=== PATIENT | male | born 1950 | race Caucasian/White ===

== ENCOUNTER → 2019-12-28 08:49 | Outpatient (BNVA) | payer SELFPAY | PROVIDERS: PCP Family Medicine; Visit Provider Internal Medicine ==

== ENCOUNTER 2020-01-24 09:40 | Outpatient (REF) | payer MEDICARE, SELFPAY ==
[2020-01-24 11:41] LABS: Glucose Urine UA NEG (NEG); Leukocyte Esterase Urine NEG (NEG); Nitrite Urine NEG (NEG); Urine Blood NEG (NEG); Urine Ketones NEG (NEG); Urine Protein NEG (NEG-TRACE)
[2020-01-24 11:47] LABS: Appearance Urine CLEAR; Color Urine YELLOW
== END 2020-01-24 09:41 | disposition home or self-care (01) ==
LOC: HO.HMGCLDS 09:40
PROVIDERS: PCP Family Medicine; Visit Provider Family Medicine
DX: R80.9 Proteinuria, unspecified (principal)
CPT/HCPCS: 81003

== ENCOUNTER 2020-03-26 08:52 | Outpatient (REF) | payer MEDICARE, SELFPAY ==
[2020-03-26 11:47] LABS: MANUAL DIFF FLAG NO
[2020-03-26 11:53] LABS: Basophils Percent Auto 0.4 % (0-2); Eosinophils Absolute Auto 0.2 X10*3/uL (0.0-0.4); Eosinophils Percent Auto 2.3 % (0-4); Hematocrit 48.6 % (42-52); Hemoglobin 16.3 g/dl (14.0-18.0); Imm Gran Abs Auto 0.03 X10*3/uL (0.00-0.03); Imm Gran Pct Auto 0.4 % (0.0-0.4); Lymphocytes Absolute Auto 1.5 X10*3/uL (1.2-4.9); Lymphocytes Percent Auto 21.3 % (20-40); Mean Corpuscular HGB Conc 33.5 g/dl (31.0-36.0); Mean Corpuscular Hemoglobin 32.5 pg (27.0-33.0); Monocytes Absolute Auto 0.7 X10*3/uL (0.1-1.2); Monocytes Percent Auto 10.3 % (2-11); Neutrophils Absolute Auto 4.6 X10*3/uL (2.0-8.3); Neutrophils Percent Auto 65.3 % (45-73); Platelet Count 295 X10*3/uL (160-400); Red Blood Count 5.01 X10*6/uL (4.60-5.80); Red Cell Distribution Width 12.6 % (11.0-16.0)
[2020-03-26 12:40] LABS: Alanine Aminotransferase 37 U/L (0-40); Albumin Level 4.6 g/dL (3.5-5.0); Alkaline Phosphatase 95 U/L (39-117); Anion Gap 13 (12-20); Aspartate Amino Transferase 25 U/L (5-37); Bilirubin Total 0.9 mg/dL (0.0-1.0); Blood Urea Nitrogen 23 mg/dL (9-16); C Reactive Protein 0.38 mg/dL (< or = 0.50); Calcium 10.1 mg/dL (8.4-10.2); Carbon Dioxide 29 mmol/L (22-29); Chloride 102 mmol/L (96-108); Estimated Glomerular Filt Rate > 60; Glucose Random 87 mg/dL (60-115); Potassium 4.7 mmol/L (3.3-5.1); Sodium 139 mmol/L (135-145); Total Protein 7.1 g/dL (6.5-8.0); Uric Acid 6.5 mg/dL (3.4-7.0)
[2020-03-26 12:47] LABS: Erythrocyte Sedimentation Rate 4 MM/HR (0-15)
== END 2020-03-26 08:53 | disposition home or self-care (01) ==
LOC: HO.HMGCLDS 08:52
PROVIDERS: PCP Family Medicine; Visit Provider Internal Medicine Rheumatology
DX: M10.9 Gout, unspecified (principal); Z79.899 Other long term (current) drug therapy
CPT/HCPCS: 36415; 80053; 84550; 85025; 85652; 86140

== ENCOUNTER 2020-04-20 10:08 | Outpatient (REF) | payer MEDICARE, SELFPAY ==
[2020-04-20 12:19] LABS: Alanine Aminotransferase 34 U/L (0-40); Anion Gap 13 (12-20); Blood Urea Nitrogen 22 mg/dL (9-16); Carbon Dioxide 29 mmol/L (22-29); Chloride 103 mmol/L (96-108); Estimated Glomerular Filt Rate > 60; Potassium 4.5 mmol/L (3.3-5.1); Sodium 140 mmol/L (135-145)
[2020-04-20 12:24] LABS: Free T4 (Free Thyroxine) 0.93 ng/dL (0.71-1.85); Thyroid Stimulating Hormone 1.72 uIU/mL (0.32-4.0)
== END 2020-04-20 10:09 | disposition home or self-care (01) ==
LOC: HO.HMGCLDS 10:08
PROVIDERS: PCP Family Medicine; Visit Provider Family Medicine
DX: E03.9 Hypothyroidism, unspecified (principal); E78.00 Pure hypercholesterolemia, unspecified; I10 Essential (primary) hypertension; Z79.899 Other long term (current) drug therapy
CPT/HCPCS: 36415; 80051; 82550; 82565; 84439; 84443; 84460; 84520

== ENCOUNTER → 2020-06-25 09:26 | Outpatient (BNVA) | payer SELFPAY | PROVIDERS: PCP Family Medicine; Visit Provider Internal Medicine | DX: Z02.79 Encounter for issue of other medical certificate (principal) ==

== ENCOUNTER 2020-12-17 09:37 | Day surgery (SDC) | payer MEDICARE, SELFPAY ==
--- NOTE | 2020-12-14 08:45 | P.CONAN_ITS ---
Documented by User: Sherry Shetty NP 12/14/20 08:45 HPI - Anesthesia Eval Consult details Narrative: 70yo M for Upper Endoscopy and Colonoscopy [facility] Past Medical History Medical History (Updated 12/10/20 @ 16:15 by Janiya Lazaro, HILARIO) Anxiety Arthritis Bilateral hearing loss Cough GERD (gastroesophageal reflux disease) Gout Hiatal hernia History of kidney stones Hyperlipidemia Hypothyroidism On beta gabe at home Surgical History Surgical History (Updated 12/10/20 @ 16:08 by Janiya Lazaro, HILARIO) History of esophagogastroduodenoscopy (EGD) History of eye surgery History of nasal surgery History of rectal surgery Hx laparoscopic cholecystectomy Hx of colonoscopy Social History Social History Patient Tobacco Use Status: Never used Tobacco Second Hand Smoke Exposure: No Use of substances other than those prescribed or required for medical reasons: No Are you DNR?: No Advance Directives: No Advance Directives Information Provided: Yes Advance Directives on File: No Meds Allergies Allergy/AdvReac Type Severity Reaction Status Date / Time niacin [NIACIN] Allergy Intermediate RASH, Verified 12/17/20 09:57 strange sensation/overheats Home Medications Medication Instructions Recorded Confirmed Last Taken Type allopurinol 300 mg tablet 1 tab PO DAILY 12/10/20 12/10/20 Unknown History calcium carbonate 300 mg (750 mg) 300 mg PO BID PRN 12/10/20 12/10/20 Unknown History chewable tablet (Tums) cetirizine 10 mg tablet (Allergy 10 mg PO DAILY 12/10/20 12/10/20 Unknown History Relief (cetirizine)) gemfibrozil 600 mg tablet 1 tab PO DAILY 12/10/20 12/10/20 Unknown History levothyroxine 150 mcg tablet 1 tab PO DAILY 12/10/20 12/10/20 Unknown History metoprolol succinate 25 mg 1 tab PO DAILY 12/10/20 12/10/20 Unknown History tablet,extended release 24 hr multivitamin 1 tab PO DAILY 12/10/20 12/10/20 Unknown History omeprazole 20 mg capsule,delayed 1 cap PO BID 12/10/20 12/10/20 Unknown History release Exam Exam Date and Time: December 14, 2020 0845 Assessment and Plan Assessment Anesthesia Assessment: Chart Reviewed Documented by User: Emily Marcelo MD 12/17/20 10:08 [facility] Past Medical History Medical History (Updated 12/10/20 @ 16:15 by Janiya Lazaro, RN) Anxiety Arthritis Bilateral hearing loss Cough GERD (gastroesophageal reflux disease) Gout Hiatal hernia History of kidney stones Hyperlipidemia Hypothyroidism On beta gabe at home Family History Family history of problems with anesthesia: No Surgical History Surgical History (Updated 12/10/20 @ 16:08 by Janiya Lazaro, RN) History of esophagogastroduodenoscopy (EGD) History of eye surgery History of nasal surgery History of rectal surgery Hx laparoscopic cholecystectomy Hx of colonoscopy History of Problems with Anesthesia: No Social History Social History Patient Tobacco Use Status: Never used Tobacco Second Hand Smoke Exposure: No Use of substances other than those prescribed or required for medical reasons: No Are you DNR?: No Advance Directives: No Advance Directives Information Provided: Yes Advance Directives on File: No Meds Allergies Allergy/AdvReac Type Severity Reaction Status Date / Time niacin [NIACIN] Allergy Intermediate RASH, Verified 12/17/20 09:57 strange sensation/overheats Home Medications Medication Instructions Recorded Confirmed Last Taken Type allopurinol 300 mg tablet 1 tab PO DAILY 12/10/20 12/10/20 Unknown History calcium carbonate 300 mg (750 mg) 300 mg PO BID PRN 12/10/20 12/10/20 Unknown History chewable tablet (Tums) cetirizine 10 mg tablet (Allergy 10 mg PO DAILY 12/10/20 12/10/20 Unknown History Relief (cetirizine)) gemfibrozil 600 mg tablet 1 tab PO DAILY 12/10/20 12/10/20 Unknown History levothyroxine 150 mcg tablet 1 tab PO DAILY 12/10/20 12/10/20 Unknown History metoprolol succinate 25 mg 1 tab PO DAILY 12/10/20 12/10/20 Unknown History tablet,extended release 24 hr multivitamin 1 tab PO DAILY 12/10/20 12/10/20 Unknown History omeprazole 20 mg capsule,delayed 1 cap PO BID 12/10/20 12/10/20 Unknown History release Exam Airway Mallampati Class: II (Multiple caps laterally) TM Dist: >3cm Neck ROM: Full Heart: rrr Lungs: cta Assessment and Plan Assessment Anesthesia Assessment: Anesthesia Plan Discussed and Chart Reviewed Final Anesthetic Review Family History of Problems with Anesthesia: No History of Problems with Anesthesia: No ASA Class: III Final Preanesthetic Review: No Changes in Pt Med Stat and Meds/Allgs Chart Reviewed Patient Risk: Intermediate Procedure Risk: Intermediate Anesthetic Plan Anesthetic Plan: MAC: Disposition: Standard PACU
[2020-12-17 09:49] VITALS: BP 127/81; PULSE 88; RESP 16; TEMP 36.2; O2SAT 96; BMI 36.0
--- NOTE | 2020-12-17 10:33 | P.CONAN_ITS ---
FORMERLY [facility], LATER [facility] Past Medical History Medical History (Updated 12/10/20 @ 16:15 by Janiya Lazaro RN) Anxiety Arthritis Bilateral hearing loss Cough GERD (gastroesophageal reflux disease) Gout Hiatal hernia History of kidney stones Hyperlipidemia Hypothyroidism On beta gabe at home Family History Family history of problems with anesthesia: No Surgical History Surgical History (Updated 12/10/20 @ 16:08 by Janiya Lazaro RN) History of esophagogastroduodenoscopy (EGD) History of eye surgery History of nasal surgery History of rectal surgery Hx laparoscopic cholecystectomy Hx of colonoscopy History of Problems with Anesthesia: No Social History Social History Patient Tobacco Use Status: Never used Tobacco Second Hand Smoke Exposure: No Use of substances other than those prescribed or required for medical reasons: No Are you DNR?: No Advance Directives: No Advance Directives Information Provided: Yes Advance Directives on File: No Meds Allergies Allergy/AdvReac Type Severity Reaction Status Date / Time niacin [NIACIN] Allergy Intermediate RASH, Verified 12/17/20 09:57 strange sensation/overheats Active Medications: Current Medications Lactated Ringer's (Lr) 1,000 mls @ 100 mls/hr IVCONT .Q10H SIA Sodium Biphosphate/Sodium Phosphate (Sodium Phosphate,[place]-Dibasic 133 Ml Enema) 133 ml AL ONCE PRN PRN Reason: Poor Colonoscopy Prep Results Home Medications Medication Instructions Recorded Confirmed Last Taken Type allopurinol 300 mg tablet 1 tab PO DAILY 12/10/20 12/10/20 Unknown History calcium carbonate 300 mg (750 mg) 300 mg PO BID PRN 12/10/20 12/10/20 Unknown History chewable tablet (Tums) cetirizine 10 mg tablet (Allergy 10 mg PO DAILY 12/10/20 12/10/20 Unknown History Relief (cetirizine)) gemfibrozil 600 mg tablet 1 tab PO DAILY 12/10/20 12/10/20 Unknown History levothyroxine 150 mcg tablet 1 tab PO DAILY 12/10/20 12/10/20 Unknown History metoprolol succinate 25 mg 1 tab PO DAILY 12/10/20 12/10/20 Unknown History tablet,extended release 24 hr multivitamin 1 tab PO DAILY 12/10/20 12/10/20 Unknown History omeprazole 20 mg capsule,delayed 1 cap PO BID 10/25/21 10/25/21 Unknown History release Exam Exam Date and Time: December 17, 2020 1033 Height,Weight and Vital Signs: Height 5 ft 7 in Weight 104.326 kg Last Vital Signs Temp 97.2 F 12/17/20 09:49 Pulse 88 12/17/20 09:49 Resp 16 12/17/20 09:49 BP 127/81 12/17/20 09:49 Pulse Ox 96 12/17/20 09:49 Airway Mallampati Class: II TM Dist: >3cm Neck ROM: Full Heart: rrr Lungs: cta Assessment and Plan Assessment Anesthesia Assessment: Anesthesia Plan Discussed and Chart Reviewed Final Anesthetic Review Family History of Problems with Anesthesia: No History of Problems with Anesthesia: No NPO: Yes ASA Class: III Final Preanesthetic Review: No Changes in Pt Med Stat, Meds/Allgs Chart Reviewed and Consent Obtained/Reviewed Patient Risk: Intermediate Procedure Risk: Intermediate Anesthetic Plan Anesthetic Plan: MAC: Disposition: Standard PACU
[2020-12-17 12:11] VITALS: BP 112/76; PULSE 82; RESP 16; TEMP 36.7; O2SAT 94
--- NOTE | 2020-12-17 12:16 | P.BOP_ITS ---
Brief Operative Note Date of Service: 12/17/20 Pre-op diagnosis: GERD, Screening Post-op diagnosis: other (Hiatal hernia, Gastric polyps, Diverticulosis) Procedure: EGD with biopsies, Colonoscopy to the cecum Surgeon: Mohit Vasquez Anesthesia: MAC Was an Raise Drill Operator used for this Procedure?: No Estimated blood loss (mL): 3.0 Pathology: other (A. Gastric polyps B. EG Junction at 35cm) Condition: stable Disposition: PACU
[2020-12-17 12:30] VITALS: BP 115/93; PULSE 73; RESP 18; TEMP 36.7; O2SAT 99
--- NOTE | 2020-12-17 20:25 | OP_ITS ---
SURGEON: Mohit Vasquez MD INDICATIONS: The patient presents for evaluation of chronic gastroesophageal reflux and colorectal cancer screening. Full consent has been obtained from him for this, including risks of bleeding and perforation. PREOPERATIVE DIAGNOSIS: POSTOPERATIVE DIAGNOSIS: PROCEDURE PERFORMED: Esophagogastroduodenoscopy with biopsies, and colonoscopy to cecum. ESTIMATED BLOOD LOSS: COMPLICATIONS: ANESTHESIA: Monitored anesthesia care. ASSISTANTS: SPECIMENS: PREOPERATIVE DIAGNOSES: Gastroesophageal reflux and colorectal cancer screening. POSTOPERATIVE DIAGNOSES: Gastroesophageal reflux and colorectal cancer screening, hiatal hernia, gastric polyps, diverticulosis and internal hemorrhoids. DESCRIPTION OF PROCEDURE: The patient was placed in the left lateral decubitus position. The Olympus video gastroscope was passed in the posterior oropharynx and upper esophagus under direct vision. The scope was passed slowly into the distal esophagus. The gastroesophageal junction appeared at 35 cm. This area was slightly irregular consistent with chronic reflux, but there was no evidence of any esophagitis nor any definitive evidence of Ramirez's mucosa. The scope entered into the stomach. There was a small to moderate-sized hiatal hernia. The scope was advanced to the pylorus and the duodenum was cannulated the descending portion. The duodenum including the bulb appeared normal without mass or ulceration. The scope was withdrawn back in the stomach. The gastric antrum and body appeared normal with good peristalsis. The scope was retroflexed visualizing the proximal stomach carefully, which revealed multiple hyperplastic appearing gastric polyps but with no sign of any mass or ulceration. Several of polyps were biopsied. The scope was withdrawn back in the esophagus. Biopsies were obtained at the EG junction at 35 cm. Proximal to this, the esophageal mucosa appeared normal. The scope was withdrawn from the patient. He was turned around for the colonoscopy. The digital rectal exam revealed no abnormalities. The Olympus video pediatric colonoscope was entered into the rectum and advanced easily to the cecum. Once in the cecum, I did identify normal-appearing cecal pouch with appendiceal orifice and a normal-appearing ileocecal valve. There was transillumination of light deep in the right lower quadrant. The entire cecum and ileocecal valve appeared normal. The scope was slowly withdrawn assessing all mucosal surfaces carefully. Preparation was excellent. I did not visualize any sign of polyps, colitis, nor angiodysplasia. There was a mild amount of sigmoid diverticulosis. In the rectum, scope was retroflexed visualizing internal hemorrhoids, but no other pathology. The rectal mucosa appeared normal. The scope was straightened out and withdrawn from the patient. He tolerated the procedure well and was returned to the recovery area in stable condition. IMPRESSION: 1. Hiatal hernia, gastroesophageal reflux. 2. Gastric polyps. 3. Diverticulosis. 4. Internal hemorrhoids. PLAN: The results of biopsy will be checked. If the upper endoscopy biopsies happen to show Ramirez's esophagus, I would recommend a repeat upper endoscopy in 3 years. If there is no evidence of any Ramirez's esophagus, I do not think he will need any further upper endoscopies. He was advised to continue his daily omeprazole. Given today's negative colonoscopy, negative exam in 2009, and no family history of colon cancer other than his mother in her 70s, I would be inclined to hold off on any further screening colonoscopies given his age. He would otherwise see me on a p.r.n. basis. MD SUE Soto/LAWRENCE / [phone] MAX
== END 2020-12-17 13:24 | disposition home or self-care (01) ==
PROVIDERS: PCP Family Medicine; Visit Provider Internal Medicine
PROC: (CPT 43239; principal; 2020-12-17 11:10)
DX: Z12.11 Encounter for screening for malignant neoplasm of colon (principal); Z80.0 Family history of malignant neoplasm of digestive organs; K57.30 Diverticulosis of large intestine without perforation or abscess without bleeding; K64.8 Other hemorrhoids; K21.9 Gastro-esophageal reflux disease without esophagitis; K31.7 Polyp of stomach and duodenum; K44.9 Diaphragmatic hernia without obstruction or gangrene; Z79.899 Other long term (current) drug therapy
CPT/HCPCS: 43239; G0105; 88305; 88342

== ENCOUNTER → 2020-12-25 09:32 | Outpatient (BNVA) | payer SELFPAY | PROVIDERS: PCP Family Medicine; Visit Provider Internal Medicine | DX: Z02.79 Encounter for issue of other medical certificate (principal) ==

== ENCOUNTER 2021-02-11 08:13 | Outpatient (REF) | payer MEDICARE, SELFPAY ==
[2021-02-11 11:53] LABS: Estimated Average Glucose 120 mg/dL; Hemoglobin A1c % 5.8 %
[2021-02-11 12:00] LABS: Alanine Aminotransferase 32 U/L (0-40); Calcium 9.8 mg/dL (8.4-10.2); Estimated Glomerular Filt Rate > 60; Glucose Fasting 99 mg/dL (60-99)
[2021-02-11 12:09] LABS: Free T4 (Free Thyroxine) 0.97 ng/dL (0.71-1.85); Thyroid Stimulating Hormone 0.78 uIU/mL (0.32-4.0)
== END 2021-02-11 08:14 | disposition home or self-care (01) ==
LOC: HO.HMGCLDS 08:13
PROVIDERS: PCP Family Medicine; Visit Provider Family Medicine
DX: E03.9 Hypothyroidism, unspecified (principal); E83.52 Hypercalcemia; Z79.899 Other long term (current) drug therapy; Z83.3 Family history of diabetes mellitus
CPT/HCPCS: 36415; 82310; 82550; 82565; 82947; 83036; 84439; 84443; 84460

== ENCOUNTER 2021-02-12 09:06 | Outpatient (REF) | payer MEDICARE, SELFPAY ==
--- NOTE | ~2021-02-12 | XR_ITS ---
EXAMINATION: XR CHEST CLINICAL INFORMATION: Cough. Status post Covid positive. COMPARISON: April 08, 2019 and January 28, 2018 TECHNIQUE: 2 views of the chest were obtained. FINDINGS: Chronic changes of interstitial lung disease and scarring at the left base is seen. No definite new focus of disease is appreciated. Heart normal size. No evidence of pulmonary edema. No pneumothorax or significant pleural effusion. XR/XR chest 2V IMPRESSION: Persistent left lung base disease without change from April 08, 2019
== END 2021-02-12 09:07 | disposition home or self-care (01) ==
LOC: HO.HMGCX 09:06
PROVIDERS: PCP Family Medicine; Visit Provider Family Medicine
DX: R06.00 Dyspnea, unspecified (principal); R05.9 Cough, unspecified; Z86.16 Personal history of COVID-19
CPT/HCPCS: 71046

== ENCOUNTER 2021-03-05 10:16 | Outpatient (REF) | payer MEDICARE, SELFPAY ==
[2021-03-05 11:35] LABS: Appearance Urine CLEAR; Color Urine YELLOW; Glucose Urine UA NEG (NEG); Leukocyte Esterase Urine NEG (NEG); Nitrite Urine NEG (NEG); PH 5.5 (5.0-8.0); Urine Blood NEG (NEG); Urine Ketones NEG (NEG); Urine Protein NEG (NEG-TRACE)
== END 2021-03-05 10:17 | disposition home or self-care (01) ==
LOC: HO.HMGCLDS 10:16
PROVIDERS: Visit Provider Family Medicine
DX: R80.9 Proteinuria, unspecified (principal)
CPT/HCPCS: 81003

== ENCOUNTER 2021-03-15 10:29 | Outpatient (REF) | payer MEDICARE, SELFPAY ==
--- NOTE | 2021-03-15 | PFT_ITS ---
Forced vital capacity 63, FEV1 76%. FEV1/FVC ratio is 88. FEF 25/75 204%. MVV 112%. All these values indicate that the flow volumes are normal and no obstructive disorder noted. There was no response to bronchodilator therapy. Lung volumes, total lung capacity is 64% and residual volume 70%. Diffusion capacity not performed. CONCLUSION: These findings are suggestive of moderately severe restrictive pulmonary disorder. No significant obstructive airway disorder. Clinical correlation recommended. MD NILES Muro/MODL / [phone]
== END 2021-03-15 10:30 | disposition home or self-care (01) ==
LOC: HO.RESP 10:29
PROVIDERS: PCP Family Medicine; Visit Provider Family Medicine
DX: J84.10 Pulmonary fibrosis, unspecified (principal); R05.9 Cough, unspecified
CPT/HCPCS: 94060; 94727

== ENCOUNTER → 2021-03-22 09:59 | Outpatient (BNVA) | payer MEDICARE, SELFPAY | PROVIDERS: PCP Family Medicine; Visit Provider Internal Medicine Pulmonary Disease | DX: J84.10 Pulmonary fibrosis, unspecified (principal); U09.9 Post COVID-19 condition, unspecified; R06.00 Dyspnea, unspecified | CPT/HCPCS: 99202 ==

== ENCOUNTER 2021-04-25 10:54 | Outpatient (REF) | payer MEDICARE, SELFPAY ==
[2021-04-25 13:40] LABS: MANUAL DIFF FLAG NO
[2021-04-25 13:46] LABS: Basophils Percent Auto 0.3 % (0-2); Eosinophils Absolute Auto 0.2 X10*3/uL (0.0-0.4); Eosinophils Percent Auto 2.6 % (0-4); Hematocrit 46.4 % (42.0-52.0); Hemoglobin 15.2 g/dl (14.0-18.0); Imm Gran Abs Auto 0.03 X10*3/uL (0.00-0.03); Imm Gran Pct Auto 0.5 % (0.0-0.4); Lymphocytes Absolute Auto 1.3 X10*3/uL (1.2-4.9); Lymphocytes Percent Auto 19.8 % (20-40); Mean Corpuscular HGB Conc 32.8 g/dl (31.0-36.0); Mean Corpuscular Hemoglobin 32.1 pg (27.0-33.0); Mean Corpuscular Volume 98.1 fL (80.0-98.0); Mean Platelet Volume 10.9 fL (9.4-12.4); Monocytes Absolute Auto 0.6 X10*3/uL (0.1-1.2); Monocytes Percent Auto 9.2 % (2-11); Neutrophils Absolute Auto 4.3 x10*3/uL (2.0-8.3); Neutrophils Percent Auto 67.6 % (45-73); Platelet Count 288 X10*3/uL (160-400); Red Blood Count 4.73 X10*6/uL (4.60-5.80); Red Cell Distribution Width 12.9 % (11.0-16.0); White Blood Count 6.4 X10*3/uL (4.8-10.8)
[2021-04-25 13:58] LABS: Alanine Aminotransferase 32 U/L (0-40); Albumin Level 4.3 g/dL (3.5-5.0); Alkaline Phosphatase 86 U/L (39-117); Anion Gap 13 (12-20); Aspartate Amino Transferase 28 U/L (5-37); Blood Urea Nitrogen 27 mg/dL (9-16); C Reactive Protein 0.61 mg/dL (< or = 0.50); Calcium 9.8 mg/dL (8.4-10.2); Carbon Dioxide 24 mmol/L (22-29); Chloride 105 mmol/L (96-108); Estimated Glomerular Filt Rate > 60; Glucose Random 132 mg/dL (60-115); Potassium 4.4 mmol/L (3.3-5.1); Sodium 138 mmol/L (135-145); Total Protein 6.8 g/dL (6.5-8.0)
[2021-04-25 15:02] LABS: Erythrocyte Sedimentation Rate 6 MM/HR (0-15)
== END 2021-04-25 10:55 | disposition home or self-care (01) ==
LOC: HO.HMGCLDS 10:54
PROVIDERS: Visit Provider Internal Medicine Rheumatology
DX: M10.9 Gout, unspecified (principal); Z79.899 Other long term (current) drug therapy
CPT/HCPCS: 36415; 80053; 85025; 85652; 86140

== ENCOUNTER → 2021-05-22 09:38 | Outpatient (REF) | payer MEDICARE, SELFPAY ==
--- NOTE | 2021-05-22 09:41 | CA_ITS ---
Transthoracic Echocardiogram Patient (Last, First, Middle): Jermaine Stiles P Gender: Male Date of : 1950 Age: 71 Procedure Date: 05/22/2021 Procedure Type: Transthoracic Echocardiogram Location: OP Height: 170.18 cm Weight: 102.06 kg BSA: 2.13 m2 Heart Rate: bpm BP: 124 / 80 mmHg Weir Fisherman: Referring MD: Ricardo Lowry MD Symptoms: R06.00 - Dyspnea, unspecified Study Quality: Fair ECG Rhythm: Sinus Conclusions: - 1. Normal LV systolic function with impaired relaxation filling pattern 2. Normal cardiac valvular Doppler 3. Normal RV systolic pressure 4. No gross pericardial effusion Findings Left Ventricle Normal left ventricular size, thickness, and systolic function. The visually estimated ejection fraction is between 55-60%. Spectral Doppler is indicative of an impaired relaxation filling pattern. E/E prime ratio is between 8 and 15 consistent with indeterminate filling pressures. There is at least moderate focal asymmetric hypertrophy of the basal septum without any obstructive physiology Right Ventricle Normal right ventricular cavity size and systolic function. Atria Both atria are normal in size. There is no evidence of interatrial shunt. Aortic Valve Normal aortic valve structure and function. There is no aortic valve stenosis. There is no aortic valve regurgitation. Mitral Valve Normal mitral valve structure and function. There is trace mitral valve regurgitation. There is no mitral valve stenosis. Pulmonic Valve The pulmonic valve was not well visualized. Tricuspid Valve Normal tricuspid valve structure. There is trace tricuspid valve regurgitation. The right ventricular systolic pressure is normal. Prior Study Comparison No prior study available for comparison. Measurements 2D Linear Measurements IVSd: 0.93 0.6-0.9/0.6-1.0 cm LVIDd: 4.32 3.9-5.3/4.2-5.9 cm LVIDd Index: 2.03 2.4-3.2/2.2-3.1 cm/m2 LVIDs: 2.95 2.0-3.6 cm LVPWd: 1.03 0.7-1.1 cm LA Diam: 2.90 2.7-3.8/3.0-4.0 cm LAIDs Index: 1.36 1.5-2.3 cm/m2 LV Mass: 173.73 67-162/88-224 g LV Mass Index: 81.57 43-95/49-115 g/m2 LVOT Diam: 2.40 3.0+(-)1.3 cm 2D Systolic Function EF 4C: 59.60 >55% EF 2C: 55.90 >55% EF BiP: 58.20 >55% Mitral Valve MV Pk E: 0.65 MV PK A: 1.11 MV Decel Time: 123.00 E/A: 0.60 E'Lateral: 6.85 E'Medial: 4.35 E/E' Med: 14.90 E/E' Lat: 9.40 PHT: 36.00 MVA PHT: 6.11 Decel Burnett: 5.26 Aortic Valve AoV Pk Abhi: 1.22 AoV Mn Abhi: 0.83 AoV VTI: 0.25 AoV Pk Grad: 6.00 Aov Mn Grad: 3.00 JODY Cont.VTI: 3.79 LVOT LVOT Pk Abhi: 0.93 LVOT Mn Abhi: 0.66 LVOT VTI: 0.21 LVOT Pk Grad: 3.00 LVOT Mn Grad: 2.00 LVOT Diam: 2.40 LVOT Area: 4.52 Diastolic Function MV Pk E: 0.65 MV Pk A: 1.11 E/A: 0.60 E'Medial: 4.35 E/E' Med: 14.90 E' Laterial: 6.85 E/E' Lat: 9.40 Right Ventricle TAPSE (mm): 24.00 Tricuspid Valve TR Pk Abhi: 2.04 TR Pk Grad: 17.00 RA Press: 3.00 RVSP: 20.00 Great Vessels Aorta Sinus of Valsalva: 3.80 2.0-3.5 cm Ao Asc: 3.70 2.1-3.4 cm Pulmonary Valve PV Pk Abhi: 0.77 Peak PV Grad: 2.00 Updated in Other Vendor System with Status of Final Connor Linn MD electronically signed on 05/23/2021 9:20:17 AM with status of Final
== END ==
LOC: HO.CARD 09:38
PROVIDERS: Visit Provider Internal Medicine Pulmonary Disease
DX: R06.00 Dyspnea, unspecified (principal)
CPT/HCPCS: 93306

== ENCOUNTER → 2021-05-23 10:22 | Outpatient (BNVA) | payer MEDICARE, SELFPAY | PROVIDERS: PCP Family Medicine; Visit Provider Internal Medicine | DX: U09.9 Post COVID-19 condition, unspecified (principal); J84.10 Pulmonary fibrosis, unspecified; R05.9 Cough, unspecified | CPT/HCPCS: 99212 ==

== ENCOUNTER → 2021-06-24 10:22 | Outpatient (BNVA) | payer SELFPAY | PROVIDERS: PCP Family Medicine; Visit Provider Internal Medicine | DX: Z02.79 Encounter for issue of other medical certificate (principal) ==

== ENCOUNTER → 2021-06-27 10:40 | Outpatient (BNVA) | payer MEDICARE, SELFPAY | PROVIDERS: PCP Family Medicine; Visit Provider Internal Medicine | DX: J84.10 Pulmonary fibrosis, unspecified (principal); U09.9 Post COVID-19 condition, unspecified; R05.9 Cough, unspecified; R06.00 Dyspnea, unspecified | CPT/HCPCS: 99212 ==

== ENCOUNTER 2021-09-16 12:30 | Outpatient (REF) | payer MEDICARE, SELFPAY ==
[2021-09-16 14:50] LABS: MANUAL DIFF FLAG NO
[2021-09-16 15:00] LABS: Appearance Urine CLEAR; Color Urine YELLOW; Glucose Urine UA NEG (NEG); Leukocyte Esterase Urine NEG (NEG); Nitrite Urine NEG (NEG); PH 5.5 (5.0-8.0); Specific Gravity - Urine 1.025 (1.005-1.025); Urine Blood NEG (NEG); Urine Ketones NEG (NEG); Urine Protein TRACE MG/DL (NEG-TRACE)
[2021-09-16 15:05] LABS: Basophils Percent Auto 0.5 % (0-2); Eosinophils Absolute Auto 0.3 X10*3/uL (0.0-0.4); Eosinophils Percent Auto 4.8 % (0-4); Hematocrit 48.7 % (42.0-52.0); Hemoglobin 15.9 g/dl (14.0-18.0); Imm Gran Abs Auto 0.04 X10*3/uL (0.00-0.03); Imm Gran Pct Auto 0.7 % (0.0-0.4); Lymphocytes Absolute Auto 1.5 X10*3/uL (1.2-4.9); Lymphocytes Percent Auto 24.7 % (20-40); Mean Corpuscular HGB Conc 32.6 g/dl (31.0-36.0); Mean Corpuscular Hemoglobin 32.1 pg (27.0-33.0); Mean Corpuscular Volume 98.4 fL (80.0-98.0); Mean Platelet Volume 10.4 fL (9.4-12.4); Monocytes Absolute Auto 0.9 X10*3/uL (0.1-1.2); Monocytes Percent Auto 15.2 % (2-11); Neutrophils Absolute Auto 3.2 x10*3/uL (2.0-8.3); Neutrophils Percent Auto 54.1 % (45-73); Platelet Count 257 X10*3/uL (160-400); Red Blood Count 4.95 X10*6/uL (4.60-5.80)
[2021-09-16 15:19] LABS: Alanine Aminotransferase 39 U/L (0-40); Albumin Level 4.4 g/dL (3.5-5.0); Alkaline Phosphatase 92 U/L (39-117); Anion Gap 14 (12-20); Aspartate Amino Transferase 23 U/L (5-37); Blood Urea Nitrogen 26 mg/dL (9-16); Calcium 9.6 mg/dL (8.4-10.2); Carbon Dioxide 27 mmol/L (22-29); Chloride 103 mmol/L (96-108); Estimated Glomerular Filt Rate 55; Glucose Random 85 mg/dL (60-115); Potassium 4.8 mmol/L (3.3-5.1); Sodium 139 mmol/L (135-145)
[2021-09-16 15:34] LABS: Free T4 (Free Thyroxine) 1.03 ng/dL (0.71-1.85)
[2021-09-21 07:06] LABS: Angiotensin Converting Enzyme 28 U/L (9-67)
== END 2021-09-16 12:31 | disposition home or self-care (01) ==
LOC: HO.HMGCLDS 12:30
PROVIDERS: PCP Family Medicine; Visit Provider Family Medicine
DX: R80.9 Proteinuria, unspecified (principal); E03.9 Hypothyroidism, unspecified; R06.02 Shortness of breath
CPT/HCPCS: 36415; 80053; 81003; 82164; 84439; 85025

== ENCOUNTER 2021-09-30 08:34 | Outpatient (REF) | payer MEDICARE, SELFPAY ==
--- NOTE | ~2021-09-30 | CT_ITS ---
EXAMINATION: CT CHEST WITHOUT CONTRAST CLINICAL INFORMATION: Pulmonary fibrosis, cough post COVID. Chest 02/12/2021. COMPARISON: None TECHNIQUE: 5 mm thin axial and reformatted 5 mm thick coronal and sagittal images were obtained. In addition 1.5 mm thin axial images were reconstructed and available for interpretation. DLP: 229 mGy-cm. FINDINGS: The lungs are well-expanded with scattered ground-glass opacities right upper lobe, right middle lobe, lingula and both lower lobes. There is subpleural reticular stranding and single-layer honeycombing changes are seen in both upper and lower lobes. There is interlobular interstitial thickening. There is no acute consolidation, pulmonary nodules or masses seen. There is no bronchiectasis or bronchial wall thickening or debris. The thyroid lobes are symmetric and normal. The central trachea and the bronchi are widely patent. Heart size and the great vessels are normal caliber. There is trace coronary artery calcification. No pericardial effusion seen. Small shotty lymph nodes are seen in the mediastinum. There is no pleural effusion or calcified pleural plaques. No abnormal axillary lymph nodes. The chest wall appears unremarkable. Visualized liver, spleen, pancreas and bilateral adrenal glands are unremarkable. The gallbladder has been removed. The partially visualized kidneys revealed bilateral perinephric stranding. Bone windows reveal moderate ventral spondylosis no lytic or sclerotic process seen. CT/CT chest wo con - High Res IMPRESSION: Scattered ground-glass opacities throughout lungs. Mild intralobular interstitial thickening and single-layer honeycombing in both upper and lower lobes. The above findings are most suspicious for chronic interstitial lung disease. No acute pneumonic consolidation, mass or pulmonary nodule. Small reactive less than 1 cm lymph nodes in the mediastinum.
== END 2021-09-30 08:35 | disposition home or self-care (01) ==
LOC: HO.CT 08:34
PROVIDERS: PCP Family Medicine; Visit Provider Internal Medicine
DX: R05.9 Cough, unspecified (principal); J84.10 Pulmonary fibrosis, unspecified; U09.9 Post COVID-19 condition, unspecified
CPT/HCPCS: 71250

== ENCOUNTER 2021-10-31 10:50 | Outpatient (REF) | payer MEDICARE, SELFPAY ==
--- NOTE | 2021-10-31 13:09 | PFT_ITS ---
Forced vital capacity 59%, FEV1 71%, FEV1/FVC ratio is 87. [id number] 156%, MVV 101%. Post bronchodilator therapy, there is further improvement in [id number]. Total lung capacity 63%. Residual volume 64%. Diffusion capacity, the patient was not able to perform adequate maneuver for FVC. CONCLUSION: These findings are consistent with moderately severe restrictive pulmonary disorder. No significant obstructive airway disorder. Compared to results of 03/15/2021, there is no significant change. Yasir Womack MD MSB/MODL / [phone]
== END 2021-10-31 10:51 | disposition home or self-care (01) ==
LOC: HO.RESP 10:50
PROVIDERS: PCP Family Medicine; Visit Provider Internal Medicine Pulmonary Disease
DX: J84.10 Pulmonary fibrosis, unspecified (principal)
CPT/HCPCS: 94060; 94727

== ENCOUNTER → 2021-11-07 11:55 | Outpatient (BNVA) | payer MEDICARE, SELFPAY | PROVIDERS: PCP Family Medicine; Visit Provider Internal Medicine | DX: U07.1 COVID-19 (principal); R05.9 Cough, unspecified; R06.00 Dyspnea, unspecified; J84.10 Pulmonary fibrosis, unspecified | CPT/HCPCS: Q3014 ==

== ENCOUNTER → 2021-12-09 11:25 | Outpatient (BNVA) | payer MEDICARE, SELFPAY | PROVIDERS: PCP Family Medicine; Visit Provider Internal Medicine | DX: J84.10 Pulmonary fibrosis, unspecified (principal); R05.9 Cough, unspecified; U09.9 Post COVID-19 condition, unspecified; J98.4 Other disorders of lung | CPT/HCPCS: 99212 ==

== ENCOUNTER → 2021-12-24 09:58 | Outpatient (BNVA) | payer SELFPAY | PROVIDERS: PCP Family Medicine; Visit Provider Internal Medicine | DX: Z02.79 Encounter for issue of other medical certificate (principal) ==

== ENCOUNTER → 2022-02-12 10:55 | Outpatient (BNVA) | payer MEDICARE, SELFPAY | PROVIDERS: PCP Family Medicine; Visit Provider Physician Assistant | DX: E66.9 Obesity, unspecified (principal); Z68.34 Body mass index [BMI] 34.0-34.9, adult | CPT/HCPCS: 99202 ==

== ENCOUNTER → 2022-03-10 10:52 | Outpatient (BNVA) | payer MEDICARE, SELFPAY | PROVIDERS: PCP Family Medicine; Visit Provider Dietitian, Registered | DX: E66.9 Obesity, unspecified (principal); Z68.33 Body mass index [BMI] 33.0-33.9, adult; Z71.3 Dietary counseling and surveillance | CPT/HCPCS: 97802 ==

== ENCOUNTER 2022-03-24 10:26 | Outpatient (REF) | payer MEDICARE, SELFPAY ==
[2022-03-24 11:18] LABS: MANUAL DIFF FLAG NO
[2022-03-24 11:40] LABS: Basophils Percent Auto 0.5 % (0-2); Eosinophils Absolute Auto 0.2 X10*3/uL (0.0-0.4); Eosinophils Percent Auto 2.9 % (0-4); Hematocrit 46.4 % (42.0-52.0); Hemoglobin 15.4 g/dl (14.0-18.0); Imm Gran Abs Auto 0.02 X10*3/uL (0.00-0.03); Imm Gran Pct Auto 0.3 % (0.0-0.4); Lymphocytes Absolute Auto 1.4 X10*3/uL (1.2-4.9); Lymphocytes Percent Auto 23.5 % (20-40); Mean Corpuscular HGB Conc 33.2 g/dl (31.0-36.0); Mean Corpuscular Hemoglobin 32.3 pg (27.0-33.0); Mean Corpuscular Volume 97.3 fL (80.0-98.0); Mean Platelet Volume 10.8 fL (9.4-12.4); Monocytes Absolute Auto 0.7 X10*3/uL (0.1-1.2); Neutrophils Absolute Auto 3.5 x10*3/uL (2.0-8.3); Neutrophils Percent Auto 60.8 % (45-73); Platelet Count 258 X10*3/uL (160-400); Red Blood Count 4.77 X10*6/uL (4.60-5.80); Red Cell Distribution Width 12.6 % (11.0-16.0); White Blood Count 5.8 X10*3/uL (4.8-10.8)
[2022-03-24 12:19] LABS: Alanine Aminotransferase 36 U/L (0-40); Albumin Level 4.2 g/dL (3.5-5.0); Alkaline Phosphatase 109 U/L (39-117); Anion Gap 12 (12-20); Aspartate Amino Transferase 26 U/L (5-37); Blood Urea Nitrogen 31 mg/dL (9-16); C Reactive Protein 0.74 mg/dL (< or = 0.50); Calcium 9.4 mg/dL (8.4-10.2); Carbon Dioxide 28 mmol/L (22-29); Chloride 106 mmol/L (96-108); Estimated Glomerular Filt Rate > 60; Glucose Random 87 mg/dL (60-115); Potassium 4.6 mmol/L (3.3-5.1); Sodium 141 mmol/L (135-145); Total Protein 6.5 g/dL (6.5-8.0); Uric Acid 4.9 mg/dL (3.4-7.0)
[2022-03-24 12:26] LABS: Erythrocyte Sedimentation Rate 5 MM/HR (0-15)
== END 2022-03-24 10:27 | disposition home or self-care (01) ==
LOC: HO.HMGCLDS 10:26
PROVIDERS: PCP Family Medicine; Visit Provider Internal Medicine Rheumatology
DX: M10.9 Gout, unspecified (principal); Z79.899 Other long term (current) drug therapy
CPT/HCPCS: 36415; 80053; 84550; 85025; 85652; 86140

== ENCOUNTER 2022-03-28 09:41 | Outpatient (REF) | payer MEDICARE, SELFPAY ==
--- NOTE | ~2022-03-28 | FL_ITS ---
EXAMINATION: FL UPPER GI SERIES CLINICAL INFORMATION: Bariatric service evaluation, E66.01. K44.9 - Diaphragmatic hernia without obstruction or gangrene COMPARISON: CT chest 09/30/2021, barium swallow 05/09/2015. TECHNIQUE: Upper GI series is performed on 03/28/[address] Coats. Radiologist is away and unable to provide report. Submitted images are reviewed. Addendum requested for any additional fluoroscopic evaluation findings. The patient is imaged both upright and prone and using both thick and thin barium sulfate along with effervescent granules. Fluoroscopy time: 1.6 minutes. DAP: 51.928 Gycm2. Fluoroscopic spot images: 44 FINDINGS: The submitted images show no esophageal obstruction or focal stricture or ulceration. There is likely small intermittent sliding hiatal hernia. No gastroesophageal reflux appreciated. The stomach shows multiple small round circumscribed mucosal filling defects on double contrast imaging, some in the mid body of the stomach showing central small round collection of barium. There is no projection of contrast appreciated beyond the lumen. The appearance is suggestive of multiple small gastric polyps, some with central varioliform erosions. The duodenal bulb, post bulbar duodenum, and upper jejunal mucosal pattern are unremarkable. On the latter spot images, there is some amorphous barium in the right abdomen. It is uncertain if this is related to internal hernia, clumped small bowel, or bowel diverticula. This could be further assessed with small bowel series. Results called and discussed with ordering provider Manda Wolfe PA-C on 03/31/2022. Patient has history of prior GI consult and endoscopy in December 2020. Patient will be referred back to GI for further assessment and management. FL/FL upper GI w air IMPRESSION: -Probable multiple small gastric polyps, some with central varioliform erosions. -Nonspecific barium right abdomen on latter images (uncertain if internal hernia, stomach, small bowel, or bowel diverticula). -Probable small intermittent sliding hiatal hernia. -Addendum request submitted for the performing radiologist for any additional fluoroscopic evaluation findings.
== END 2022-03-28 09:42 | disposition home or self-care (01) ==
LOC: HO.XRAY 09:41
PROVIDERS: PCP Family Medicine; Visit Provider Physician Assistant
DX: K44.9 Diaphragmatic hernia without obstruction or gangrene (principal); E66.9 Obesity, unspecified; K21.9 Gastro-esophageal reflux disease without esophagitis
CPT/HCPCS: 74246

== ENCOUNTER → 2022-04-14 10:58 | Outpatient (BNVA) | payer MEDICARE, SELFPAY | PROVIDERS: PCP Family Medicine; Visit Provider Internal Medicine | DX: J84.10 Pulmonary fibrosis, unspecified (principal); J98.4 Other disorders of lung; R05.9 Cough, unspecified; U09.9 Post COVID-19 condition, unspecified | CPT/HCPCS: 99212 ==

== ENCOUNTER → 2022-04-18 11:14 | Outpatient (BNVA) | payer MEDICARE, SELFPAY | PROVIDERS: PCP Family Medicine; Referring Provider Family Medicine; Visit Provider Physician Assistant | DX: E66.9 Obesity, unspecified (principal); K21.9 Gastro-esophageal reflux disease without esophagitis; Z68.33 Body mass index [BMI] 33.0-33.9, adult | CPT/HCPCS: 99212 ==

== ENCOUNTER → 2022-05-23 09:20 | Outpatient (BNVA) | payer MEDICARE, SELFPAY | PROVIDERS: PCP Family Medicine; Visit Provider Physician Assistant | DX: E66.9 Obesity, unspecified (principal); J84.10 Pulmonary fibrosis, unspecified; Z68.33 Body mass index [BMI] 33.0-33.9, adult | CPT/HCPCS: 99212 ==

== ENCOUNTER 2022-06-20 09:56 | Outpatient (REF) | payer MEDICARE, SELFPAY ==
[2022-06-20 12:41] LABS: Free T4 (Free Thyroxine) 0.95 ng/dL (0.71-1.85); Thyroid Stimulating Hormone 0.79 uIU/mL (0.32-4.0)
== END 2022-06-20 09:57 | disposition home or self-care (01) ==
LOC: HO.HMGCLDS 09:56
PROVIDERS: PCP Family Medicine; Visit Provider Family Medicine
DX: E03.9 Hypothyroidism, unspecified (principal)
CPT/HCPCS: 36415; 84439; 84443

== ENCOUNTER → 2022-06-24 09:35 | Outpatient (BNVA) | payer SELFPAY | PROVIDERS: PCP Family Medicine; Visit Provider Internal Medicine | DX: Z02.79 Encounter for issue of other medical certificate (principal) ==

== ENCOUNTER → 2022-07-02 10:02 | Outpatient (BNVA) | payer MEDICARE, SELFPAY | PROVIDERS: PCP Family Medicine; Visit Provider Physician Assistant | DX: E66.9 Obesity, unspecified (principal); Z68.33 Body mass index [BMI] 33.0-33.9, adult; J84.10 Pulmonary fibrosis, unspecified | CPT/HCPCS: 99212 ==

== ENCOUNTER 2022-08-28 10:37 | Outpatient (AMB) | payer MEDICARE, SELFPAY ==
--- NOTE | 2022-08-28 10:39 | A.OFFVIS_ITS ---
Intake VS Expanded 08/28/22 10:40 Height 5 ft 7 in Weight 212 lb 6.4 oz BMI 33.3 BP 148/78 H Blood Pressure Location Rt brachial Blood Pressure Position Sitting Pulse 80 Pulse Source Pulse Oximeter Temp 97.5 F Temperature Source Temporal Artery Scan Pulse Oximetry 95 Oxygen Delivery Method Room Air Body Fat 65.0 Body Fat Percentage 30.6 Free Fat Mass 147.2 Muscle Mass 140.0 Visceral Mass 20.0 Water Mass 103.2 BMR 1,961 Intake Visit Reasons: (OV) F/U MWL Allergies niacin [NIACIN] Allergy (Intermediate, Verified 08/28/22 10:42) RASH, strange sensation/overheats HPI HPI Comments History of Present Illness Details Pt started our MWL program in Jan 2022 at 222.2 lbs. Originally was following our plan and lowest weight was 211.9. He gained 5 lbs and has now lost another 4 lbs for TBWL of 9.8 lbs or 4.4%. Has made some chnges - not eating out as much. Now eating more chicken breast. 7am - shake 10:30 - shake 1:30- meal protein and vegetable 6pm - dinner meal Exercise - works outside and walks short distances. [facility] Medical History Anxiety Arthritis Bilateral hearing loss Cough Cough COVID-19 GERD (gastroesophageal reflux disease) Gout Hiatal hernia History of kidney stones Hyperlipidemia Hypothyroidism On beta gabe at home Restrictive lung disease Surgical History History of esophagogastroduodenoscopy (EGD) History of eye surgery History of nasal surgery History of rectal surgery Hx laparoscopic cholecystectomy Hx of colonoscopy Social History Alcohol intake: current Alcohol intake frequency: holidays/special occasions only Patient Tobacco Use Status: Never used Tobacco Second Hand Smoke Exposure: No Assessment & Plan Assessment & Plan (1) Obesity: Code(s): E66.9 - Obesity, unspecified Plan: Pt has completed our MWL program and has learned alot about how to avoid salt in foods, portion control and balancing a healthy meal. His goal is to weigh 191 lbs or less to no longer be obese. Will continue meal plan of 2 shakes, and 2 meals per day. Exercise - goal of 30 minutes continuous movement 7 d per week. Patient is obese and is not considered stable at this time. I spent 30 minutes in total with patient reviewing/updating records, examining the patient and counseling the patient on weight management as detailed above. (2) Restrictive lung disease: Comment: PER PULMONARY FUNCTION TEST HE HAS MODERATELY SEVERE RESTRICTIVE. PULMONARY DISORDER THIS IS PARTLY DUE TO INTERSTITIAL LUNG DISEASE AND PARTLY DUE TO ABDOMINAL OBESITY. HE IS ADVISED TO DO DEEP BREATHING EXERCISES 3 TIMES A DAY. INCENTIVE SPIROMETRY DEVICE GIVEN FROM THE OFFICE. Code(s): J98.4 - Other disorders of lung Coding Level of Care Code Est Pt Level 4 (51883) Diagnoses Obesity E66.9 Restrictive lung disease J98.4
[2022-08-28 10:40] VITALS: BP 148/78; PULSE 80; TEMP 36.4; O2SAT 95; BMI 33.3
== END 2022-08-28 11:02 | disposition home or self-care (01) ==
PROVIDERS: PCP Family Medicine; Visit Provider Physician Assistant
DX: E66.9 Obesity, unspecified (principal); Z68.33 Body mass index [BMI] 33.0-33.9, adult; J98.4 Other disorders of lung
CPT/HCPCS: 99214

== ENCOUNTER → 2022-08-28 10:37 | Outpatient (BNVA) | payer MEDICARE, SELFPAY | PROVIDERS: PCP Family Medicine; Visit Provider Physician Assistant | DX: E66.9 Obesity, unspecified (principal); Z68.33 Body mass index [BMI] 33.0-33.9, adult; J98.4 Other disorders of lung | CPT/HCPCS: 99212 ==

== ENCOUNTER 2022-10-13 10:55 | Outpatient (AMB) | payer MEDICARE, SELFPAY ==
--- NOTE | 2022-10-13 11:12 | A.OFFVIS_ITS ---
Intake Vital Signs 10/13/22 11:14 Height 5 ft 7 in Weight 224 lb BMI 35.1 BP 110/60 Blood Pressure Location Lt brachial Position Sitting Pulse 76 Pulse Source Pulse Oximeter Pulse Oximetry (%) 96 Oxygen Delivery Method Room Air Intake Visit Reasons: COPD Intake Note: pt is here for follow up and states his breathing, and states a lot of coughing is coming from the stomach, air causes issues (particles in air). 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 He has had ongoing cough since the 2020, when he suffered from COVID infection. His the follow-up CT scan of the lungs has shown presence of, some interstitial lung disease with honeycombing especially in the upper lobes and basilar areas. His cough has been considered to be secondary to interstitial lung disease, and has been treated mainly with symptomatic control, such as codeine-guaifenesin syrup 1 or 2 tsp at night. He also has mild shortness of breath on exertion, denies any wheezing. Lately he has discovered that he has some silent GERD symptoms, and treating the GERD with omeprazole has diminished the amount of cough. Recent upper GI series did show some reflux. And he is on omeprazole 20 mg b.i.d. He is somewhat heavyset, does get short of breath on exertion and especially climbing stairs, Denies symptoms of obstructive sleep apnea. [facility] Medical History Anxiety Arthritis Bilateral hearing loss Cough Cough COVID-19 GERD (gastroesophageal reflux disease) Gout Hiatal hernia History of kidney stones Hyperlipidemia Hypothyroidism On beta gabe at home Restrictive lung disease Surgical History History of esophagogastroduodenoscopy (EGD) History of eye surgery History of nasal surgery History of rectal surgery Hx laparoscopic cholecystectomy Hx of colonoscopy Social History Alcohol intake: current Alcohol intake frequency: holidays/special occasions only Patient Tobacco Use Status: Never used Tobacco Second Hand Smoke Exposure: No Review of Systems Const All systems reviewed & are unremarkable except as noted in HPI and below Eyes Reports no additional complaints ENT Reports nasal congestion (Mild off and) and Reports nasal discharge (Off and on resulting in cough) Card Denies chest pain, Denies irregular heart rhythm and Denies leg edema Resp Reports as per HPI GI Denies abdominal pain and Denies heartburn Reports no additional complaints Musc Denies myalgias, Denies arthralgias and Denies joint swelling Skin/Breast Denies rash Neuro Denies seizure-like activity Psych Reports no additional complaints Endo Denies heat intolerance Steven/Lymph Denies easy bruising Aller/Immun Denies seasonal rhinorrhea Physical Exam Vital Signs: Last Vital Signs Pulse 76 10/13/22 11:14 BP 110/60 10/13/22 11:14 Pulse Ox 96 10/13/22 11:14 Oxygen Delivery Method Room Air 10/13/22 11:14 BMI result Body Mass Index 35.1 Const General: healthy appearing (Except for being overweight), comfortable, no acute distress, alert and awake Orientation/consciousness: patient oriented x3 HEENT Head: Yes normal to inspection General nose exam: No nasal polyps present and No nasal discharge present Face and sinus: Yes sinuses nontender Mouth: oropharynx normal Throat: Yes posterior oropharynx normal Eyes General: appearance normal, both eyes and all related structures Neck Neck: Yes normal visual inspection, Yes no lymphadenopathy, Yes trachea midline and Yes no JVD Thyroid: Thyroid normal Chest Chest palpation & inspection: normal inspection of the chest, normal palpation of entire chest wall and no tenderness Resp Other: Percussion note is resonant, breath sounds are decreased over the basilar areas. No wheezes but has a few inspiratory crepitations over the left base. Cardio Palpation: normal PMI Rate: regular rate Rhythm: regular rhythm Heart sounds: no gallops and no murmurs Peripheral pulses: Peripheral pulses 2+ throughout GI Palpation (GI): Soft to palpation, nontender, No hepatosplenomegaly present, no masses and Other GI palpation findings present (Abdomen is obese and protuberant) Auscultation: normal bowel sounds Back/Spine/Pelvis Thoracic/Lumbar Spine: thoracic and lumbar spine normal to inspection Skin General skin exam: no rashes or lesions noted Neuro General: patient oriented x3 and no focal motor deficits Cranial nerves: Yes CN's II-XII intact bilaterally Extrem General: Yes normal to inspection, Yes no clubbing, cyanosis or edema and Yes no calf tenderness Psych Appearance: grossly normal and well kempt Speech and movement: Normal speech and movement present Results Reviewed Results Reviewed: PULMONARY FUNCTION TEST ON 10/31/2021, HAD SHOWN MODERATE DEGREE OF RESTRICTIVE PULMONARY DISORDER, NO OBSTRUCTIVE DISORDER C/W INTERSTITIAL LUNG DISEASE/PULMONARY FIBROSIS Assessment & Plan Assessment & Plan (1) COVID-19: Comment: STATUS POST COVID INFECTION IN 2020, HAS HAD RESIDUAL INTERSTITIAL LUNG DISEASE SINCE THEN. Code(s): U07.1 - COVID-19 (2) Restrictive lung disease: Comment: PER PULMONARY FUNCTION TEST HE HAS MODERATELY SEVERE RESTRICTIVE. PULMONARY DISORDER THIS IS PARTLY DUE TO INTERSTITIAL LUNG DISEASE AND PARTLY DUE TO ABDOMINAL OBESITY. HE IS ADVISED TO DO DEEP BREATHING EXERCISES 3 TIMES A DAY. USE INCENTIVE SPIROMETRY DEVICE GIVEN FROM THE OFFICE. Code(s): J98.4 - Other disorders of lung (3) Pulmonary fibrosis: Comment: PATIENT HAS BILATERAL INTERSTITIAL LUNG DISEASE/PULMONARY FIBROSIS WITH HONEYCOMBING, IN UPPER LOBES WELL BASILAR AREAS, THIS MAY HAVE BEEN PRESENT EVEN BEFORE HE HAD COVID INFECTION, AND GOT SOMEWHAT WORSENED AFTER THE COVID INFECTION. HIS OXYGENATION HAS BEEN OKAY, Code(s): J84.10 - Pulmonary fibrosis, unspecified (4) Cough: Comment: HE HAS CHRONIC COUGH PRIMARILY RELATED TO PULMONARY FIBROSIS, ALSO MAY BE AGGRAVATED BY GERD. TX: ZYRTEC 10 MG ONCE A DAY P.R.N. CODEINE-GUAIFENESIN 10-100 SYRUP 2 TSP AT NIGHTTIME, AND P.R.N. DURING THE DAY. CONTINUE TREATMENT FOR GERD, Code(s): R05.9 - Cough, unspecified Coding Level of Care Code Est Pt Level 3 (68078) Diagnoses COVID-19 U07.1 Restrictive lung disease J98.4 Pulmonary fibrosis J84.10 Cough R05.9
[2022-10-13 11:14] VITALS: BP 110/60; PULSE 76; O2SAT 96; BMI 35.1
== END 2022-10-13 11:41 | disposition home or self-care (01) ==
PROVIDERS: PCP Family Medicine; Visit Provider Internal Medicine
DX: U07.1 COVID-19 (principal); J98.4 Other disorders of lung; J84.10 Pulmonary fibrosis, unspecified; R05.9 Cough, unspecified
CPT/HCPCS: 99213

== ENCOUNTER → 2022-10-13 10:55 | Outpatient (BNVA) | payer MEDICARE, SELFPAY | PROVIDERS: PCP Family Medicine; Visit Provider Internal Medicine | DX: J84.9 Interstitial pulmonary disease, unspecified (principal); J98.4 Other disorders of lung; J84.10 Pulmonary fibrosis, unspecified; R05.9 Cough, unspecified | CPT/HCPCS: 99212 ==

== ENCOUNTER → 2022-12-24 09:25 | Outpatient (BNVA) | payer SELFPAY | PROVIDERS: PCP Family Medicine; Visit Provider Internal Medicine | DX: Z02.79 Encounter for issue of other medical certificate (principal) ==

== ENCOUNTER 2023-01-14 09:37 | Outpatient (REF) | payer MEDICARE, SELFPAY ==
[2023-01-14 11:16] LABS: MANUAL DIFF FLAG NO
[2023-01-14 11:42] LABS: Basophils Percent Auto 0.3 % (0-2); Eosinophils Absolute Auto 0.2 X10*3/uL (0.0-0.4); Eosinophils Percent Auto 2.9 % (0-4); Hematocrit 47.6 % (42.0-52.0); Imm Gran Abs Auto 0.03 X10*3/uL (0.00-0.03); Imm Gran Pct Auto 0.4 % (0.0-0.4); Lymphocytes Absolute Auto 1.5 X10*3/uL (1.2-4.9); Lymphocytes Percent Auto 21.8 % (20-40); Mean Corpuscular HGB Conc 33.6 g/dl (31.0-36.0); Mean Corpuscular Hemoglobin 32.7 pg (27.0-33.0); Mean Corpuscular Volume 97.3 fL (80.0-98.0); Mean Platelet Volume 10.9 fL (9.4-12.4); Monocytes Absolute Auto 0.8 X10*3/uL (0.1-1.2); Monocytes Percent Auto 11.6 % (2-11); Neutrophils Absolute Auto 4.4 x10*3/uL (2.0-8.3); Platelet Count 271 X10*3/uL (160-400); Red Blood Count 4.89 X10*6/uL (4.60-5.80); Red Cell Distribution Width 12.9 % (11.0-16.0)
[2023-01-14 12:13] LABS: Alanine Aminotransferase 46 U/L (0-40); Anion Gap 11 (12-20); Aspartate Amino Transferase 32 U/L (5-37); Blood Urea Nitrogen 26 mg/dL (9-16); Carbon Dioxide 29 mmol/L (22-29); Chloride 101 mmol/L (96-108); Estimated Glomerular Filt Rate > 60; Potassium 4.1 mmol/L (3.3-5.1); Sodium 137 mmol/L (135-145)
[2023-01-14 12:35] LABS: Free T4 (Free Thyroxine) 0.98 ng/dL (0.71-1.85)
[2023-01-14 13:07] LABS: Appearance Urine Clear; Color Urine Yellow; Glucose Urine UA Negative (Negative); Leukocyte Esterase Urine Negative (Negative); Nitrite Urine Negative (Negative); PH 5.5 (5.0-9.0); Urine Blood Negative (Negative); Urine Ketones Negative (Negative); Urine Protein Trace mg/dL (Neg-Trace)
== END 2023-01-14 09:38 | disposition home or self-care (01) ==
LOC: HO.HMGCLDS 09:37
PROVIDERS: PCP Family Medicine; Visit Provider Family Medicine
DX: E03.9 Hypothyroidism, unspecified (principal); R06.02 Shortness of breath; E78.00 Pure hypercholesterolemia, unspecified; Z79.899 Other long term (current) drug therapy; R80.9 Proteinuria, unspecified
CPT/HCPCS: 36415; 80051; 81003; 82550; 82565; 84439; 84450; 84460; 84520; 85025

== ENCOUNTER 2023-04-09 07:38 | Outpatient (REF) | payer MEDICARE, SELFPAY ==
[2023-04-09 11:18] LABS: MANUAL DIFF FLAG NO
[2023-04-09 11:37] LABS: Basophils Percent Auto 0.5 % (0-2); Eosinophils Absolute Auto 0.2 X10*3/uL (0.0-0.4); Eosinophils Percent Auto 3.2 % (0-4); Hematocrit 49.3 % (42.0-52.0); Hemoglobin 16.3 g/dl (14.0-18.0); Imm Gran Abs Auto 0.04 X10*3/uL (0.00-0.03); Imm Gran Pct Auto 0.6 % (0.0-0.4); Lymphocytes Absolute Auto 1.5 X10*3/uL (1.2-4.9); Lymphocytes Percent Auto 23.7 % (20-40); Mean Corpuscular HGB Conc 33.1 g/dl (31.0-36.0); Mean Corpuscular Hemoglobin 32.7 pg (27.0-33.0); Mean Platelet Volume 10.6 fL (9.4-12.4); Monocytes Absolute Auto 0.8 X10*3/uL (0.1-1.2); Monocytes Percent Auto 12.2 % (2-11); Neutrophils Absolute Auto 3.7 x10*3/uL (2.0-8.3); Neutrophils Percent Auto 59.8 % (45-73); Platelet Count 273 X10*3/uL (160-400); Red Blood Count 4.98 X10*6/uL (4.60-5.80); White Blood Count 6.3 X10*3/uL (4.8-10.8)
[2023-04-09 11:40] LABS: Estimated Average Glucose 111 mg/dL; Hemoglobin A1C 151.2543 umol/L; Hemoglobin A1c % 5.5 % (<6.0)
[2023-04-09 11:52] LABS: Cholesterol 223 mg/dL (<200); Glucose Fasting 97 mg/dL (60-99); HDL Cholesterol 40 mg/dL (>40); LDL Cholesterol Calculated 120 mg/dL (<100); Triglycerides 316 mg/dL (<150)
[2023-04-09 12:10] LABS: Free T4 (Free Thyroxine) 0.77 ng/dL (0.71-1.85)
[2023-04-09 12:16] LABS: Creatinine Urine 108.06 mg/dL; Microalbum/Creatinine Ratio Ur 183.2 ug/mg cr (<30)
== END 2023-04-09 07:39 | disposition home or self-care (01) ==
LOC: HO.HMGCLDS 07:38
PROVIDERS: PCP Family Medicine; Visit Provider Family Medicine
DX: R06.02 Shortness of breath (principal); R80.9 Proteinuria, unspecified; I95.9 Hypotension, unspecified; Z79.899 Other long term (current) drug therapy
CPT/HCPCS: 36415; 80061; 82043; 82570; 82947; 83036; 84439; 85025

== ENCOUNTER 2023-04-20 10:14 | Outpatient (AMB) | payer MEDICARE, SELFPAY ==
[2023-04-20 10:23] VITALS: BP 110/68; PULSE 88; RESP 18; O2SAT 96; BMI 34.9
--- NOTE | 2023-04-20 10:23 | MHC.OFFVIS ---
Intake Vital Signs 04/20/23 10:23 Height 5 ft 7 in Weight 223 lb 2 oz BMI 34.9 BP 110/68 Blood Pressure Location Lt brachial Position Sitting Respiration 18 Pulse 88 Pulse Source Pulse Oximeter Pulse Oximetry (%) 96 Oxygen Delivery Method Room Air Intake Visit Reasons: COPD Allergies niacin [NIACIN] Allergy (Intermediate, Verified 04/20/23 10:30) RASH, strange sensation/overheats Medication List - Last Reconciled 04/20/23 by Yasir Womack MD allopurinol 1 tab PO DAILY cetirizine (Allergy Relief (cetirizine)) 10 mg PO DAILY codeine-guaifenesin 10-100 mg/5 mL 10 mL PO Q4-6H PRN 30 days gemfibrozil 1 tab PO DAILY levothyroxine 1 tab PO DAILY metoprolol succinate ER 1 tab PO DAILY omeprazole 20 mg PO BID PRN Do you need a note to return to daycare/school/sports/work: No HPI COPD HPI Details Jermaine is 73 years old very pleasant gentleman, moderately obese with a round face. He has ongoing cough problems since 2020 when he suffered from COVID infection. Previous CT scan has shown chronic pulmonary fibrosis especially in the basilar areas as well as in the apices. Pulmonary function test has shown restrictive pulmonary disorder. Is main symptom is ongoing cough. His came with him and she is more disturbed by his cough especially at night. He wakes up a few times due to episodes of cough. During the daytime any physical exertion results in increased cough. He is using cough drops all the times.. He has only mild shortness of breath on exertion. [facility] Medical History Restrictive lung disease COVID-19 Cough Cough Hiatal hernia Anxiety On beta gabe at home History of kidney stones Arthritis Gout Hyperlipidemia Hypothyroidism Bilateral hearing loss GERD (gastroesophageal reflux disease) Surgical History Hx of colonoscopy History of nasal surgery History of eye surgery History of rectal surgery Hx laparoscopic cholecystectomy History of esophagogastroduodenoscopy (EGD) Social History Alcohol intake: current Alcohol intake frequency: holidays/special occasions only Patient Tobacco Use Status: Never used Tobacco Second Hand Smoke Exposure: No Review of Systems Const All systems reviewed & are unremarkable except as noted in HPI and below Eyes Reports no additional complaints ENT Reports nasal congestion (Mild off and) and Reports nasal discharge (Off and on resulting in cough) Card Denies chest pain, Denies irregular heart rhythm and Denies leg edema Resp Reports as per HPI GI Denies abdominal pain and Denies heartburn Reports no additional complaints Musc Denies myalgias, Denies arthralgias and Denies joint swelling Skin/Breast Denies rash Neuro Denies seizure-like activity Psych Reports no additional complaints Endo Denies heat intolerance Steven/Lymph Denies easy bruising Aller/Immun Denies seasonal rhinorrhea Physical Exam Vital Signs: Last Vital Signs Pulse 88 04/20/23 10:23 Resp 18 04/20/23 10:23 BP 110/68 04/20/23 10:23 Pulse Ox 96 04/20/23 10:23 Oxygen Delivery Method Room Air 04/20/23 10:23 BMI result Body Mass Index 34.9 Const General: healthy appearing (Except for being overweight), comfortable, no acute distress, alert and awake Orientation/consciousness: patient oriented x3 HEENT Head: Yes normal to inspection General nose exam: No nasal polyps present and No nasal discharge present Face and sinus: Yes sinuses nontender Mouth: oropharynx normal Throat: Yes posterior oropharynx normal Eyes General: appearance normal, both eyes and all related structures Neck Neck: Yes normal visual inspection, Yes no lymphadenopathy, Yes trachea midline and Yes no JVD Thyroid: Thyroid normal Chest Chest palpation & inspection: normal inspection of the chest, normal palpation of entire chest wall and no tenderness Resp Other: Percussion note is resonant, breath sounds are decreased over the basilar areas. No wheezes . But has a few inspiratory crepitations over the basilar areas especially on left base. Cardio Palpation: normal PMI Rate: regular rate Rhythm: regular rhythm Heart sounds: no gallops and no murmurs Peripheral pulses: Peripheral pulses 2+ throughout GI Palpation (GI): Soft to palpation, nontender, No hepatosplenomegaly present, no masses and Other GI palpation findings present (Abdomen is obese and protuberant) Auscultation: normal bowel sounds Back/Spine/Pelvis Thoracic/Lumbar Spine: thoracic and lumbar spine normal to inspection Skin General skin exam: no rashes or lesions noted Neuro General: patient oriented x3 and no focal motor deficits Cranial nerves: Yes CN's II-XII intact bilaterally Extrem General: Yes normal to inspection, Yes no clubbing, cyanosis or edema and Yes no calf tenderness Psych Appearance: grossly normal and well kempt Speech and movement: Normal speech and movement present Assessment & Plan Assessment & Plan (1) COVID-19: Comment: STATUS POST COVID INFECTION IN 2020, HAS HAD RESIDUAL INTERSTITIAL LUNG DISEASE / PUMONARY FIBROSIS. Code(s): U07.1 - COVID-19 Plan: SEE UNDER PULMONBARY FIBROSIS (2) Pulmonary fibrosis: Comment: PATIENT HAS BILATERAL INTERSTITIAL LUNG DISEASE/PULMONARY FIBROSIS WITH HONEYCOMBING, IN UPPER LOBES WELL BASILAR AREAS, THIS MAY BE AFTER COVID INFECTION OR HE MAY HAVE HAD SOME DEGREE OF FIBROSIS EVEN BEFORE. MAIN COMPLAINT IS COUGH . HIS OXYGENATION HAS BEEN OKAY, Code(s): J84.10 - Pulmonary fibrosis, unspecified Plan: FOR COUGH CONTROL ; CODEIN-GUAIFENN. 10-100 1-2 TSF PO Q 6 HRS PRN ALSO MAY USE ALBUTEROL HFA PRN (3) Dyspnea on exertion: Comment: It is mild and consistent with obesity as well as minimal pulmonary fibrosis, Encouraged to do deep breathing exercises and must try to lose some weight. Code(s): R06.00 - Dyspnea, unspecified Plan: EXPLAINED TO PATIENT (4) Cough: Comment: HE HAS CHRONIC COUGH PRIMARILY RELATED TO PULMONARY FIBROSIS, ALSO MAY BE AGGRAVATED BY GERD. Code(s): R05.9 - Cough, unspecified Plan: TX: ZYRTEC 10 MG ONCE A DAY P.R.N. CODEINE-GUAIFENESIN 10-100 SYRUP 2 TSP AT NIGHTTIME, AND P.R.N. DURING THE DAY. CONTINUE TREATMENT FOR GERD, (5) Restrictive lung disease: Comment: PER PULMONARY FUNCTION TEST HE HAS MODERATELY SEVERE RESTRICTIVE PULMONARY DISORDER . THIS IS PARTLY DUE TO INTERSTITIAL LUNG DISEASE AND PARTLY DUE TO ABDOMINAL OBESITY. HE IS ADVISED TO DO DEEP BREATHING EXERCISES 3 TIMES A DAY. Code(s): J98.4 - Other disorders of lung Plan: ABOVE Coding Level of Care Code Est Pt Level 4 (91293) Diagnoses COVID-19 U07.1 Pulmonary fibrosis J84.10 Dyspnea on exertion R06.00 Cough R05.9 Restrictive lung disease J98.4
== END 2023-04-20 10:51 | disposition home or self-care (01) ==
PROVIDERS: PCP Family Medicine; Visit Provider Internal Medicine
DX: U07.1 COVID-19 (principal); J84.10 Pulmonary fibrosis, unspecified; R06.00 Dyspnea, unspecified; R05.9 Cough, unspecified; J98.4 Other disorders of lung
CPT/HCPCS: 99214

== ENCOUNTER → 2023-04-20 10:14 | Outpatient (BNVA) | payer MEDICARE, SELFPAY | PROVIDERS: PCP Family Medicine; Visit Provider Internal Medicine | DX: J84.10 Pulmonary fibrosis, unspecified (principal); J98.4 Other disorders of lung; U09.9 Post COVID-19 condition, unspecified; R06.00 Dyspnea, unspecified; R05.9 Cough, unspecified | CPT/HCPCS: 99212 ==

== ENCOUNTER → 2023-07-29 08:44 | Outpatient (BNVA) | payer SELFPAY | PROVIDERS: PCP Family Medicine; Visit Provider Internal Medicine | DX: Z02.79 Encounter for issue of other medical certificate (principal) ==

== ENCOUNTER 2023-07-31 07:30 | Outpatient (REF) | payer OTHER, SELFPAY ==
[2023-07-31 14:41] LABS: Creatinine, mg/dL 104.81; Protein mg/dL 26 mg/dL
[2023-07-31 16:07] LABS: Creatinine, 24Hr Urine 1.1 G/Day (1.0-2.0); Protein 24 Hr Urine 267 mg/Day (<150); Total Volume 24 Hour Urine 1025 mL
== END 2023-07-31 10:24 | disposition home or self-care (01) ==
LOC: HO.HMGCLDS 07:30
PROVIDERS: PCP Family Medicine; Visit Provider Family Medicine
DX: R80.9 Proteinuria, unspecified (principal)
CPT/HCPCS: 84156

== ENCOUNTER 2023-09-14 10:42 | Outpatient (REF) | payer MEDICARE, SELFPAY ==
[2023-09-14 13:29] LABS: MANUAL DIFF FLAG NO
[2023-09-14 13:47] LABS: Basophils Percent Auto 0.7 % (0-2); Eosinophils Absolute Auto 0.2 X10*3/uL (0.0-0.4); Eosinophils Percent Auto 3.4 % (0-4); Hematocrit 46.3 % (42.0-52.0); Hemoglobin 15.6 g/dl (14.0-18.0); Imm Gran Abs Auto 0.03 X10*3/uL (0.00-0.03); Imm Gran Pct Auto 0.5 % (0.0-0.4); Lymphocytes Absolute Auto 1.5 X10*3/uL (1.2-4.9); Lymphocytes Percent Auto 25.6 % (20-40); Mean Corpuscular HGB Conc 33.7 g/dl (31.0-36.0); Mean Corpuscular Hemoglobin 33.1 pg (27.0-33.0); Mean Corpuscular Volume 98.1 fL (80.0-98.0); Mean Platelet Volume 10.6 fL (9.4-12.4); Monocytes Absolute Auto 0.8 X10*3/uL (0.1-1.2); Monocytes Percent Auto 14.2 % (2-11); Neutrophils Absolute Auto 3.2 x10*3/uL (2.0-8.3); Neutrophils Percent Auto 55.6 % (45-73); Platelet Count 268 X10*3/uL (160-400); Red Blood Count 4.72 X10*6/uL (4.60-5.80); Red Cell Distribution Width 13.1 % (11.0-16.0); White Blood Count 5.8 X10*3/uL (4.8-10.8)
[2023-09-14 14:11] LABS: Creatinine Urine 101.06 mg/dL; Microalbum/Creatinine Ratio Ur 148.4 ug/mg cr (<30)
[2023-09-14 14:14] LABS: Anion Gap 10 (12-20); Blood Urea Nitrogen 31 mg/dL (9-16); Carbon Dioxide 27 mmol/L (22-29); Chloride 105 mmol/L (96-108); Estimated Glomerular Filt Rate 57; Potassium 4.4 mmol/L (3.3-5.1); Sodium 138 mmol/L (135-145)
[2023-09-14 14:35] LABS: Free T4 (Free Thyroxine) 1.04 ng/dL (0.71-1.85); Thyroid Stimulating Hormone 0.23 uIU/mL (0.32-4.0)
== END 2023-09-14 10:43 | disposition home or self-care (01) ==
LOC: HO.HMGCLDS 10:42
PROVIDERS: PCP Family Medicine; Visit Provider Family Medicine
DX: E03.9 Hypothyroidism, unspecified (principal); R80.9 Proteinuria, unspecified; R06.02 Shortness of breath
CPT/HCPCS: 36415; 80051; 82043; 82565; 82570; 84439; 84443; 84520; 85025

== ENCOUNTER 2023-10-26 10:26 | Outpatient (AMB) | payer MEDICARE, SELFPAY ==
[2023-10-26 10:37] VITALS: BP 130/78; PULSE 83; O2SAT 97; BMI 35.1
--- NOTE | 2023-10-26 10:37 | MHC.OFFVIS ---
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 Allergies niacin [NIACIN] Allergy (Intermediate, Verified 10/26/23 13:27) RASH, strange sensation/overheats Medication List - Last Reconciled 10/26/23 by Yasir Womack MD albuterol sulfate 90 mcg/actuation 2 puffs inhalation Q4-6H PRN allopurinol 1 tab PO DAILY cetirizine (Allergy Relief (cetirizine)) 10 mg PO DAILY codeine-guaifenesin 10-100 mg/5 mL 10 mL PO Q4-6H PRN 30 days gemfibrozil 1 tab PO DAILY levothyroxine 1 tab PO DAILY metoprolol succinate ER 1 tab PO DAILY omeprazole 20 mg PO BID PRN Do you need a note to return to daycare/school/sports/work: No HPI HPI COPD: Details: THIS 73 YEARS OLD GENTLEMAN IS HERE FOR FOLLOW-UP AFTER 6 MONTHS. KNOWN TO HAVE INTERSTITIAL LUNG DISEASE/SOME FIBROTIC CHANGES IN BOTH LUNGS. THE MOST LIKELY CAUSE OF HIS PULMONARY FIBROSIS IS COVID INFECTION ABOUT 2 YEARS AGO. BUT HE HAD SOME ONGOING COUGH EVEN BEFORE THAT. ACCORDING TO HIS HE DOES HAVE ONGOING NASAL ALLERGIES, HE HAS INTERMITTENT GERD SYMPTOMS, AND THEY MAY BE AGGRAVATING HIS COUGH. HE HAS BEEN USING GUAIFENESIN-CODEINE SYRUP ESPECIALLY AT NIGHT TO SUPPRESS HIS COUGH. EVEN THEN HIS COUGH IS NOT FULLY CONTROLLED, AND HE WAKES UP FREQUENTLY. 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 HE CONTROLS HIS COUGH MOSTLY WITH COUGH DROPS WHICH DO HELP. [facility] Medical History Restrictive lung disease COVID-19 Cough Cough Hiatal hernia Anxiety On beta gabe at home History of kidney stones Arthritis Gout Hyperlipidemia Hypothyroidism Bilateral hearing loss GERD (gastroesophageal reflux disease) Surgical History Hx of colonoscopy History of nasal surgery History of eye surgery History of rectal surgery Hx laparoscopic cholecystectomy History of esophagogastroduodenoscopy (EGD) Social History Alcohol intake: current Alcohol intake frequency: holidays/special occasions only Patient Tobacco Use Status: Never used Tobacco Second Hand Smoke Exposure: No Review of Systems Const All systems reviewed & are unremarkable except as noted in HPI and below Eyes Reports no additional complaints ENT Reports nasal congestion (Mild off and) and Reports nasal discharge (Off and on resulting in cough) Card Denies chest pain, Denies irregular heart rhythm and Denies leg edema Resp Reports as per HPI GI Denies abdominal pain and Denies heartburn Reports no additional complaints Musc Denies myalgias, Denies arthralgias and Denies joint swelling Skin/Breast Denies rash Neuro Denies seizure-like activity Psych Reports no additional complaints Endo Denies heat intolerance Steven/Lymph Denies easy bruising Aller/Immun Denies seasonal rhinorrhea Physical Exam Vital Signs: Last Vital Signs Pulse 83 10/26/23 10:37 BP 130/78 10/26/23 10:37 Pulse Ox 97 10/26/23 10:37 Oxygen Delivery Method Room Air 10/26/23 10:37 BMI result Body Mass Index 35.1 Const General: healthy appearing (Except for being overweight), comfortable, no acute distress, alert and awake Orientation/consciousness: patient oriented x3 HEENT Head: Yes normal to inspection General nose exam: No nasal polyps present and No nasal discharge present Face and sinus: Yes sinuses nontender Mouth: oropharynx normal Throat: Yes posterior oropharynx normal Eyes General: appearance normal, both eyes and all related structures Neck Neck: Yes normal visual inspection, Yes no lymphadenopathy, Yes trachea midline and Yes no JVD Thyroid: Thyroid normal Chest Chest palpation & inspection: normal inspection of the chest, normal palpation of entire chest wall and no tenderness Resp Other: Percussion note is resonant, breath sounds are decreased over the basilar areas. No wheezes . But has a few inspiratory crepitations over the basilar areas especially on left base. Cardio Palpation: normal PMI Rate: regular rate Rhythm: regular rhythm Heart sounds: no gallops and no murmurs Peripheral pulses: Peripheral pulses 2+ throughout GI Palpation (GI): Soft to palpation, nontender, No hepatosplenomegaly present, no masses and Other GI palpation findings present (Abdomen is obese and protuberant) Auscultation: normal bowel sounds Back/Spine/Pelvis Thoracic/Lumbar Spine: thoracic and lumbar spine normal to inspection Skin General skin exam: no rashes or lesions noted Neuro General: patient oriented x3 and no focal motor deficits Cranial nerves: Yes CN's II-XII intact bilaterally Extrem General: Yes normal to inspection, Yes no clubbing, cyanosis or edema and Yes no calf tenderness Psych Appearance: grossly normal and well kempt Speech and movement: Normal speech and movement present Assessment & Plan Assessment & Plan (1) Cough: Comment: HE HAS CHRONIC COUGH PRIMARILY RELATED TO PULMONARY FIBROSIS, ALSO MAY BE AGGRAVATED BY GERD. Code(s): R05.9 - Cough, unspecified Category: Medical Plan: DURING THE DAYTIME ROBITUSSIN 2 TSP T.I.D. ARE USE COUGH DROPS NEEDED. AT NIGHTTIME GUAIFENESIN-CODEINE 100-10 MG 2 TSP BEFORE GOING TO BED. (2) Pulmonary fibrosis: Comment: PATIENT HAS BILATERAL INTERSTITIAL LUNG DISEASE/PULMONARY FIBROSIS WITH HONEYCOMBING, IN UPPER LOBES WELL BASILAR AREAS, THIS MAY BE AFTER COVID INFECTION OR HE MAY HAVE HAD SOME DEGREE OF FIBROSIS EVEN BEFORE. MAIN COMPLAINT IS COUGH . HIS OXYGENATION HAS BEEN OKAY, Code(s): J84.10 - Pulmonary fibrosis, unspecified Category: Medical Plan: FOR COUGH CONTROL WILL CONTINUE TO PRESCRIBE GUAIFENESIN-CODEINE SYRUP AND ADVISED TO USE 2 TSP AT NIGHTTIME. DURING THE DAYTIME MAY USE OTC COUGH SYRUP SUCH ROBITUSSIN 2 TSP T.I.D.. ALSO USE COUGH DROPS NEEDED. CT SCAN OF THE CHEST ORDERED FOR FOLLOW-UP. (3) COVID-19: Comment: STATUS POST COVID INFECTION IN 2020, HAS HAD RESIDUAL INTERSTITIAL LUNG DISEASE / PUMONARY FIBROSIS. Code(s): U07.1 - COVID-19 Category: Medical Plan: NO ACTIVE TREATMENT NEEDED (4) Restrictive lung disease: Comment: PER PULMONARY FUNCTION TEST HE HAS MODERATELY SEVERE RESTRICTIVE PULMONARY DISORDER . THIS IS PARTLY DUE TO INTERSTITIAL LUNG DISEASE AND PARTLY DUE TO ABDOMINAL OBESITY. Code(s): J98.4 - Other disorders of lung Category: Medical Plan: HE IS ADVISED TO DO DEEP BREATHING EXERCISES 3 TIMES A DAY. (5) Obesity: Comment: HE REMAINS MODERATELY OBESE, WITH A ROUND FACE PHYSICAL FEATURES ARE SUGGESTIVE OF OBSTRUCTIVE SLEEP APNEA. Code(s): E66.9 - Obesity, unspecified Category: Medical Plan: DISCUSSED WITH HIM AND HE DENIES ANY ACTIVE SYMPTOMS. TALKED ABOUT SCREENING WITH SLEEP STUDY BUT HE AND HIS BOTH DO NOT WANT THE STUDY AT THIS TIME I TOLD HIM THAT STILL IT WILL BE BENEFICIAL IF HE CAN NOT LOSE ABOUT 10 LB OF WEIGHT. Orders: Orders CT chest wo IV con Today J84.10 - Pulmonary fibrosis, unspecified, J98.4 - Other disorders of lung, R05.9 - Cough, unspecified, R06.00 - Dyspnea, unspecified Coding Level of Care Code Est Pt Level 3 (44851) Diagnoses Cough R05.9 Pulmonary fibrosis J84.10 COVID-19 U07.1 Restrictive lung disease J98.4 Obesity E66.9
== END 2023-10-26 11:17 | disposition home or self-care (01) ==
PROVIDERS: PCP Family Medicine; Visit Provider Internal Medicine
DX: R05.9 Cough, unspecified (principal); J84.10 Pulmonary fibrosis, unspecified; U07.1 COVID-19; J98.4 Other disorders of lung; E66.9 Obesity, unspecified
CPT/HCPCS: 99213

== ENCOUNTER → 2023-10-26 10:26 | Outpatient (BNVA) | payer MEDICARE, SELFPAY | PROVIDERS: PCP Family Medicine; Visit Provider Internal Medicine | DX: J98.4 Other disorders of lung (principal); J84.10 Pulmonary fibrosis, unspecified; R05.9 Cough, unspecified; E66.9 Obesity, unspecified; U09.9 Post COVID-19 condition, unspecified; Z68.35 Body mass index [BMI] 35.0-35.9, adult | CPT/HCPCS: 99212 ==

== ENCOUNTER 2023-12-10 09:37 | Outpatient (REF) | payer MEDICARE, SELFPAY ==
--- NOTE | ~2023-12-10 | CT_ITS ---
EXAMINATION: CT CHEST WITHOUT CONTRAST CLINICAL INFORMATION: Increasing cough, interstitial lung disease. COMPARISON: 09/30/2021. TECHNIQUE: Multidetector volumetric CT imaging of the chest was done. Axial MIP volume rendering provided. Sagittal and coronal reformatted images were obtained. This CT examination was performed using dose optimization techniques as appropriate, variously including the following: *Automated exposure control *Adjustment of mA and/or kV according to patient size (this includes techniques or standardized protocols for targeted exams where dose is matched to indication/reason for exam; i.e. extremities or head) *Use of iterative reconstruction technique DLP: 238 mGy-cm FINDINGS: LUNGS: -Redemonstration of somewhat diffuse interstitial thickening, subpleural single layer honeycombing in the right upper lobe laterally and lingular distribution, with superimposed scattered subpleural groundglass opacities, and mild smooth interlobular septal thickening in the apices right greater than left, there is mild traction bronchiectasis, and there is no obvious apical versus basal gradient although the most superior apices appear to be spared. -No definite peribronchovascular interstitial thickening. -Findings in the lungs consistent with pulmonary fibrosis, either NSIP or UIP pattern. -Compared with 09/30/2021, there appears to be a moderate increase in the overall degree of interstitial thickening, and subpleural groundglass opacities especially notable in the right middle lobe, lingula, and bilateral lower lobes. MEDIASTINUM: -Normal thyroid. - Prominent main pulmonary artery measuring 3.8 cm. Findings could indicate developing pulmonary hypertension. -No adenopathy present or mass. -Normal heart size. No pericardial effusion. There is a small type I hiatus hernia. CORONARY ARTERY CALCIFICATION: Mild to moderate LAD calcification. PLEURA: There is no pleural effusion. No pleural mass or thickening. AXILLA/CHEST WALL: -No Masses or Lymphadenopathy. UPPER ABDOMEN: Mild diffuse fatty infiltration of the liver. No focal liver lesion. -Small type I hiatus hernia. -Remainder of the imaged upper abdominal contents demonstrate a prior cholecystectomy. OSSEOUS STRUCTURES: -No suspicious lytic or blastic bone lesion. -Mild dextroconvex scoliosis of the spine with associated degenerative changes. CT/CT chest wo IV con IMPRESSION: 1. Moderately worsening diffuse pulmonary fibrosis with UIP versus NSIP type pattern. Areas of superimposed groundglass attenuation likely reflect ongoing lung injury. 2. Within confines, no acute superimposed pulmonary disease or suspicious nodules. 3. No pleural or pericardial effusion. 4. Fatty infiltration of the liver. Electronically signed by: Kumar Ojeda MD 02/02/2024 02:05 PM LACIE BLACK
== END 2023-12-10 09:38 | disposition home or self-care (01) ==
LOC: HO.CT 09:37
PROVIDERS: PCP Family Medicine; Visit Provider Internal Medicine
DX: J84.10 Pulmonary fibrosis, unspecified (principal); R06.00 Dyspnea, unspecified; R05.9 Cough, unspecified; J98.4 Other disorders of lung
CPT/HCPCS: 71250

== ENCOUNTER → 2023-12-10 09:43 | Outpatient (BNV) | payer MEDICARE, SELFPAY | PROVIDERS: PCP Family Medicine; Visit Provider Radiology Diagnostic Radiology | DX: J84.10 Pulmonary fibrosis, unspecified (principal) | CPT/HCPCS: 71250 ==

== ENCOUNTER → 2024-01-27 09:28 | Outpatient (BNVA) | payer SELFPAY | PROVIDERS: PCP Family Medicine; Visit Provider Internal Medicine | DX: Z02.79 Encounter for issue of other medical certificate (principal) ==

== ENCOUNTER 2024-04-08 08:23 | Outpatient (REF) | payer MEDICARE, SELFPAY ==
--- OUTSIDE RECORDS SUMMARY | 2024-04-08 08:38 | XMS_ITS | Patient Health Record ---
Author Organization [facility] Address [address] [place] [address] Care Team Providers Care Medical Transcription Editor Name Role Phone Pedro COLEMAN, Ricrado Primary Care Provider Mohit Alston [phone] ALLERGIES Allergen (clinical drug ingredient) Drug/Non Drug Allergy documented on EMR Reaction Allergy Type Onset Date Status Niacin Unknown Drug Allergy Active REASON FOR REFERRAL No Information MEDICATIONS Medication SIG (Take, Route, Frequency, Duration) Notes Start Date End Date Status Fluocinonide 0.05 % External for 30 Active Albuterol Sulfate HFA 108 (90 Base) MCG/ACT Inhalation for 30 Activ e guaiFENesin-Codeine 100-10 MG/5ML TAKE 10 ML ORALLY EVERY 4 TO 6 HOURS NEEDED FOR PERSISTANT COUGH FOR 30 DAYS Oral for 30 Active Metoprolol Succinate 25 MG 1 capsule Ora lly Once a day Active Allopurinol 300 MG 1 tablet Orally Once a day Active Gemfibrozil 600 MG as directed Orally o nce a day Active Levothyroxine Sodium 150 MCG 1 tablet in the morning on an empty stomach Orally Once a day Active ZyrTEC Allergy 10 MG 1 tablet Orally Onc e a day for 30 day(s) Active Omeprazole 40 MG 1 Orally Twice a day before breakfast and before the evening meal for 90 days 01/27/2023 Active Famotidine 40 MG 1 tablet Orally Once a day Unknown IMMUNIZATIONS Vaccine Route Administration Date Status Comme nts Influenza Unknown 10/17/2020 Administered Influenza Unknown 08/02/2019 Refused SOCIAL HISTORY Sex Assigned At : Social History Observation Description Sex Assigned At Unknown PROBLEMS Problem Type ICD Code Onset Dates Problem Status W/U Status Risk SNOMED Code Notes Problem Abnormal barium swallow (R93.3) Active confirmed 681573707 Problem Esophagitis (K20.9) Active confirmed 16 134077 Problem Hiatal hernia (K44.9) Active confirmed 37983655 Problem Gastroesophageal reflux disease with esophagitis (K21.0) Active confirmed 995852395 Problem Encounter for screening for malignant neoplasm of colon (Z12.11) Active confirmed 516925288 Problem Diverticulosis of colon (K57.30) Active confirmed Diverticulosi s of colon (682920802) Problem Gastric polyp (K31.7) Active confirmed Gastric polyp (11695393) Problem Gastroesophageal reflux (K21.9) Active confirmed Esophageal reflux finding (635285677) Problem Gastroesophageal reflux disease without esophagitis (K21.9) Active confirmed 245986550 Problem Cough, unspecified type (R05.9) Active confirmed 11259747 VITAL SIGNS Blood pressure diastolic 00 mm Hg 07/30/2023 Height 67 in 07/30/2023 Blood pressure systolic 00 mm Hg 07/30/2023 Weight 220 lbs 07/30/2023 BMI 34.45 kg/m2 07/30/2023 Encounters Encounter Location Date Provider Diagnosis [facility] [address] [place] [address] 07/30/2023 Mohit Vasquez Gastroesophageal ref lux K21.9 ; Hiatal hernia K44.9 and Cough, unspecified type R05.9 ASSESSMENTS Encounter Date Diagnosis Assessment Notes Treatment Notes Treatment Clinical Notes 07/30/2023 Hiatal hernia (ICD-1 0 - K44.9) 07/30/2023 Gastroesophageal ref lux (ICD-10 - K21.9) Decrease the omeprazole to 20mg twice a day. Continue to eat small meals, try to lose weight, don't eat for 3-4 hours before bedtime. 07/30/2023 Cough, unspecified t ype (ICD-10 - R05.9) PLAN OF TREATMENT Future Test Test Name Order Date UPPER GI ENDOSCOPY 05/15/2015 COLONOSCOPY 08/02/2019 UPPER GI ENDOSCOPY 11/15/2020 COLONOSCOPY 11/15/2020 Insurance Providers Payer Name Payer Address Payer Phone Subscriber Number Group Number Insured Name Patient Relationship to Insured Coverage Start Date Coverage End Date [facility] [address] [facility] [place] [phone] [id number] GROVER GRANT Self - patient is the insured MEDICAL (GENERAL) HISTORY Medical History History ICD Code GERD--EGD 08/2009--moderate s ized HH, no esophagitis--positive 24 hour pH study off PPI's Colonoscopy 08/2009-neg except for an inf lammatory polyp Denies GA,DM,CVA,Lung disease,renal dise ase Bilateral hearing aids Hypothyroidism Hyperlipidemia Arthrtitis Gout EGD in 07/2015--small to mode rate-size HH, erosive esophagitis--biopsies were negative for Ramirez's esophagus--was started on Omeprazole, but stopped due to hot flashes --put on Famotidine. However, restarted omeprazole at some point and doing well on that Kidney stone over 20 years Interstitial lung disease-Dr. Shanta LOZOYA---coughing Upper endoscopy in December of 2020 revealed his known small to moderate-sized hiatal hernia, benign gastric polyps with biopsies negative for H. pylori, and no evidence of esophagitis nor Ramirez's esophagus Colonoscopy in December of 2020 was nega tive for any polyps Surgical History Surgery Date(Month/Year) Laparoscopic cholecystectomy Broken right femur Anal fistula - Dr. Rodriguez 2018 in fall metal fragments in eyes
--- OUTSIDE RECORDS SUMMARY | 2024-04-08 08:38 | XMS_ITS ---
Author Organization [facility] Address [address] [place] [address] Care Team Providers Care Group Program Manager Name Role Phone Ricardo Vasquez MD Primary Care Provider UnavailMohit Yuan [phone] ALLERGIES Allergen (clinical drug ingredient) Drug/Non Drug Allergy documented on EMR Reaction Allergy Type Onset Date Status Niacin Unknown Drug Allergy Active REASON FOR VISIT Patient presents today for gerd MEDICATIONS Medication SIG (Take, Route, Frequency, Duration) [...] 1 tablet Orally Once a day Unknown VITAL SIGNS BMI 34.45 kg/m2 07/30/2023 Blood pressure systolic 00 mm Hg 07/30/19 24 Blood pressure diastolic 00 mm Hg 024 Height 67 in 07/30/2023 Weight 220 lbs 07/30/2023 Encounters Encounter Location Date Provider Diagnosis [facility] [address] [place] [address] 07/30/2023 Mohit Vasquez Gastroesophageal ref lux K21.9 ; Hiatal hernia K44.9 and Cough, unspecified type R05.9 ASSESSMENTS Encounter Date Diagnosis Assessment Notes Treatment Notes Treatment Clinical Notes 07/30/2023 Gastroesophageal ref lux (ICD-10 - K21.9) Decrease the omeprazole to 20mg twice a day. Continue to eat small meals, try to lose weight, don't eat for 3-4 hours before bedtime. 07/30/2023 Hiatal hernia (ICD-1 0 - K44.9) 07/30/2023 Cough, unspecified t ype (ICD-10 - R05.9) PLAN OF TREATMENT Treatment Notes Assessment Notes Gastroesophageal reflux Decrease the ome prazole to 20mg twice a day. Continue to eat small meals, try to lose weight, don't eat for 3-4 hours before bedtime. Next Appt Details Follow Up: prn, Reason: Progress Notes * Examination Category Sub-Category Detail Notes General Examination GENERAL APPEARANCE: pleasant , well nourished, well developed, in no acute distress HEAD: EYES: sclera non-icteric EARS: NOSE: THROAT: NECK/THYROID: no cervical lymphade nopathy, neck supple HEART: S1, S2 normal CHEST: LUNGS: clear to auscultatio n bilaterally ABDOMEN: normal bowel sounds, no guarding or rigidity, no guarding or rigidity, no masses palpable, soft, nontender, nondistended NEUROLOGIC: alert and oriented SKIN: nonjaundiced, no spi james angiomata EXTREMITIES: no edema PERIPHERAL PULSES: BACK: BREASTS: MUSCULOSKELETAL: MALE GENITOURINARY: LYMPH NODES: RECTAL EXAM: FEMALE GENITOURINARY: ORAL CAVITY: mucosa moist
--- OUTSIDE RECORDS SUMMARY | 2024-04-08 08:38 | XMS_ITS | Patient Health Record ---
Author Organization [facility] Address [address] [place] [address] Care Team Providers Care Track Equipment Operator Name Role Phone Ricardo Vasquez MD Primary Care Provider Maximus Ariza Unavailable [phone] Allergies Allergen (clinical drug ingredient) Drug/Non Drug Allergy documented on EMR Reaction Allergy Type Onset Date Status Niacin Unknown Drug Allergy Active Reason For Referral No Information Medications Medication SIG (Take, Route, Frequency, Duration) Notes Start Date End Date Status Gemfibrozil 600 MG 1 tablet Orally once a day Active Econazole Nitrate 1 % 1 application to a ffected area Externally Once a day for 30 days 01/08/2015 Active Allopurinol 300 MG 1 tablet Orally Once a day for 30 day(s) Active Levothyroxine Sodium 150 MCG 1 tablet on an empty stomach in the morning Orally Once a day for 30 day(s) Active Augmentin 500-125 MG as directed Orally every 12 hrs for 10 days 12/15/2014 Active Multi Vitamin/Minerals as directed Orally Active Metoprolol Succinate Active Social History Tobacco use other than smoking: Question Answer Notes Are you an other tobacco user? No Problems Problem Type SNOMED Code ICD Code Onset Dates Problem Status W/U Status Risk Notes Problem Pain in limb (60239568) Pain in right toe(s) (M79.674) Active confirmed Problem Tinea pedis (7555170) Tinea pedis (B35.3) Active confirmed Plan Of Treatment Pending Test Test Name Order Date [id number] Plate 08/17/2013 [id number] 08/17/2014 74259- Debride <25 sq cm 10/11/2014 37502- Debride <25 sq cm 07/21/2012 90776- Debride <25 sq cm 03/23/2014 [id number] SKIN/TISSUE 09/06/2014 64486 I&D ABSCESS- SIMPLE,SINGLE 015 [id number] I&D ABSCESS- SIMPLE,SINGLE 013 [id number] I&D ABSCESS- SIMPLE,SINGLE 015 Insurance Providers Payer Name Payer Address Payer Phone Subscriber Number Group Number Insured Name Patient Relationship to Insured Coverage Start Date Coverage End Date [facility] [address] [place] [address] [phone] [id number] Jermaine Stiles Self - patient is the insured Medical (General) History Medical History History ICD Code cholesterol Hiatal hernia reflux thyroid disorder Surgical History Surgery Date(Month/Year) gall bladder eye surgery pelvis
--- OUTSIDE RECORDS SUMMARY | 2024-04-08 08:38 | XMS_ITS ---
Author Organization [facility] Address [address] [place] [address] Care Team Providers Care Cashier Assistant Name Role Phone Ricardo Vasquez MD Primary Care Provider Mohit Alston [phone] ALLERGIES Allergen (clinical drug ingredient) Drug/Non Drug Allergy documented on EMR Reaction Allergy Type Onset Date Status Niacin Unknown Drug Allergy Active REASON FOR VISIT Patient presents today for gerd MEDICATIONS Medication SIG (Take, Route, Frequency, Duration) Notes Start Date End Date Status Omeprazole 20 MG 1 capsule 30 minutes before morning meal Orally BID Active Multivitamin Once a day Active Metoprolol Succinate 25 MG 1 capsule Ora lly Once a day Active Allopurinol 300 MG 1 tablet Orally Once a day Active ZyrTEC Allergy 10 MG 1 tablet Orally Onc e a day for 30 day(s) Active Omeprazole 40 MG 1 Orally Twice a day before breakfast and before the evening meal for 90 days 01/27/2023 Active Famotidine 40 MG 1 tablet Orally Once a day Unknown Gemfibrozil 600 MG as directed Orally o nce a day Active Levothyroxine Sodium 150 MCG 1 tablet in the morning on an empty stomach Orally Once a day Active PROBLEMS Problem Type ICD Code Onset Dates Problem Status W/U Status Risk SNOMED Code Notes Problem Gastroesophageal reflux disease without esophagitis (K21.9) Active confirmed 713699248 Problem Cough, unspecified type (R05.9) Active confirmed 26297900 VITAL SIGNS BMI 34.45 kg/m2 01/27/2023 Blood pressure systolic 00 mm Hg 01/28/20 23 Blood pressure diastolic 00 mm Hg 023 Height 67 in 01/27/2023 Temperature 97.8 degrees Fahrenheit 01/28/20 23 Weight 220 lbs 01/27/2023 Encounters Encounter Location Date Provider Diagnosis [facility] [address] [place] [address] 01/27/2023 Mohit Vasquez Gastroesophageal ref lux disease without esophagitis K21.9 ; Cough, unspecified type R05.9 and Hiatal hernia K44.9 ASSESSMENTS Encounter Date Diagnosis Assessment Notes Treatment Notes Treatment Clinical Notes 01/27/2023 Gastroesophageal ref lux disease without esophagitis (ICD-10 - K21.9) Increase the omeprazole to 40mg twice a day. Use 2 of the 20mg pills twice a day, and then switch to the 40mg twice a day. 01/27/2023 Cough, unspecified t ype (ICD-10 - R05.9) 01/27/2023 Hiatal hernia (ICD-1 0 - K44.9) PLAN OF TREATMENT Medication Medication Name Sig Start Date Stop Date Notes Omeprazole 40 MG 1 Orally Twice a day before breakfast and before the evening meal for 90 days 01/27/2023 Treatment Notes Assessment Notes Gastroesophageal reflux dise ase without esophagitis Increase the omeprazole to 40mg twice a day. Use 2 of the 20mg pills twice a day, and then switch to the 40mg twice a day. Next Appt Details Follow Up: 6 Months, Reason: Progress Notes * Examination Category Sub-Category [...]
[2024-04-08 10:40] LABS: Free T4 (Free Thyroxine) 1.05 ng/dL (0.71-1.85); Thyroid Stimulating Hormone 0.57 uIU/mL (0.32-4.0)
== END 2024-04-08 08:24 | disposition home or self-care (01) ==
LOC: HO.HMGCLDS 08:23
PROVIDERS: PCP Family Medicine; Referring Provider Physician Assistant; Visit Provider Family Medicine
DX: E03.9 Hypothyroidism, unspecified (principal)
CPT/HCPCS: 36415; 84439; 84443

== ENCOUNTER 2024-04-25 09:37 | Outpatient (AMB) | payer MEDICARE, SELFPAY ==
--- NOTE | 2024-04-25 09:48 | MHC.OFFVIS ---
Vital Signs 04/25/24 09:49 Height 5 ft 7 in Weight 225 lb 15.581 oz BMI 35.4 BP 120/64 Blood Pressure Location Lt brachial Position Sitting Pulse 94 Pulse Source Pulse Oximeter Pulse Oximetry (%) 94 Oxygen Delivery Method Room Air Intake Visit Reasons: COPD Intake Note: pt is here for follow up and states he does get short of breath with exertion, and now he will have short of breath with sitting, some panic does occur. Mailer Apprentice Required: No Allergies niacin [NIACIN] Allergy (Intermediate, Verified 04/25/24 09:53) RASH, strange sensation/overheats Medication List - Last Reconciled 04/25/24 by Yasir Womack MD albuterol sulfate 90 mcg/actuation 2 puffs inhalation Q4-6H PRN allopurinol 1 tab PO DAILY rcrmjameys-gpopvtwj-dakjjgxtor 160-9-4.8 mcg/actuation (Breztri Aerosphere) inhalations inhalation cetirizine (Allergy Relief (cetirizine)) 10 mg PO DAILY codeine-guaifenesin 10-100 mg/5 mL 10 mL PO Q4-6H PRN 30 days gemfibrozil 1 tab PO DAILY levothyroxine 1 tab PO DAILY metoprolol succinate ER 1 tab PO DAILY omeprazole 20 mg PO BID PRN Do you need a note to return to daycare/school/sports/work: No HPI HPI COPD: Details: THIS 74 YEARS OLD GENTLEMAN COMES ALONG WITH HIS FOR FOLLOW-UP. HE IS COMPLAINING OF MILD TO MODERATE DEGREE OF COUGH ESPECIALLY AT NIGHTTIME. ALSO GETS SHORT OF BREATH WHEN HE WALKS UP HILL OR MORE THAN 1 OR 2 BLOCKS. ACCORDINGLY THE PATIENT HE IS BASICALLY SAME BEFORE. SINCE A COUPLE OF MONTHS, HE HAS BEEN USING BREZTRI TWICE A DAY, PRESCRIBED TO HIM BY HIS PRIMARY CARE PHYSICIAN. HE SAY IS THAT WITH BREZTRI HIS COUGH GETS LITTLE BETTER AT NIGHTTIME. GROVER IS A KNOWN CASE OF PULMONARY FIBROSIS WHICH HAS BEEN MILD AND MOST LIKELY IT STARTED AFTER COVID INFECTION, WHICH HE HAD A FEW YEARS AGO. HE REMAINS OVERWEIGHT THOUGH HE HAS NOT PUT ON ANY EXTRA WEIGHT THIS TIME . ACCORDING TO HIS HE DOES SNORE AT NIGHT, BUT WE HAVE ASKED THE PATIENT ONCE AGAIN AND HE DENIES SYMPTOMS OF OBSTRUCTIVE SLEEP APNEA. HE CLAIMS THAT HE SLEEPS GOOD AT LEAST FOR 6 HOURS EVERY NIGHT. HE HAS DIFFICULTY IN DOING EXERCISE DURING THE DAYTIME, AND HIS WEIGHT REMAINS THE SAME. [facility] Medical History Restrictive lung disease COVID-19 Cough Cough Hiatal hernia Anxiety On beta gabe at home History of kidney stones Arthritis Gout Hyperlipidemia Hypothyroidism Bilateral hearing loss GERD (gastroesophageal reflux disease) Surgical History Hx of colonoscopy History of nasal surgery History of eye surgery History of rectal surgery Hx laparoscopic cholecystectomy History of esophagogastroduodenoscopy (EGD) Social History Alcohol intake: current Alcohol intake frequency: holidays/special occasions only Patient Tobacco Use Status: Never used Tobacco Second Hand Smoke Exposure: No Review of Systems Const All systems reviewed & are unremarkable except as noted in HPI and below Eyes Reports no additional complaints ENT Reports nasal congestion (Mild off and) and Reports nasal discharge (Off and on resulting in cough) Card Denies chest pain, Denies irregular heart rhythm and Denies leg edema Resp Reports as per HPI GI Denies abdominal pain and Denies heartburn Reports no additional complaints Musc Denies myalgias, Denies arthralgias and Denies joint swelling Skin/Breast Denies rash Neuro Denies seizure-like activity Psych Reports no additional complaints Endo Denies heat intolerance Steven/Lymph Denies easy bruising Aller/Immun Denies seasonal rhinorrhea Physical Exam Vital Signs: Last Vital Signs Pulse 94 04/25/24 09:49 BP 120/64 04/25/24 09:49 Pulse Ox 94 04/25/24 09:49 Oxygen Delivery Method Room Air 04/25/24 09:49 BMI result Body Mass Index 35.4 Const General: healthy appearing (Except for being overweight), comfortable, no acute distress, alert and awake Orientation/consciousness: patient oriented x3 HEENT Head: Yes normal to inspection General nose exam: No nasal polyps present and No nasal discharge present Face and sinus: Yes sinuses nontender Mouth: oropharynx normal Throat: Yes posterior oropharynx normal Eyes General: appearance normal, both eyes and all related structures Neck Neck: Yes normal visual inspection, Yes no lymphadenopathy, Yes trachea midline and Yes no JVD Thyroid: Thyroid normal Chest Chest palpation & inspection: normal inspection of the chest, normal palpation of entire chest wall and no tenderness Resp Other: Percussion note is resonant, breath sounds are decreased over the basilar areas. No wheezes . But has a few inspiratory crepitations over the basilar areas especially on left base. Cardio Palpation: normal PMI Rate: regular rate Rhythm: regular rhythm Heart sounds: no gallops and no murmurs Peripheral pulses: Peripheral pulses 2+ throughout GI Palpation (GI): Soft to palpation, nontender, No hepatosplenomegaly present, no masses and Other GI palpation findings present (Abdomen is obese and protuberant) Auscultation: normal bowel sounds Back/Spine/Pelvis Thoracic/Lumbar Spine: thoracic and lumbar spine normal to inspection Skin General skin exam: no rashes or lesions noted Neuro General: patient oriented x3 and no focal motor deficits Cranial nerves: Yes CN's II-XII intact bilaterally Extrem General: Yes normal to inspection, Yes no clubbing, cyanosis or edema and Yes no calf tenderness Psych Appearance: grossly normal and well kempt Speech and movement: Normal speech and movement present Assessment & Plan Assessment & Plan (1) Pulmonary fibrosis: Comment: PATIENT HAS BILATERAL INTERSTITIAL LUNG DISEASE/PULMONARY FIBROSIS WITH HONEYCOMBING, IN UPPER LOBES WELL BASILAR AREAS, THIS MAY BE AFTER COVID INFECTION OR HE MAY HAVE HAD SOME DEGREE OF FIBROSIS EVEN BEFORE. THE LAST CT SCAN OF THE CHEST ON 12/10/2023, SHOWED SLIGHT INCREASE IN THE PULMONARY FIBROSIS PROCESS MAIN COMPLAINT IS COUGH . HIS OXYGENATION HAS BEEN OKAY, Code(s): J84.10 - Pulmonary fibrosis, unspecified Category: Medical Plan: ADVISED TO USE GUAIFENESIN WITH CODEINE SYRUP 1 OR 2 TSP JUST AT NIGHT IT IS OKAY TO USE BREZTRI 1 INHALATION B.I.D. OR HE MAY TRY TO CUT IT DOWN TO ONCE A DAY ONLY AT NIGHTTIME. USE ALBUTEROL HFA 2 PUFFS Q 6 HOURS P.R.N. IF THE COUGH IS PERSISTENT. (2) Cough: Comment: HE HAS CHRONIC COUGH PRIMARILY RELATED TO PULMONARY FIBROSIS, ALSO MAY BE AGGRAVATED BY GERD. COUGH IS RELATIVELY CONTROLLED AND STABLE AT THIS TIME. Code(s): R05.9 - Cough, unspecified Category: Medical Plan: GUAIFENESIN WITH CODEINE 1 OR 2 TSP AT BEDTIME AND ROBITUSSIN 2 TSP T.I.D. DURING THE DAYTIME. (3) Restrictive lung disease: Comment: PER PULMONARY FUNCTION TEST HE HAS MODERATELY SEVERE RESTRICTIVE PULMONARY DISORDER . THIS IS PARTLY DUE TO INTERSTITIAL LUNG DISEASE AND PARTLY DUE TO ABDOMINAL OBESITY. Code(s): J98.4 - Other disorders of lung Category: Medical Plan: ADVISED TO LOSE SOME WEIGHT, BY DIETARY CONTROL AND BY WALKING MORE OR DOING SOME EXERCISE OR WEIGHT LIFTING AT HOME. ALSO SHOULD START DOING BREATHING EXERCISES WITH INCENTIVE SPIROMETRY 3 TIMES A DAY. (4) COVID-19: Comment: STATUS POST COVID INFECTION IN 2020, HAS HAD RESIDUAL INTERSTITIAL LUNG DISEASE / PUMONARY FIBROSIS. Code(s): U07.1 - COVID-19 Category: Medical Plan: HE IS UP TO DATE WITH VACCINES HAS HAD INFLUENZA WELL RSV VACCINE. WE DISCUSSED ABOUT THE PREVENTIVE MEASURES TO GUARD AGAINST ANY VIRAL OR BACTERIAL INFECTION. Coding Level of Care Code Est Pt Level 3 (78969) Diagnoses Pulmonary fibrosis J84.10 Cough R05.9 Restrictive lung disease J98.4 COVID-19 U07.1
[2024-04-25 09:49] VITALS: BP 120/64; PULSE 94; O2SAT 94; BMI 35.4
--- OUTSIDE RECORDS SUMMARY | 2024-04-25 10:30 | XMS_ITS ---
Author Organization [facility] Address [address] [place] [id number] Care Team Providers Care Clothing Cutter Name Role Phone Ricardo Vasquez MD Primary Care Provider Mohit Alston [phone] Allergies Allergen (clinical drug ingredient) Drug/Non Drug Allergy documented on EMR Reaction Allergy Type Onset Date Status niacin Niacin Unknown Drug Allergy Active REASON FOR VISIT Patient presents today for gerd Medications Medication SIG (Take, Route, Frequency, Duration) [...] empty stomach Orally Once a day Active Problems Problem Type SNOMED Code ICD Code Onset Dates Problem Status W/U Status Risk Notes Problem 012593198 Gastroesophageal reflux disease without esophagitis (K21.9) Active confirmed Problem 84685254 Cough, unspecifi ed type (R05.9) Active confirmed Vital Signs Temperature 97.8 degrees Fahrenheit 01/28/20 23 Blood pressure systolic 00 mm Hg 01/28/20 23 Blood pressure diastolic 00 mm Hg 023 Height 67 in 01/27/2023 Weight 220 lbs 01/27/2023 BMI 34.45 kg/m2 01/27/2023 Encounters Encounter Location Date Provider Diagnosis [facility] [address] [place] [address] 01/27/2023 Mohit Vasquez Gastroesophageal ref lux disease without esophagitis K21.9 ; Cough, unspecified type R05.9 and Hiatal hernia K44.9 Assessments Encounter Date Diagnosis (ICD Code) Assessment Notes Treatment Notes Treatment Clinical Notes Section Notes 01/27/2023 Gastroesophageal reflux disease without esophagitis (ICD-10 - K21.9) Increase the omeprazole to 40mg twice a day. Use 2 of the 20mg pills twice a day, and then switch to the 40mg twice a day. Overall, Jermaine appears quite well from a GI standpoint. We did review his history of reflux and his hiatal hernia with their possible association to his intermittent coughing, dental issues, and pulmonary disease. From strictly a GI standpoint his current regimen of the PPI is working well and suppressing any symptoms of acid reflux. His endoscopy 2 years ago did not reveal any signs of reflux-associate d inflammation nor injury such as Ramirez's esophagus. Based on that clinical history, his current lack of any GI symptoms, and the upper GI series from earlier this year, I think a repeat upper endoscopy would be of low yield and is not necessary at this time. In regard to the potential association with his other issues of coughing, pulmonary disease with associated symptoms of dyspnea, and some dental issues, I advised him that is a much harder issue to objectively prove. Even if we were to definitively know his reflux is playing a role in those issues, I would be somewhat hard pressed to recommend any treatment such as hiatal hernia surgery given his comorbidities of his age, weight, and underlying pulmonary disease. I advised him that clearly his dyspnea and other pulmonary symptoms could certainly be related to his weight, his age, and some component of deconditioning. I don't think putting him through other reflux studies, such as pH probes, would be all that helpful since we have already documented acid reflux in the past. At this point I advised him that I think the relatively simplest and safest approach would be to increase his omeprazole to 40 mg b.i.d. for maximal acid suppression for at least several months to see if that makes any difference in his coughing and pulmonary symptoms. If that happens to make a significant difference for him then we can consider continuing that on a long-term basis rather than consider putting him through hiatal hernia surgery. On the other hand, if a course of the high-dose PPI he does not affect any of his other issues then we could eventually decrease it again to either 20 mg daily or 20 mg b.i.d. Of note, I did advise him to review all of this with Dr. Womack when he sees him in followup for his pulmonary disease to see what his thoughts are about the reflux and any association to his lung disease. I have given him an appointment to see me in 6 months to see how things are on this higher dose PPI regimen. I did advise him to certainly call me prior to that if he has any problems or questions I can be of assistance with. Jermaine and his were comfortable with this plan. Thank you again for allowing me to participate in Jermaine's care. I shall continue to keep you advised of his progress. Thank you again for allowing me to participate in Jermaine's care. I shall continue to keep you advised of his progress. 01/27/2023 Cough, unspecified type (ICD-10 - R05.9) Overall, Jermaine appears quite well from a GI standpoint. We did review his history of reflux and his hiatal hernia with their possible association to his intermittent coughing, dental issues, and pulmonary disease. From strictly a GI standpoint his current regimen of the PPI is working well and suppressing any symptoms of acid reflux. His endoscopy 2 years ago did not reveal any signs of reflux-associate d inflammation nor injury such as Ramirez's esophagus. Based on that clinical history, his current lack of any GI symptoms, and the upper GI series from earlier this year, I think a repeat upper endoscopy would be of low yield and is not necessary at this time. In regard to the potential association with his other issues of coughing, pulmonary disease with associated symptoms of dyspnea, and some dental issues, I advised him that is a much harder issue to objectively prove. Even if we were to definitively know his reflux is playing a role in those issues, I would be somewhat hard pressed to recommend any treatment such as hiatal hernia surgery given his comorbidities of his age, weight, and underlying pulmonary disease. I advised him that clearly his dyspnea and other pulmonary symptoms could certainly be related to his weight, his age, and some component of deconditioning. I don't think putting him through other reflux studies, such as pH probes, would be all that helpful since we have already documented acid reflux in the past. At this point I advised him that I think the relatively simplest and safest approach would be to increase his omeprazole to 40 mg b.i.d. for maximal acid suppression for at least several months to see if that makes any difference in his coughing and pulmonary symptoms. If that happens to make a significant difference for him then we can consider continuing that on a long-term basis rather than consider putting him through hiatal hernia surgery. On the other hand, if a course of the high-dose PPI he does not affect any of his other issues then we could eventually decrease it again to either 20 mg daily or 20 mg b.i.d. Of note, I did advise him to review all of this with Dr. Womack when he sees him in followup for his pulmonary disease to see what his thoughts are about the reflux and any association to his lung disease. I have given him an appointment to see me in 6 months to see how things are on this higher dose PPI regimen. I did advise him to certainly call me prior to that if he has any problems or questions I can be of assistance with. Jermaine and his were comfortable with this plan. Thank you again for allowing me to participate in Jermaine's care. I shall continue to keep you advised of his progress. Thank you again for allowing me to participate in Jermaine's care. I shall continue to keep you advised of his progress. 01/27/2023 Hiatal hernia (ICD-10 - K44.9) Overall, Jermaine appears quite well from a GI standpoint. We did review his history of reflux and his hiatal hernia with their possible association to his intermittent coughing, dental issues, and pulmonary disease. From strictly a GI standpoint his current regimen of the PPI is working well and suppressing any symptoms of acid reflux. His endoscopy 2 years ago did not reveal any signs of reflux-associate d inflammation nor injury such as Ramirez's esophagus. Based on that clinical history, his current lack of any GI symptoms, and the upper GI series from earlier this year, I think a repeat upper endoscopy would be of low yield and is not necessary at this time. In regard to the potential association with his other issues of coughing, pulmonary disease with associated symptoms of dyspnea, and some dental issues, I advised him that is a much harder issue to objectively prove. Even if we were to definitively know his reflux is playing a role in those issues, I would be somewhat hard pressed to recommend any treatment such as hiatal hernia surgery given his comorbidities of his age, weight, and underlying pulmonary disease. I advised him that clearly his dyspnea and other pulmonary symptoms could certainly be related to his weight, his age, and some component of deconditioning. I don't think putting him through other reflux studies, such as pH probes, would be all that helpful since we have already documented acid reflux in the past. At this point I advised him that I think the relatively simplest and safest approach would be to increase his omeprazole to 40 mg b.i.d. for maximal acid suppression for at least several months to see if that makes any difference in his coughing and pulmonary symptoms. If that happens to make a significant difference for him then we can consider continuing that on a long-term basis rather than consider putting him through hiatal hernia surgery. On the other hand, if a course of the high-dose PPI he does not affect any of his other issues then we could eventually decrease it again to either 20 mg daily or 20 mg b.i.d. Of note, I did advise him to review all of this with Dr. Womack when he sees him in followup for his pulmonary disease to see what his thoughts are about the reflux and any association to his lung disease. I have given him an appointment to see me in 6 months to see how things are on this higher dose PPI regimen. I did advise him to certainly call me prior to that if he has any problems or questions I can be of assistance with. Jermaine and his were comfortable with this plan. Thank you again for allowing me to participate in Jermaine's care. I shall continue to keep you advised of his progress. Thank you again for allowing me to participate in Jermaine's care. I shall continue to keep you advised of his progress. Plan Of Treatment Medication Medication Name Sig Start Date Stop [...] Up: 6 Months, Reason: Progress Notes * JERMAINE GRANT PDOB: [birth year] (73 yo M)Acc No.[id number]:01/27/2023 Progress Notes Patient:JERMAINE GREENE Provider:?Mohit Vasquez MD :1950???Age:72 Y???Sex:Male Vipul e:01/27/2023 Address:[address] [place] [address] Pcp:Ricardo Vasquez MD Subjective: * Chief Complaints: * ???Patient presents today fo r gerd * HPI: ???incontinence:? I saw Jermaine in the office today for evaluation of his underlying history of reflux, hiatal hernia, and chronic coughing. He was accompanied by his . ?I last saw Jermaine in December of 2020, at which time he underwent an upper endoscopy and screening colonoscopy. His colonoscopy was negative for any sign of polyps nor other abnormalities. His upper endoscopy revealed his known small to moderate sized hiatal hernia, benign gastric polyps without any H. pylori on the biopsies, and no evidence of any esophagitis nor Ramirez's esophagus. Since that time he has remained on omeprazole at 20 mg b.i.d. He denies any significant heartburn, dysphagia, early satiety, nausea, nor vomiting. He reports that his bowel movements have been fairly regular without any signs of bleeding. He denies abdominal pain, jaundice, nor unintentional weight loss. He denies any known family history of colorectal cancer. ?As you know, he has been troubled for many years with an intermittent cough that has been occasionally blamed on his reflux. He also advises me that he has had some recent dental issues and the dentist advised him that his reflux might be playing a role in that is well. Lastly, he has been diagnosed with interstitial lung disease with Dr. Womack. Some thoughts have arisen that he might be having some silent reflux at night causing some lung disease via silent aspiration. ?He does describe continued episodes of coughing, particularly in the morning after awakening. He describes an associated runny nose with his associated coughing. ?He also describes a lot of dyspnea on exertion with activities such as dancing. He also has some coughing during that is well. 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 ?Jermaine and his 's main concern is the question of his hiatal hernia and reflux, and whether or not those issues are playing a role in his other symptoms of the coughing, dyspnea on exertion, dental issues, and interstitial lung disease. ?Jermanie does have a history of documented esophagitis on previous upper endoscopies, although not on the most recent exam in 2020. He also had a 24-hour pH probe in 2009 that was positive for acid reflux off of his PPI medication. ?Laboratories last month revealed a normal CBC. He also had an upper GI back in March that described his known hiatal hernia, known gastric polyps, and some reflux. * ROS:?General/Constitutional:?Change in appetite?denies.?Chills?denies.?Fatigue?denies.?Ophthalmologic:?Comments?all negative.?ENT:?Comments?Bilateral hearing aids.?Respiratory:?hemoptysis?denies.?Admits?Cough.?Cardiovascular:?Chest pain?denies.?Orthopnea?denies.?Gastrointestinal:?Comments?See HPI for details.?Genitourinary:?Hematuria?denies.?Dysuria?denies.?Musculoskeletal:?Painful joints?denies.?Weakness?denies.?Skin:?Itching?denies.?Rash?denies.?Neurologic:?Headache?denies.?Seizures?denies.?Psychiatric:?Comments?all negative.? * Medical History:? * Surgical History:?Laparoscop ic cholecystectomy Broken right femur Anal fistula - Dr. Rodriguez 2018 in fallmetal fragments in eyes * Hospitalization/Major Diagno stic Procedure:?No Hospitalization History. * Family History:?Father: dece ased, TB.?Mother: , diagnosed with Colon cancer.? The patient's mother had colon cancer in her 70's. * Social History:?Tobacco Use:?Tobacco Use/Smoking?Are you a: nonsmoker.?Drugs/Alcohol:?Alcohol Screen?Points: 1, Interpretation: Negative.?Miscellaneous:?Marital status: . 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 ???Very occasional EtOH. nonsmoker. * Medications:?TakingZyrTEC Al lergy 10 MG Tablet 1 tablet Orally Once a dayLevothyroxine Sodium 150 MCG Tablet 1 tablet in the morning on an empty stomach Orally Once a dayGemfibrozil 600 MG Tablet as directed Orally once a dayAllopurinol 300 MG Tablet 1 tablet Orally Once a dayMetoprolol Succinate 25 MG Capsule ER 24 Hour Sprinkle 1 capsule Orally Once a dayMultivitamin Once a dayOmeprazole 20 MG Capsule Delayed Release 1 capsule 30 minutes before morning meal Orally BIDTaking ZyrTEC Allergy 10 MG Tablet 1 tablet Orally Once a dayTaking Levothyroxine Sodium 150 MCG Tablet 1 tablet in the morning on an empty stomach Orally Once a dayTaking Gemfibrozil 600 MG Tablet as directed Orally once a dayTaking Allopurinol 300 MG Tablet 1 tablet Orally Once a dayTaking Metoprolol Succinate 25 MG Capsule ER 24 Hour Sprinkle 1 capsule Orally Once a dayTaking Multivitamin Once a dayTaking Omeprazole 20 MG Capsule Delayed Release 1 capsule 30 minutes before morning meal Orally BIDDiscontinuedTums 500 MG Tablet Chewable 1 tablet Orally as neededAllergy Relief 10 MG Tablet 1 tablet as needed Orally as directedDiscontinued Tums 500 MG Tablet Chewable 1 tablet Orally as neededDiscontinued Allergy Relief 10 MG Tablet 1 tablet as needed Orally as directedUnknownFamotidine 40 MG Tablet 1 tablet Orally Once a dayMedication List reviewed and reconciled with the patientUnknown Famotidine 40 MG Tablet 1 tablet Orally Once a dayMedication List reviewed and reconciled with the patient * Allergies:?Niacinyes[Allergi es Verified] Objective: * Vitals:?Wt: 220 lbs, Ht: 67 in, BMI:34.45 Index, BP: 00/00 mm Hg, Temp: 97.8. * Examination: ???General Examination: ?GENERAL APPEARANCE:?pleasant, well nourished, well developed, in no acute distress.?EYES:?sclera non-icteric.?ORAL CAVITY:?mucosa moist.?NECK/THYROID:?no cervical lymphadenopathy, neck supple.?SKIN:?nonjaundiced, no spider angiomata.?HEART:?S1, S2 normal.?LUNGS:?clear to auscultation bilaterally.?ABDOMEN:?normal bowel sounds, no guarding or rigidity, no guarding or rigidity, no masses palpable, soft, nontender, nondistended.?EXTREMITIES:?no edema.?NEUROLOGIC:?alert and oriented.? Assessment: * Assessment: 1.?Gastroesophageal reflux d isease without esophagitis - K21.9 (Primary)?2.?Cough, unspecified type - R05.9?3.?Hiatal hernia - K44.9? Overall, Jermaine appears darell te well from a GI standpoint. We did review his history of reflux and his hiatal hernia with their possible association to his intermittent coughing, dental issues, and pulmonary disease. From strictly a GI standpoint his current regimen of the PPI is working well and suppressing any symptoms of acid reflux. His endoscopy 2 years ago did not reveal any signs of reflux-associated inflammation nor injury such as Ramirez's esophagus. Based on that clinical history, his current lack of any GI symptoms, and the upper GI series from earlier this year, I think a repeat upper endoscopy would be of low yield and is not necessary at this time. In regard to the potential association with his other issues of coughing, pulmonary disease with associated symptoms of dyspnea, and some dental issues, I advised him that is a much harder issue to objectively prove. Even if we were to definitively know his reflux is playing a role in those issues, I would be somewhat hard pressed to recommend any treatment such as hiatal hernia surgery given his comorbidities of his age, weight, and underlying pulmonary disease. I advised him that clearly his dyspnea and other pulmonary symptoms could certainly be related to his weight, his age, and some component of deconditioning. I don't think putting him through other reflux studies, such as pH probes, would be all that helpful since we have already documented acid reflux in the past. At this point I advised him that I think the relatively simplest and safest approach would be to increase his omeprazole to 40 mg b.i.d. for maximal acid suppression for at least several months to see if that makes any difference in his coughing and pulmonary symptoms. If that happens to make a significant difference for him then we can consider continuing that on a long-term basis rather than consider putting him through hiatal hernia surgery. On the other hand, if a course of the high-dose PPI he does not affect any of his other issues then we could eventually decrease it again to either 20 mg daily or 20 mg b.i.d. Of note, I did advise him to review all of this with Dr. Womack when he sees him in followup for his pulmonary disease to see what his thoughts are about the reflux and any association to his lung disease. I have given him an appointment to see me in 6 months to see how things are on this higher dose PPI regimen. I did advise him to certainly call me prior to that if he has any problems or questions I can be of assistance with. Jermaine and his were comfortable with this plan. Thank you again for allowing me to participate in Jermaine's care. I shall continue to keep you advised of his progress. Thank you again for allowing me to participate in Jermaine's care. I shall continue to keep you advised of his progress. Plan: * Treatment: * Procedure Codes:?3017F COLOR ECTAL CA SCREEN DOC [id number] TOBACCO [id number] BP SCR NOT PRFRM REC REASON NOS * Preventive Medicine:? ??Counseling:?Care goal follow-up plan:?Above Normal BMI Follow-up?Giving encouragement to exercise,?BMI management provided?Yes.? * Follow Up:?6 Months * * Sign off status: Completed true * Provider:?Mohit Vasquez MD Date:? 023 Generated for Tyrone mcclain/Bj/Erin on:?04/25/2024 10:30 AM EDT History and Physical Notes * HPI (History of Present Illness) Category Sub-Category Detail Notes Category Not es incontinence I saw Jermaine in the office today for evaluation of his underlying history of reflux, hiatal hernia, and chronic coughing. He was accompanied by his . I last saw Jermaine in December of 2020, at which time he underwent an upper endoscopy and screening colonoscopy. His colonoscopy was negative for any sign of polyps nor other abnormalities. His upper endoscopy revealed his known small to moderate sized hiatal hernia, benign gastric polyps without any H. pylori on the biopsies, and no evidence of any esophagitis nor Ramirez's esophagus. Since that time he has remained on omeprazole at 20 mg b.i.d. He denies any significant heartburn, dysphagia, early satiety, nausea, nor vomiting. He reports that his bowel movements have been fairly regular without any signs of bleeding. He denies abdominal pain, jaundice, nor unintentional weight loss. He denies any known family history of colorectal cancer. As you know, he has been troubled for many years with an intermittent cough that has been occasionally blamed on his reflux. He also advises me that he has had some recent dental issues and the dentist advised him that his reflux might be playing a role in that is well. Lastly, he has been diagnosed with interstitial lung disease with Dr. Womack. Some thoughts have arisen that he might be having some silent reflux at night causing some lung disease via silent aspiration. He does describe continued episodes of coughing, particularly in the morning after awakening. He describes an associated runny nose with his associated coughing. He also describes a lot of dyspnea on exertion with activities such as dancing. He also has some coughing during that is well. 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 Jermaine and his 's main concern is the question of his hiatal hernia and reflux, and whether or not those issues are playing a role in his other symptoms of the coughing, dyspnea on exertion, dental issues, and interstitial lung disease. Jermaine does have a history of documented esophagitis on previous upper endoscopies, although not on the most recent exam in 2020. He also had a 24-hour pH probe in 2009 that was positive for acid reflux off of his PPI medication. Laboratories last month revealed a normal CBC. He also had an upper GI back in March that described his known hiatal hernia, known gastric polyps, and some reflux. Examination Category Sub-Category Detail Notes Category Not es General Examination GENERAL APPEARANCE: pleasant , well [...]
--- OUTSIDE RECORDS SUMMARY | 2024-04-25 10:30 | XMS_ITS | Patient Health Record ---
Author Organization [facility] Address [address] [place] [address] Care Team Providers Care Senior Analysis Specialist Name Role Phone Ricardo Vasquez MD Primary Care Provider Maximus Ariza Unavailable [phone] Allergies Allergen (clinical drug ingredient) Drug/Non Drug Allergy documented on EMR Reaction Allergy Type Onset Date Status niacin Niacin Unknown Drug Allergy Active Reason For [...] Status Risk Notes Problem Pain in limb (47375671) Pain in right toe(s) (M79.674) Active confirmed Problem Tinea pedis (4816622) Tinea pedis (B35.3) Active confirmed Plan Of Treatment Pending Test Test Name Order Date [id number] Plate 08/17/2013 43744-ZED 08/17/2014 59118- Debride <25 sq cm 10/11/2014 06738- Debride <25 sq cm 07/21/2012 41198- Debride <25 sq cm 03/23/2014 27720-ZFDJIXQ SKIN/TISSUE 09/06/2014 15881 I&D ABSCESS- SIMPLE,SINGLE 015 [id number] I&D ABSCESS- SIMPLE,SINGLE 013 [id number] I&D ABSCESS- SIMPLE,SINGLE 015 Insurance Providers Payer Name Payer Address Payer Phone Subscriber Number Group Number Insured Name Patient Relationship to Insured Coverage Start Date Coverage End Date [facility] [place] [address] [id number] Jermaine Stiles Self - patient is the insured Medical (General) History Medical History History ICD Code cholesterol Hiatal hernia reflux thyroid disorder Surgical History Surgery Date(Month/Year) gall bladder eye surgery pelvis
--- OUTSIDE RECORDS SUMMARY | 2024-04-25 10:30 | XMS_ITS | Patient Health Record ---
Author Organization [facility] Address [address] [place] [address] Care Team Providers Care Washery Boss Name Role Phone Pedro COLEMAN, Ricardo Primary Care Provider Mohit Alston [phone] Allergies Allergen (clinical drug ingredient) Drug/Non Drug [...] 1 tablet Orally Once a day Unknown Immunizations Vaccine Route Administration Date Status Comme nts Influenza Unknown 10/17/2020 Administered Influenza Unknown 08/02/2019 Refused Problems Problem Type SNOMED Code ICD Code Onset Dates Problem Status W/U Status Risk Notes Problem 826959850 Encounter for screening for malignant neoplasm of colon (Z12.11) Active confirmed Problem 203773963 Gastroesophageal reflux disease with esophagitis (K21.0) Active confirmed Problem 401693190 Gastroesophageal reflux disease without esophagitis (K21.9) Active confirmed Problem Gastric polyp (13218526) Gastric polyp (K31.7) Active confirmed Problem 60028041 Hiatal hernia (K44.9) Active confirmed Problem 62516728 Esophagitis (K20.9) Active confirmed Problem 978206987 Abnormal barium swallow (R93.3) Active confirmed Problem Esophageal reflux finding (915617279) Gastroesophageal reflux (K21.9) Active confirmed Problem Diverticulosis of colon (880159553) Diverticulosis of colon (K57.30) Active confirmed Problem 99095983 Cough, unspecifi ed type (R05.9) Active confirmed Vital Signs Blood pressure diastolic 00 mm Hg 07/30/2023 Height 67 in 07/30/2023 Blood pressure systolic 00 mm Hg 07/30/2023 Weight 220 lbs 07/30/2023 BMI 34.45 kg/m2 07/30/2023 Encounters Encounter Location Date Provider Diagnosis [facility] [address] [place] [address] 07/30/2023 Mohit Vasquez Gastroesophageal ref lux K21.9 ; Hiatal hernia K44.9 and Cough, unspecified type R05.9 Assessments Encounter Date Diagnosis (ICD Code) Assessment Notes Treatment Notes Treatment Clinical Notes Section Notes 07/30/2023 Hiatal hernia (ICD-10 - K44.9) Overall, Jermaine appears well from a GI standpoint. It appears that increasing the omeprazole did not help any of his symptoms such as coughing and shortness of breath. Therefore, I advised him to decrease the omeprazole again to 20 mg b.i.d.. We did review his hiatal hernia but I still don't think having him undergo surgery for that would give him any definitive relief in regard to his coughing and shortness of breath. Therefore, given his age and comorbidities I don't think it would be worthwhile to put him through any type of surgery for that. We did review that obviously watching his diet carefully, eating small meals, trying to lose weight, and being sure not to eat for several hours before bedtime would not only be good for his reflux, but would definitely benefit his overall health in regard to his pulmonary status. I don't think he needs any type of endoscopic intervention at this time. If things remained stable from a GI standpoint I have advised him to see me on a p.r.n. basis. Jermaine and his were very comfortable with this plan. Thank you again for allowing me to participate in Jermaine's care. I shall continue to keep you advised of this progress as needed. Please do not hesitate to contact me if I can be of any further assistance in the future. 07/30/2023 Gastroesophageal reflux (ICD-10 - K21.9) Decrease the omeprazole to 20mg twice a day. Continue to eat small meals, try to lose weight, don't eat for 3-4 hours before bedtime. Overall, Jermaine appears well from a GI standpoint. It appears that increasing the omeprazole did not help any of his symptoms such as coughing and shortness of breath. Therefore, I advised him to decrease the omeprazole again to 20 mg b.i.d.. We did review his hiatal hernia but I still don't think having him undergo surgery for that would give him any definitive relief in regard to his coughing and shortness of breath. Therefore, given his age and comorbidities I don't think it would be worthwhile to put him through any type of surgery for that. We did review that obviously watching his diet carefully, eating small meals, trying to lose weight, and being sure not to eat for several hours before bedtime would not only be good for his reflux, but would definitely benefit his overall health in regard to his pulmonary status. I don't think he needs any type of endoscopic intervention at this time. If things remained stable from a GI standpoint I have advised him to see me on a p.r.n. basis. Jermaine and his were very comfortable with this plan. Thank you again for allowing me to participate in Jermaine's care. I shall continue to keep you advised of this progress as needed. Please do not hesitate to contact me if I can be of any further assistance in the future. 07/30/2023 Cough, unspecified type (ICD-10 - R05.9) Overall, Jermaine appears well from a GI standpoint. It appears that increasing the omeprazole did not help any of his symptoms such as coughing and shortness of breath. Therefore, I advised him to decrease the omeprazole again to 20 mg b.i.d.. We did review his hiatal hernia but I still don't think having him undergo surgery for that would give him any definitive relief in regard to his coughing and shortness of breath. Therefore, given his age and comorbidities I don't think it would be worthwhile to put him through any type of surgery for that. We did review that obviously watching his diet carefully, eating small meals, trying to lose weight, and being sure not to eat for several hours before bedtime would not only be good for his reflux, but would definitely benefit his overall health in regard to his pulmonary status. I don't think he needs any type of endoscopic intervention at this time. If things remained stable from a GI standpoint I have advised him to see me on a p.r.n. basis. Jermaine and his were very comfortable with this plan. Thank you again for allowing me to participate in Jermaine's care. I shall continue to keep you advised of this progress as needed. Please do not hesitate to contact me if I can be of any further assistance in the future. Plan Of Treatment Future Test Test Name Order Date UPPER GI ENDOSCOPY 05/15/2015 COLONOSCOPY 08/02/2019 UPPER GI ENDOSCOPY 11/15/2020 COLONOSCOPY 11/15/2020 Insurance Providers Payer Name Payer Address Payer Phone Subscriber Number Group Number Insured Name Patient Relationship to Insured Coverage Start Date Coverage End Date [facility] [address] [place] [phone] [id number] JERMAINE GRANT Self - patient is the insured Medical (General) History Medical History History ICD Code GERD--EGD 08/2009--moderate s ized HH, no esophagitis--positive 24 hour pH study off PPI's Colonoscopy 08/2009-neg except for an inf lammatory polyp Denies ID,DM,CVA,Lung disease,renal dise ase Bilateral hearing aids Hypothyroidism [...]
--- OUTSIDE RECORDS SUMMARY | 2024-04-25 10:30 | XMS_ITS ---
Author Organization [facility] Address [address] [place] [address] Care Team Providers Care Paleology Professor Name Role Phone Ricardo Vasquez MD Primary Care Provider Mohit Alston [phone] Allergies Allergen (clinical drug ingredient) Drug/Non Drug [...] 1 tablet Orally Once a day Unknown Vital Signs Blood pressure systolic 00 mm Hg 07/30/19 24 Blood pressure diastolic 00 mm Hg 024 Height 67 in 07/30/2023 Weight 220 lbs 07/30/2023 BMI 34.45 kg/m2 07/30/2023 Encounters Encounter Location Date Provider Diagnosis [facility] [address] [place] [address] 07/30/2023 Mohit Vasquez Gastroesophageal ref lux K21.9 ; Hiatal hernia K44.9 and Cough, unspecified type R05.9 Assessments Encounter Date Diagnosis (ICD Code) Assessment Notes Treatment Notes Treatment Clinical Notes Section Notes 07/30/2023 Gastroesophageal reflux (ICD-10 - K21.9) Decrease [...] any further assistance in the future. 07/30/2023 Hiatal hernia (ICD-10 - K44.9) Overall, [...] assistance in the future. Plan Of Treatment Treatment Notes Assessment Notes Gastroesophageal reflux Decrease the ome prazole to 20mg twice a day. Continue to eat small meals, try to lose weight, don't eat for 3-4 hours before bedtime. Next Appt Details Follow Up: prn, Reason: Progress Notes * JERMAINE GRANT PDOB: [birth year] (73 yo M)Acc No.[id number]:07/30/2023 Progress Notes Patient:?JERMAINE GRANT P Provider:?Mohit Vasquez MD :1950???Age:73 Y???Sex:Male Vipul e:07/30/2023 Address:[address] [place] [address] Pcp:Ricardo Vasquez MD Subjective: * Chief Complaints: * ???Patient presents today fo r gerd * HPI: ???incontinence:? I saw Jermaine in followup today in regard to his chronic gastroesophageal reflux, hiatal hernia, and chronic coughing and other pulmonary symptoms. He was accompanied by his . ?I last saw Jermaine in January of 2023, at which time we have reviewed his history of reflux and hiatal hernia with their possible association to his coughing and other pulmonary symptoms. At that time we increase his omeprazole from 20 mg b.i.d. to 40 mg b.i.d. to see if that would give him any relief in regard to the coughing. At that time he was doing well from a GI standpoint in regard to his reflux symptoms. ?Since I saw him in January he has been using 40 mg of omeprazole b.i.d. compliantly. However, he has not noticed any change in his coughing or other symptoms including dyspnea on exertion. He does continue to see Dr. Womack as well. He is eating comfortably and denies any problem such as dysphagia, early satiety, nausea, vomiting, or significant heartburn. His bowel movement regular and without any signs of bleeding. He denies any jaundice, abdominal pain, nor unintentional weight loss. ?He does report that he does have a followup appointment coming up with Dr. Womack to further review his pulmonary issues. * ROS:?General/Constitutional:?Change in appetite?denies.?Chills?denies.?Fatigue?denies.?Ophthalmologic:?Comments?all negative.?ENT:?Comments?Bilateral hearing aids.?Respiratory:?hemoptysis?denies.?Admits?Cough.?Cardiovascular:?Chest [...] 1, Interpretation: Negative.?Miscellaneous:?Marital status: . 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 ???Very occasional EtOH. nonsmoker. * Medications:?TakingOmeprazol e 40 MG Capsule Delayed Release 1 Orally Twice a day before breakfast and before the evening mealZyrTEC Allergy 10 MG Tablet 1 tablet Orally Once a dayLevothyroxine Sodium 150 MCG Tablet 1 tablet in the morning on an empty stomach Orally Once a dayGemfibrozil 600 MG Tablet as directed Orally once a dayAllopurinol 300 MG Tablet 1 tablet Orally Once a dayMetoprolol Succinate 25 MG Capsule ER 24 Hour Sprinkle 1 capsule Orally Once a dayguaiFENesin-Codeine 100- 10 MG/5ML Solution TAKE 10 ML ORALLY EVERY 4 TO 6 HOURS NEEDED FOR PERSISTANT COUGH FOR 30 DAYS Oral Albuterol Sulfate HFA 108 (90 Base) MCG/ACT Aerosol Solution Inhalation Fluocinonide 0.05 % Solution External Taking Omeprazole 40 MG Capsule Delayed Release 1 Orally Twice a day before breakfast and before the evening mealTaking ZyrTEC Allergy 10 MG Tablet 1 tablet [...] Sprinkle 1 capsule Orally Once a dayTaking guaiFENesin-Codeine 100-10 MG/5ML Solution TAKE 10 ML ORALLY EVERY 4 TO 6 HOURS NEEDED FOR PERSISTANT COUGH FOR 30 DAYS Oral Taking Albuterol Sulfate HFA 108 (90 Base) MCG/ACT Aerosol Solution Inhalation Taking Fluocinonide 0.05 % Solution External DiscontinuedMultivitamin Once a dayOmeprazole 20 MG Capsule Delayed Release 1 capsule 30 minutes before morning meal Orally BIDDiscontinued Multivitamin Once a dayDiscontinued Omeprazole 20 MG Capsule Delayed Release 1 capsule 30 minutes before morning meal Orally BIDUnknownFamotidine 40 MG Tablet 1 tablet Orally Once a dayMedication List reviewed and reconciled with the patientUnknown Famotidine 40 MG Tablet 1 tablet Orally Once a dayMedication List reviewed and reconciled with the patient * Allergies:?Niacinyes[Allergi es Verified] Objective: * Vitals:?Wt: 220 lbs, Ht: 67 in, BMI:34.45 Index, BP: 00/00 mm Hg. * Examination: ???General Examination: ?GENERAL APPEARANCE:?pleasant, well nourished, well developed, in no acute distress.?EYES:?sclera non-icteric.?ORAL CAVITY:?mucosa moist.?NECK/THYROID:?no cervical lymphadenopathy, neck supple.?SKIN:?nonjaundiced, no spider angiomata.?HEART:?S1, S2 normal.?LUNGS:?clear to auscultation bilaterally.?ABDOMEN:?normal bowel sounds, no guarding or rigidity, no guarding or rigidity, no masses palpable, soft, nontender, nondistended.?EXTREMITIES:?no edema.?NEUROLOGIC:?alert and oriented.? Assessment: * Assessment: 1.?Gastroesophageal reflux - K21.9 (Primary)?2.?Hiatal hernia - K44.9?3.?Cough, unspecified type - R05.9? Overall, Jermaine appears wel l from a GI standpoint. It appears that [...] of any further assistance in the future. Plan: * Treatment: * Procedure Codes:?3017F COLOR ECTAL CA SCREEN DOC [id number] TOBACCO NON-[id number] BP SCR NOT PRFRM REC REASON NOS * Preventive Medicine:? ??Counseling:?Care goal follow-up plan:?Above Normal BMI Follow-up?Giving encouragement to exercise,?BMI management provided?Yes.? * Follow Up:?prn * * Sign off status: Completed true * Provider:?Mohit Vasquez MD Date:? 024 Generated for Yusrai johny/Bj/eTransmitting on:?04/25/2024 10:30 AM EDT History and Physical Notes * HPI (History of Present Illness) Category Sub-Category Detail Notes Category Not es incontinence I saw Jermaine in followup today in regard to his chronic gastroesophageal reflux, hiatal hernia, and chronic coughing and other pulmonary symptoms. He was accompanied by his . I last saw Jermaine in January of 2023, at which time we have reviewed his history of reflux and hiatal hernia with their possible association to his coughing and other pulmonary symptoms. At that time we increase his omeprazole from 20 mg b.i.d. to 40 mg b.i.d. to see if that would give him any relief in regard to the coughing. At that time he was doing well from a GI standpoint in regard to his reflux symptoms. Since I saw him in January he has been using 40 mg of omeprazole b.i.d. compliantly. However, he has not noticed any change in his coughing or other symptoms including dyspnea on exertion. He does continue to see Dr. Womack as well. He is eating comfortably and denies any problem such as dysphagia, early satiety, nausea, vomiting, or significant heartburn. His bowel movement regular and without any signs of bleeding. He denies any jaundice, abdominal pain, nor unintentional weight loss. He does report that he does have a followup appointment coming up with Dr. Womack to further review his pulmonary issues. Examination Category Sub-Category Detail Notes Category Not [...]
== END 2024-04-25 10:26 | disposition home or self-care (01) ==
PROVIDERS: PCP Family Medicine; Visit Provider Internal Medicine
DX: J84.10 Pulmonary fibrosis, unspecified (principal); R05.9 Cough, unspecified; J98.4 Other disorders of lung; U07.1 COVID-19
CPT/HCPCS: 99213

== ENCOUNTER → 2024-04-25 09:37 | Outpatient (BNVA) | payer MEDICARE, SELFPAY | PROVIDERS: PCP Family Medicine; Visit Provider Internal Medicine | DX: J84.10 Pulmonary fibrosis, unspecified (principal); U09.9 Post COVID-19 condition, unspecified; J98.4 Other disorders of lung; R05.9 Cough, unspecified | CPT/HCPCS: 99212 ==

== ENCOUNTER 2024-06-15 08:49 | Outpatient (REF) | payer MEDICARE, SELFPAY ==
--- NOTE | 2024-06-15 08:55 | PFT_ITS ---
Spirometry [] Lung Volumes [] Diffusion Capacity [] Methacholine Challenge [] Flow Volume Loops [] MVV [] MIP/MEP(Max inspiratory pressure/Max expiratory pressure) [] 6 Minute Walk Test [] ABG [] Interpretation [] MTDD
--- OUTSIDE RECORDS SUMMARY | 2024-06-15 09:13 | XMS_ITS | Patient Health Record ---
Author Organization [facility] Address [address] [place] [address] Care Team Providers Care Quality Assurance Qa Lab Analyst Name Role Phone Ricardo Vasquez MD Primary Care Provider Maximus Ariza Unavailable [phone] Allergies Allergen (clinical drug ingredient) Drug/Non Drug [...] Status Risk Notes Problem Pain in limb (72482865) Pain in right toe(s) (M79.674) Active confirmed Problem Tinea pedis (4290235) Tinea pedis (B35.3) Active confirmed Plan Of Treatment Pending Test Test Name Order Date [id number] Plate 08/17/2013 [id number] 08/17/2014 20969- Debride <25 sq cm 10/11/2014 78704- Debride <25 sq cm 07/21/2012 57733- Debride <25 sq cm 03/23/2014 93846-PRTKTIT SKIN/TISSUE 09/06/2014 74033 I&D ABSCESS- SIMPLE,SINGLE 015 [id number] I&D ABSCESS- SIMPLE,SINGLE 013 [id number] I&D ABSCESS- SIMPLE,SINGLE 015 Insurance Providers Payer Name Payer Address Payer Phone Subscriber Number Group Number Insured Name Patient Relationship to Insured Coverage Start Date Coverage End Date [facility] [address] [place] [address] [phone] [id number] Jermaine Stiles Self - patient is the insured Medical (General) History Medical History History ICD Code cholesterol Hiatal hernia reflux thyroid disorder Surgical History Surgery Date(Month/Year) gall bladder eye surgery pelvis
[2024-06-15 09:35] VITALS: PULSE 95; O2SAT 94
== END 2024-06-15 08:50 | disposition home or self-care (01) ==
LOC: HO.RESP 08:49
PROVIDERS: PCP Family Medicine; Visit Provider Internal Medicine
DX: J84.10 Pulmonary fibrosis, unspecified (principal); R05.9 Cough, unspecified; J98.4 Other disorders of lung; R06.00 Dyspnea, unspecified
CPT/HCPCS: 94010; 94640; 94727; 94729

== ENCOUNTER → 2024-06-15 08:55 | Outpatient (BNV) | payer MEDICARE, SELFPAY | PROVIDERS: PCP Family Medicine; Visit Provider Internal Medicine Pulmonary Disease | DX: J84.10 Pulmonary fibrosis, unspecified (principal); J98.4 Other disorders of lung; R05.9 Cough, unspecified | CPT/HCPCS: 94060; 94727; 94729 ==

== ENCOUNTER → 2024-07-25 10:22 | Outpatient (BNVA) | payer SELFPAY | PROVIDERS: PCP Family Medicine; Visit Provider Internal Medicine | DX: Z02.79 Encounter for issue of other medical certificate (principal) ==

== ENCOUNTER 2024-10-24 09:35 | Outpatient (AMB) | payer MEDICARE, SELFPAY ==
[2024-10-24 09:38] VITALS: BP 130/66; PULSE 82; O2SAT 94; BMI 35.0
--- NOTE | 2024-10-24 09:38 | A.OFFVIS_ITS ---
Vital Signs 10/24/24 09:38 Height 5 ft 7 in Weight 223 lb 12.307 oz BMI 35.0 BP 130/66 Blood Pressure Location Lt brachial Position Sitting Pulse 82 Pulse Source Pulse Oximeter Pulse Oximetry (%) 94 Oxygen Delivery Method Room Air Intake Visit Reasons: copd Intake Note: Pt wants to discuss PFT results. C/O of dry cough and continued SOB. 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 Accompanied by: Self / Same As Patient Allergies niacin (NIACIN) Allergy (Intermediate, Verified 10/24/24 10:16) RASH, strange sensation/overheats Medication List - Last Reconciled 10/24/24 by Yasir Womack MD albuterol sulfate 90 mcg/actuation 2 puffs inhalation Q4-6H PRN allopurinol 1 tab PO DAILY gwwpxpyefc-eypimwhw-uehunvpbku 160-9-4.8 mcg/actuation (Breztri Aerosphere) inhalations inhalation cetirizine (Allergy Relief (cetirizine)) 10 mg PO DAILY codeine-guaifenesin 10-100 mg/5 mL 10 mL PO Q4-6H PRN 30 days gemfibrozil 1 tab PO DAILY levothyroxine 1 tab PO DAILY metoprolol succinate ER 1 tab PO DAILY omeprazole 20 mg PO BID PRN Do you need a note to return to daycare/school/sports/work: No HPI HPI copd: Details: This 74 years old very pleasant gentleman, with diagnosis of pulmonary fibrosis as well as some obstructive component. Is here for follow-up after 6 months. He remains grossly obese but denies symptoms of sleep apnea. According to his he is actually sleeping much better than before. He has mild intermittent cough which is mostly dry. He does use guaifenesin- codeine syrup once in a while. He does experience a little bit more shortness of breath on walking. He and his both walk almost daily but at a slow pace. He remains grossly obese and has not been able to lose much weight. [facility]LY [facility] Medical History Restrictive lung disease COVID-19 Cough Cough Hiatal hernia Anxiety On beta gabe at home History of kidney stones Arthritis Gout Hyperlipidemia Hypothyroidism Bilateral hearing loss GERD (gastroesophageal reflux disease) Surgical History Hx of colonoscopy History of nasal surgery History of eye surgery History of rectal surgery Hx laparoscopic cholecystectomy History of esophagogastroduodenoscopy (EGD) Social History Alcohol intake: current Alcohol intake frequency: holidays/special occasions only Patient Tobacco Use Status: Never used Tobacco Second Hand Smoke Exposure: No Review of Systems Const All systems reviewed & are unremarkable except as noted in HPI and below Eyes Reports no additional complaints ENT Reports nasal congestion (Mild off and) and Reports nasal discharge (Off and on resulting in cough) Card Denies chest pain, Denies irregular heart rhythm and Denies leg edema Resp Reports as per HPI GI Denies abdominal pain and Denies heartburn Reports no additional complaints Musc Denies myalgias, Denies arthralgias and Denies joint swelling Skin/Breast Denies rash Neuro Denies seizure-like activity Psych Reports no additional complaints Endo Denies heat intolerance Steven/Lymph Denies easy bruising Aller/Immun Denies seasonal rhinorrhea Physical Exam Vital Signs: Last Vital Signs Pulse 82 10/24/24 09:38 BP 130/66 10/24/24 09:38 Pulse Ox 94 10/24/24 09:38 Oxygen Delivery Method Room Air 10/24/24 09:38 BMI result Body Mass Index 35.0 Const General: healthy appearing (Except for being overweight), comfortable, no acute distress, alert and awake Orientation/consciousness: patient oriented x3 HEENT Head: Yes normal to inspection General nose exam: No nasal polyps present and No nasal discharge present Face and sinus: Yes sinuses nontender Mouth: oropharynx normal Throat: Yes posterior oropharynx normal Eyes General: appearance normal, both eyes and all related structures Neck Neck: Yes normal visual inspection, Yes no lymphadenopathy, Yes trachea midline and Yes no JVD Thyroid: Thyroid normal Chest Chest palpation & inspection: normal inspection of the chest, normal palpation of entire chest wall and no tenderness Resp Other: Percussion note is resonant, breath sounds are decreased over the basilar areas. No wheezes . But has a few inspiratory crepitations over the basilar areas especially on left base. Cardio Palpation: normal PMI Rate: regular rate Rhythm: regular rhythm Heart sounds: no gallops and no murmurs Peripheral pulses: Peripheral pulses 2+ throughout GI Palpation (GI): Soft to palpation, nontender, No hepatosplenomegaly present, no masses and Other GI palpation findings present (Abdomen is obese and protuberant) Auscultation: normal bowel sounds Back/Spine/Pelvis Thoracic/Lumbar Spine: thoracic and lumbar spine normal to inspection Skin General skin exam: no rashes or lesions noted Neuro General: patient oriented x3 and no focal motor deficits Cranial nerves: Yes CN's II-XII intact bilaterally Extrem General: Yes normal to inspection, Yes no clubbing, cyanosis or edema and Yes no calf tenderness Psych Appearance: grossly normal and well kempt Speech and movement: Normal speech and movement present Results Reviewed Results Reviewed: Pulmonary function test on 06/15/2024. Is compared to his PFT on 03/15/2021. There is progressive decrease in the total lung capacity and FVC . Consistent with increased restrictive lung disease. 4 minutes walk . I walked him in the corridor for 4-5 minutes. O2 sat at rest 95%. After walking down to 88%, and comes up to 91% within 2 minute. Assessment & Plan Assessment & Plan (1) Pulmonary fibrosis: Comment: PATIENT HAS BILATERAL INTERSTITIAL LUNG DISEASE/PULMONARY FIBROSIS WITH HONEYCOMBING, IN UPPER LOBES WELL BASILAR AREAS, THIS MAY BE AFTER COVID INFECTION OR HE MAY HAVE HAD SOME DEGREE OF FIBROSIS EVEN BEFORE. THE LAST CT SCAN OF THE CHEST ON 12/10/2023, SHOWED SLIGHT INCREASE IN THE PULMONARY FIBROSIS PROCESS MAIN COMPLAINT IS COUGH . TODAY I DID NOTICE THAT HIS O2 SAT, DROPPED TO 88% AFTER WALKING 4-5 MINUTES. RECENT PULMONARY FUNCTION TEST ALSO SHOWS DECREASE IN FVC WELL TLC. Code(s): J84.10 - Pulmonary fibrosis, unspecified Category: Medical Plan: DISCUSSED WITH THE PATIENT AND HIS THAT SUSPECT SOME PROGRESSION OF THE INTERSTITIAL LUNG DISEASE. PLAN TO REPEAT CT SCAN OF THE CHEST, HAD DISCUSSION ABOUT USE OF ANTIFIBROTIC AGENTS, WILL SEE HIM BACK IN 2 MONTHS AND AT THAT TIME WILL REVIEW THE CT SCAN, ALSO DO 6 MINUTES WALK TEST. (2) Cough: Comment: HE HAS CHRONIC COUGH PRIMARILY RELATED TO PULMONARY FIBROSIS, ALSO MAY BE AGGRAVATED BY GERD. COUGH IS RELATIVELY CONTROLLED AND STABLE AT THIS TIME. Code(s): R05.9 - Cough, unspecified Category: Medical Plan: CONTINUE TO USE COUGH DROPS NEEDED. CODEINE-GUAIFENESIN SYRUP 10-100 1 OR 2 TSP Q 4-6 HOURS P.R.N. CONTINUE TO USE BREZTRI 1 INHALATION DAILY ALBUTEROL HFA 2 PUFFS Q 6 HOURS P.R.N. FOR MORE PERSISTENT COUGH (3) Restrictive lung disease: Comment: PER PULMONARY FUNCTION TEST HE HAS MODERATELY SEVERE RESTRICTIVE PULMONARY DISORDER . THIS IS PARTLY DUE TO INTERSTITIAL LUNG DISEASE AND PARTLY DUE TO ABDOMINAL OBESITY. Code(s): J98.4 - Other disorders of lung Category: Medical Plan: EXPLAINED ABOUT THE RESULTS AND. ENCOURAGED HIM TO CUT DOWN THE USE OF CARBOHYDRATES, ALSO WALK MUCH POSSIBLE EVEN AT A LOW PACE. DO DEEP BREATHING EXERCISES. 2 TO 3 TIMES A DAY (4) Obesity: Comment: HE REMAINS MODERATELY OBESE, WITH A ROUND FACE PHYSICAL FEATURES ARE SUGGESTIVE OF OBSTRUCTIVE SLEEP APNEA. BUT HE STILL DENIES ANY SYMPTOMS OF SLEEP APNEA Code(s): E66.9 - Obesity, unspecified Category: Medical Plan: AGAIN NOTED ABOVE HE IS ADVISED TO LOSE SOME WEIGHT (5) COVID-19: Comment: STATUS POST COVID INFECTION IN 2020, HAS HAD RESIDUAL INTERSTITIAL LUNG DISEASE / PUMONARY FIBROSIS. Code(s): U07.1 - COVID-19 Category: Medical Plan: COVID VACCINE ONCE A YEAR IS RECOMMENDED Orders: Orders CT chest wo con - High Res 6 Weeks J84.10 - Pulmonary fibrosis, unspecified, J98.4 - Other disorders of lung, R05.9 - Cough, unspecified Coding Level of Care Code Est Pt Level 4 (60842) Diagnoses Pulmonary fibrosis J84.10 Cough R05.9 Restrictive lung disease J98.4 Obesity E66.9 COVID-19 U07.1
--- OUTSIDE RECORDS SUMMARY | 2024-10-24 10:58 | XMS_ITS | Clinical Summary ---
Author Organization [facility] Address [address] [place] [address] Phone Care Team Providers Care Kiln Stacker Name Role Phone Ricardo Vasquez MD Primary Care Provider Allergies Active Allergy Reactions Criticality Noted Date Comments Niacin Flushing 08/13/2017 Other 08/13/2017 environmental Medications gemfibrozil (LOPID) 600 MG tablet Take 600 mg by mouth daily. Active metoprolol succinate (TOPROL-XL) 25 MG 24 hr tablet Take 25 mg by mouth daily. Active levothyroxine (SYNTHROID, LEVOTHROID) 150 MCG tablet Take 150 mcg by mouth every morning. Active therapeutic multivitamin tablet Take 1 tablet by mouth daily. Active cetirizine (ZYRTEC) 10 MG tablet Take 10 mg by mouth daily. Active omeprazole (PRILOSEC) 40 MG capsuleIndication s:unsure strength Take 40 mg by mouth 2 (two) times a day. Indications: unsure strength Active albuterol 90 mcg/actuation inhaler Inhalation for 30 Active BREZTRI AEROSPHERE 160-9-4.8 mcg/actuation inhaler 5 Active allopurinol (ZYLOPRIM) 300 MG tabletIndications :Gout, arthritis,On allopurinol therapy TAKE 1 TABLET (300MG TOTAL) BY MOUTH EVERY DAY 90 tablet 3 5 Active Active Problems Problem Noted Date Diagnosed Date Class 1 obesity due to exces s calories with serious comorbidity and body mass index (BMI) of 34.0 to 34.9 in adult 04/10/2023 Assessment & Plan (04/13/2024 10:10 AM EST): Congratulations on losing 1 pound from 226 on 04/10/2023 down to 225 today and keep it off. Continue diligent portion control. Limit concentrated sugars, saturated fats and calories in the diet. Keep well-hydrated. If unable to achieve expected goal consider formal dietary/nutritional support. Assessment & Plan (04/10/2023 11:12 AM EST): Congratulations on losing 8 pounds from 234 on 05/02/2021 down to 226 today and keep it off. Continue diligent portion control. Limit concentrated sugars, saturated fats and calories in the diet. Keep well-hydrated. If unable to achieve expected goal consider formal dietary/nutritional support. Gastroesophageal reflux disease without esophagi tis 04/30/2020 Assessment & Plan (04/13/2024 9:43 AM EST): Avoid late, large, spicy meals. Keep headboard elevated at 45 angle for nighttime. Carefully continue omeprazole 40 mg twice daily and follow closely with prescribing physician exactly as scheduled. Assessment & Plan (04/10/2023 10:43 AM EST): Avoid late, large, spicy meals. Keep headboard elevated at 45 angle for nighttime. Assessment & Plan (05/02/2021 10:29 AM EDT): Avoid late, large, spicy meals. Keep headboard elevated at 45 angle for nighttime. Assessment & Plan (10/29/2020 10:16 AM EDT): Avoid late, large, spicy meals. Keep headboard elevated at 45 angle for nighttime. Assessment & Plan (04/30/2020 10:21 AM EDT): Avoid late, large, spicy meals. Keep headboard elevated at 45 angle for nighttime. Primary osteoarthritis involving multiple joints 09/08/2018 Assessment & Plan (04/13/2024 9:43 AM EST): Joint protection, energy conservation. Avoid falls, injuries, overuse. Gentle, regular exercise routine as tolerated. Work diligently on reducing body weight as close as possible to ideal range for his height. Topical cream versus patch as needed. Call if worse, ready for formal physical therapy or local steroid injection Assessment & Plan (04/10/2023 10:42 AM EST): Joint protection, energy conservation. Avoid falls, injuries, overuse. Gentle, regular exercise routine as tolerated. Work diligently on reducing body weight as close as possible to ideal range for his height. Topical cream versus patch as needed. Call if worse, ready for formal physical therapy or local steroid injection Assessment & Plan (05/02/2021 10:29 AM EDT): Joint protection, energy conservation. Avoid falls, injuries, overuse. Gentle, regular exercise routine as tolerated. Work diligently on reducing body weight as close as possible to ideal range for his height. Topical cream versus patch as needed. Call if worse, ready for formal physical therapy or local steroid injection Assessment & Plan (11/06/2020 12:05 PM EDT): Joint protection, energy conservation. Avoid falls, injuries, overuse. Gentle, regular exercise routine as tolerated. Work diligently on reducing body weight as close as possible to ideal range for his height. Topical cream versus patch as needed. Call if worse, ready for formal physical therapy or local steroid injection Assessment & Plan (04/30/2020 10:19 AM EDT): Joint protection, energy conservation. Avoid falls, injuries, overuse. Gentle, regular exercise routine as tolerated. Work diligently on reducing body weight as close as possible to ideal range for his height. Topical cream versus patch as needed. Call if worse is ready for formal physical therapy orlocal steroid injection Assessment & Plan (03/11/2019 10:34 AM EST): Joint protection, energy conservation. Avoid falls, injuries, overuse. Gentle, regular exercise routine as tolerated. Work diligently on reducing body weight as close as possible to ideal range for his height. Topical cream versus patch as needed. Call if worse is ready for formal physical therapy orlocal steroid injection Assessment & Plan (09/18/2018 3:16 PM EDT): Joint protection, energy conservation. Avoid falls, injuries, overuse. Gentle, regular exercise routine as tolerated. Work diligently on reducing body weight as close as possible to ideal range for his height. Topical cream versus patch as needed. Call if worse is ready for formal physical therapy orlocal steroid injection Hypercalcemia 09/08/2018 Assessment & Plan (09/18/2018 3:16 PM EDT): I have requested few additional tests to make sure that he does not need additional work-up. Get labs within the next couple of weeks making sure that he refrains from OTC calcium supplements. 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 LFT elevation 03/11/2018 Gout, arthritis 08/13/2017 Assessment & Plan (04/13/2024 10:08 AM EST): Clinically stable-new set of lab work requested today and prior to next visit-standing orders in epic. Carefully continue current dose of allopurinol. Proper hydration. Low purine diet. Return in12 months with prior blood work monitoring safety and efficacy of therapy-standing orders in [facility]. Call with questions or problems in the interim. Assessment & Plan (04/10/2023 11:10 AM EST): Clinically and laboratory hernández stable except for elevated BUN that should be monitored and contoured by proper hydration. Carefully continue current dose of allopurinol. Proper hydration. Low purine diet. Return in12 months with prior blood work monitoring safety and efficacy of therapy-standing orders in [facility]. Call with questions or problems in the interim. Assessment & Plan (05/07/2021 9:25 AM EDT): Get serum uric acid level today. Carefully continue current dose of allopurinol. Proper hydration. Low purine diet. Return in 6 months with prior blood work monitoring safety and efficacy of therapy-standing orders in [facility]. Call with questions or problems in the interim. Assessment & Plan (11/06/2020 12:06 PM EDT): Get monitoring labs today. Carefully continue current dose of allopurinol. Proper hydration. Low purine diet. Get yearly influenza vaccine by November 2020. Return in 6 months with prior blood work monitoring safety and efficacy of therapy-standing orders in [facility]. Call with questions or problems in the interim. Assessment & Plan (05/06/2020 3:23 PM EDT): Carefully continue current dose of allopurinol. Proper hydration. Low purine diet. Return in 6 months with prior blood work monitoring safety and efficacy of therapy-standing orders in [facility]. Call with questions or problems in the interim. Assessment & Plan (03/11/2019 10:33 AM EST): Carefully continue current dose of allopurinol. Proper hydration. Low purine diet. Return in 6 months with prior blood work monitoring safety and efficacy of therapy. Call with questions or problems in the interim. Assessment & Plan (09/18/2018 3:13 PM EDT): Carefully continue current dose of allopurinol. Proper hydration. Low purine diet. Return in 6 months with prior blood work monitoring safety and efficacy of therapy. Reviewed with patient's benefits of yearly flu vaccination preferably by mid November 2018. Call with questions or problems in the interim. On statin therapy 08/13/2017 Assessment & Plan (05/02/2021 10:30 AM EDT): Monitor for muscle tenderness, swelling and weakness Assessment & Plan (10/29/2020 10:16 AM EDT): Monitor for muscle tenderness, swelling and weakness Assessment & Plan (04/30/2020 10:20 AM EDT): Monitor for muscle tenderness, swelling and weakness Assessment & Plan (03/11/2019 10:35 AM EST): Monitor for muscle tenderness, swelling and weakness Assessment & Plan (09/18/2018 3:17 PM EDT): Take exactly as prescribed. Monitor for muscle tenderness, swelling and weakness On allopurinol therapy 08/13/2017 Assessment & Plan (04/13/2024 9:43 AM EST): Take exactly as prescribed. Keep well-hydrated. Monitor for abdominal pain, unusual skin rash or discoloration or bruising. Return for surveillance labs as scheduled Assessment & Plan (04/10/2023 10:42 AM EST): Take exactly as prescribed. Keep well-hydrated. Monitor for abdominal pain, unusual skin rash or discoloration or bruising. Return for surveillance labs as scheduled Assessment & Plan (05/02/2021 10:30 AM EDT): Take exactly as prescribed. Keep well-hydrated. Monitor for abdominal pain, unusual skin rash or discoloration or bruising. Return for surveillance labs as scheduled Assessment & Plan (10/29/2020 10:16 AM EDT): Take exactly as prescribed. Keep well-hydrated. Monitor for abdominal pain, unusual skin rash or discoloration or bruising. Return for surveillance labs as scheduled Assessment & Plan (04/30/2020 10:20 AM EDT): Take exactly as prescribed. Keep well-hydrated. Monitor for abdominal pain, unusual skin rash or discoloration or bruising. Return for surveillance labs as scheduled Assessment & Plan (03/11/2019 10:34 AM EST): Take exactly as prescribed. Keep well-hydrated. Monitor for abdominal pain, unusual skin rash or discoloration or bruising. Return for surveillance labs as scheduled Assessment & Plan (09/18/2018 3:17 PM EDT): Take exactly as prescribed. Keep well-hydrated. Monitor for abdominal pain, unusual skin rash or discoloration or bruising. Return for surveillance labs as scheduled Resolved Problems Problem Noted Date Diagnosed Date Resolved Date Class 2 obesity due to exces s calories without serious comorbidity with body mass index (BMI) of 36.0 to 36.9 in adult 04/30/2020 Assessment & Plan (05/02/2021 10:29 AM EDT): Portion control. Limit concentrated sugars, saturated fats and calories in the diet. Keep well-hydrated. If unable to achieve expected goal consider formal dietary/nutritional support. Assessment & Plan (11/06/2020 12:08 PM EDT): Congratulations on losing 6 pounds since last visit in mid April 2020 (from 235 lbs down to 229 lbs). Portion control. Limit concentrated sugars, saturated fats and calories in the diet. Keep well-hydrated. If unable to achieve expected goal consider formal dietary/nutritional support. Assessment & Plan (04/30/2020 10:21 AM EDT): Portion control. Limit concentrated sugars, saturated fats and calories in the diet. Keep well-hydrated. If unable to achieve expected goal consider formal dietary/nutritional support. Class 2 obesity due to exces s calories without serious comorbidity with body mass index (BMI) of 35.0 to 35.9 in adult 08/13/2017 Assessment & Plan (03/11/2019 10:34 AM EST): Portion control. Limit concentrated sugars, saturated fats and calories in the diet. Keep well-hydrated. If unable to achieve expected goal consider formal dietary/nutritional support. Assessment & Plan (09/18/2018 3:13 PM EDT): Portion control. Limit concentrated sugars, saturated fats and calories in the diet. Keep well-hydrated. If unable to achieve expected goal consider formal dietary/nutritional support. Immunizations Immunization Administration Dates Next Due COVID-19 (Pre-12/08) Pfizer Vaccine, mRNA, PF ,04/25/2020 Pneumococcal conjugate PCV13 04/03/2016 Pneumococcal polysaccharide PPSV23 03/22/2018 Tdap 02/21/2019 Zoster recombinant 10/04/2020,07/30/2020 Social History Tobacco Use Types Packs/Day Years Used Date Smoking Tobacco: Never Smokeless Tobacco: Never Tobacco Cessation:Counseling Given: Not Answered Alcohol Use Standard Drinks/Week Comments Yes 0 (1 standard drink = 0.6 oz pur e alcohol) occasional Education Answer Date Recorded Are you interested in more education? Not on michel e 06/13/2022 Are you concerned about learning? Not on file 06/13/2022 No 06/13/2022 No 06/13/2022 Digital Access Answer Date Recorded No 07/12/2022 No 07/12/2022 Reliable internet access at home? Not on file 07/12/2022 Device with a working camera? Not on file Sex and Gender Information Value Date Recorded Sex Assigned at Not on file Legal Sex Male 10:37 PM EDT Gender Identity Not on file Sexual Orientation Not on file Last Filed Vital Signs Vital Sign Reading Time Taken Comments Blood Pressure 112/62 04/13/2024 9:36 AM EST Pulse 86 04/10/2023 10:14 AM EST Temperature - - Respiratory Rate - - Oxygen Saturation 95% 04/10/2023 10:14 AM EST Inhaled Oxygen Concentration - - Weight 102.1 kg (225 lb) 04/13/2024 9:36 AM EST Height 171.5 cm (5' 7.52 ) 04/13/2024 9:36 AM ES T Body Mass Index 34.7 04/13/2024 9:36 AM EST Plan of Treatment Health Maintenance Due Date Last Done Comments LIPID PANEL 1949 TSH LEVEL 1949 DEPRESSION SCREENING 1961 HEPATITIS C SCREENING 1967 COLOGUARD 1994 COLONOSCOPY 1994 COLORECTAL CANCER SCREENING 1994 FIT TEST 1994 FOBT 1994 SIGMOIDOSCOPY 1994 VIRTUAL COLONOSCOPY 1994 INFLUENZA VACCINE (#1) 2024 , 02/13/2023, 12/22/2021, Additional history exists COVID-19 VACCINE ( season) 2024 12/12/2023, 01/09/2021, 05/16/2020, Additional history exists CREATININE LEVEL 04/13/2025 04/13/2024, , 03/10/2018, Additional history exists Adult Td,Tdap Booster 02/21/2029 02/21/2019 PNEUMOCOCCAL VACCINES (50+ years) Completed 03/22/2018, 04/03/2016 ZOSTER VACCINES Completed 10/04/2020, 07/30/2020 RSV VACCINE Completed 12/19/2023 SMOKING STATUS SCREENING (Once After 26 Yrs) Completed 04/13/2024 HEPATITIS A VACCINES Aged Out No long er eligible based on patient's age to complete this topic HIB VACCINES Aged Out No longer eligi ble based on patient's age to complete this topic MENINGOCOCCAL VACCINES (ACWY) Aged Out No longer eligible based on patient's age to complete this topic MENINGOCOCCAL VACCINES (B) Aged Out N o longer eligible based on patient's age to complete this topic Medical Devices Not on file Procedures Procedure Name Priority Date/Time Associated Diagnosis Comments COMPREHENSIVE METABOLIC PANEL Routine 04/13/2024 10:12 AM EST Gout, arthritis On allopurinol therapy from Last 3 Months or Most Recently Relevant to Health Maintenance Results * (ABNORMAL) Comprehensive metabolic panel (04/13/2024 10:12 AM EST) SODIUM 137 133 - 146 mmol/L [facility] POTASSIUM 4.6 3.3 - 5.1 mmol/L [facility] CHLORIDE 102 96 - 108 mmol/L [facility] CO2 23 21 - 35 mmol/L [facility] BUN 24(H) 6 - 19 mg/dL [facility] CREATININE 0.90 0.5 - 1.5 mg/dL [facility] GLUCOSE 102(H) 70 - 99 mg/dL [facility] ALBUMIN 4.1 3.9 - 4.8 g/dL [facility] TOTAL PROTEIN 7.2 6.5 - 8.0 g/dL [facility] CALCIUM 9.6 8.4 - 10.3 mg/dL [facility] ALKALINE PHOSPHATASE 117 39 - 117 U/L [facility] TOTAL BILIRUBIN 0.6 0.0 - 1.2 mg/dL [facility] AST 44(H) 0 - 37 U/L [facility] ALT 47(H) 0 - 40 U/L [facility] GLOBULIN 3.1 1 - 4.8 g/dL [facility] EGFR 89 >59 mL/min/1.7 3m2 [facility] Comment:Estimated glomerular filtration rate calculated using the CKD-EPI refit equation. ANION GAP 17 10 - 20 mmol/L [facility] Blood 04/13/2024 10:1 2 AM EST 04/13/2024 10:14 AM EST us Joellen Kennedy MD LAB BLOOD ORDERABLES Fin al Result Performing Organization Address City/State/[facility] Co de Phone Number [facility] [address] [place], [place] [id number] from Last 3 Months or Most Recently Relevant to Health Maintenance Insurance [employer] HMO REPLACEMENT [facility] MEDICARE HMO REPLACEMENT [address] [address] MEDICARE HMO REPLACEMENT [facility] MEDICARE HMO REPLACEMENT MEDICARE HMO REPLACEMENT MEDICARE HMO REPLACEMENT MEDICARE HMO REPLACEMENT [employer]PLACEMENT Care Teams Kiln Stacker Relationship Specialty Start Date End Date Ricardo Vasquez MD [address] [place] [address] Dr SALAS [address] [place] [id number] PCP - General Internal Medicine 08/13/17 Additional Source Comments The information contained in this document represents components of the legal health record. It is not the complete legal health record.[facility]
--- OUTSIDE RECORDS SUMMARY | 2024-10-24 10:58 | XMS_ITS | Patient Health Record ---
Author Organization [facility] Address [address] [place] [id number] Care Team Providers Care Cripple Cutter Name Role Phone Pedro (RETIRED) Ricardo COLEMAN Primary Care Provider Unavailable Mohit Vasquez Unavailable [phone] Allergies Allergen (clinical drug ingredient) Drug/Non Drug [...] Problem Status W/U Status Risk Notes Problem 036642046 Encounter for screening for malignant neoplasm of colon (Z12.11) Active confirmed Problem 163333267 Gastroesophageal reflux disease with esophagitis (K21.0) Active confirmed Problem 408303932 Gastroesophageal reflux disease without esophagitis (K21.9) Active confirmed Problem Gastric polyp (84648830) Gastric polyp (K31.7) Active confirmed Problem 95830255 Hiatal hernia (K44.9) Active confirmed Problem 38033630 Esophagitis (K20.9) Active confirmed Problem 746256202 Abnormal barium swallow (R93.3) Active confirmed Problem Esophageal reflux finding (149804739) Gastroesophageal reflux (K21.9) Active confirmed Problem Diverticulosis of colon (875949762) Diverticulosis of colon (K57.30) Active confirmed Problem 29511890 Cough, unspecifi ed type (R05.9) Active confirmed Plan Of Treatment Future Test Test Name Order Date UPPER GI ENDOSCOPY 05/15/2015 COLONOSCOPY 08/02/2019 UPPER GI ENDOSCOPY 11/15/2020 COLONOSCOPY 11/15/2020 Insurance Providers Payer Name Payer Address Payer Phone Subscriber Number Group Number Insured Name Patient Relationship to Insured Coverage Start Date Coverage End Date [facility] [address] [place] [phone] [id number] GROVER GRANT Self - patient is the insured Medical (General) History Medical History History ICD Code GERD--EGD 08/2009--moderate s ized HH, no esophagitis--positive 24 hour pH study off PPI's Colonoscopy 08/2009-neg except for an inf lammatory polyp Denies PR,DM,CVA,Lung disease,renal dise ase Bilateral hearing aids Hypothyroidism [...] right femur Anal fistula - Dr. Rodriguez 2017 in fall metal fragments in eyes
--- OUTSIDE RECORDS SUMMARY | 2024-10-24 10:59 | XMS_ITS | Patient Health Record ---
Author Organization [facility] Address [address] [place] [address] Care Team Providers Care Elevator Builder Name Role Phone Ricardo Vasquez MD Primary Care Provider Maximus Ariza Unavailable [phone] Allergies Allergen (clinical drug ingredient) Drug/Non Drug [...] to a ffected area Externally Once a day; Duration: 30 days 01/08/2015 Active Allopurinol 300 MG 1 tablet Orally Once a day; Duration: 30 day(s) Active Levothyroxine Sodium 150 MCG 1 tablet on an empty stomach in the morning Orally Once a day; Duration: 30 day(s) Active Augmentin 500-125 MG as directed Orally every 12 hrs; Duration: 10 days 12/15/2014 Active Multi Vitamin/Minerals as directed Orally Active Metoprolol Succinate Active Social History Tobacco use other than smoking: Question Answer Notes Are you an other tobacco user? No Problems Problem Type SNOMED Code ICD Code Onset Dates Problem Status W/U Status Risk Notes Problem Pain in limb (86672634) Pain in right toe(s) (M79.674) Active confirmed Problem Tinea pedis (9998322) Tinea pedis (B35.3) Active confirmed Plan Of Treatment Pending Test Test Name Order Date [id number] Plate 08/17/2013 [id number] 08/17/2014 71384- Debride <25 sq cm 10/11/2014 29859- Debride <25 sq cm 07/21/2012 57051- Debride <25 sq cm 03/23/2014 [id number] SKIN/TISSUE 09/06/2014 04243 I&D ABSCESS- SIMPLE,SINGLE 015 [id number] I&D ABSCESS- SIMPLE,SINGLE 013 [id number] I&D ABSCESS- SIMPLE,SINGLE 015 Insurance Providers Payer Name Payer Address Payer Phone Subscriber Number Group Number Insured Name Patient Relationship to Insured Coverage Start Date Coverage End Date [facility] [address] [place] [address] [phone] [id number] Jermaine Stiles Self - patient is the insured Medical (General) History Medical History History ICD Code cholesterol Hiatal hernia reflux thyroid disorder Surgical History Surgery Date(Month/Year) gall bladder eye surgery pelvis
== END 2024-10-24 10:16 | disposition home or self-care (01) ==
LOC: HO.HPS 09:36
PROVIDERS: PCP Family Medicine; Visit Provider Internal Medicine
DX: J84.10 Pulmonary fibrosis, unspecified (principal); R05.9 Cough, unspecified; J98.4 Other disorders of lung; E66.9 Obesity, unspecified; U07.1 COVID-19
CPT/HCPCS: 99214

== ENCOUNTER → 2024-10-24 09:35 | Outpatient (BNVA) | payer MEDICARE, SELFPAY | PROVIDERS: PCP Family Medicine; Visit Provider Internal Medicine | DX: Z71.2 Person consulting for explanation of examination or test findings (principal); R06.02 Shortness of breath; J84.10 Pulmonary fibrosis, unspecified; J98.4 Other disorders of lung; E66.9 Obesity, unspecified; Z86.16 Personal history of COVID-19; R05.9 Cough, unspecified | CPT/HCPCS: 99212 ==

== ENCOUNTER 2024-10-27 10:12 | Outpatient (AMB) | payer MEDICARE, SELFPAY ==
--- NOTE | 2024-10-27 10:14 | A.OFFPC_ITS ---
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 Required: No Accompanied by: Spouse Allergies niacin (NIACIN) Allergy (Intermediate, Verified 10/27/24 10:15) RASH, strange sensation/overheats Tobacco use date assessed: 10/27/24 Last assessed Fall Risk: 10/27/24 Dental Screening Did you have a dental visit in the last 12 months?: Yes Did you have a dental problem in the last 6 months where you did not have access to dental care?: Yes Was dental information given to patient?: Yes HPI HPI Comments History of Present Illness Details The patient is a 74-year-old male presenting for a follow-up visit to evaluate his chronic conditions, particularly pulmonary fibrosis and obstructive lung disease. The patient reports a history of pulmonary issues needing further evaluation, as the obstructive lung disease has yet to be confirmed as Chronic Obstructive Pulmonary Disease. His lung scarring is possibly due to COVID pneumonia or an underlying condition, as patients with such histories are genetically predisposed to biopsy. A breathing test conducted recently showed diminished results compared to the previous year, causing increased concern. The patient has previously lost 20 pounds, although weight loss has since plateaued. Despite limited improvement, his pulmonary fibrosis symptoms require close monitoring. Additionally, the patient manages hypercholesterolemia with Gemfibrozil, hypothyroidism with Levothyroxine, gastroesophageal reflux disease with Omeprazole, and gout with Allopurinol. Past thyroid tests indicated overtreatment, but March results showed the TSH level had returned to a stable 0.57. The patient denies any significant discomfort at present, feels generally well aside from occasional musculoskeletal aches and pains attributed to aging, and maintains a stable lifestyle without engaging in harmful behaviors such as smoking or substance abuse. Although not currently experiencing notable heart problems, previous test results have prompted continued usage of Metoprolol for heart protection. Medical History: - Pulmonary fibrosis - Obstructive lung disease - Hypercholesterolemia - Hypothyroidism - Gastroesophageal reflux disease - Gout - History of gallbladder removal - History of compound femur fracture wit h malunion - Niacin allergy Surgical History: - Gallbladder removal in September 2004 - Multiple dental surgeries since 1959 - Compound femur fracture with multiple cast immobilizations and treatment without complete bone malunion Medications: - Gemfibrozil 600 mg for hypercholestero lemia - Levothyroxine 150 mcg for hypothyroidi sm - Omeprazole for gastroesophageal reflux disease - Allopurinol for gout - Metoprolol for heart protection due to historical blood pressure variability - Albuterol for pulmonary fibrosis and o bstructive lung disease - Breezhaler therapy for lung support Family History: - Mother had colon cancer, successfully treated with surgery - Mother had late-life diabetes Diagnostic Results: - Labs: Thyroid TSH level in March fo und to be 0.57, indicating stability. - Breathing test indicates slight declin e compared to last year. 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 - Engages in limited alcohol consumption , averaging one to two drinks per week. - Engages in attempts to reduce dietary intake of problematic foods due to acid reflux. - Denies smoking and substance use. [facility]LY [facility] Medical History Restrictive lung disease COVID-19 Cough Cough Hiatal hernia Anxiety On beta gabe at home History of kidney stones Arthritis Gout Hyperlipidemia Hypothyroidism Bilateral hearing loss GERD (gastroesophageal reflux disease) Surgical History Hx of colonoscopy History of nasal surgery History of eye surgery History of rectal surgery Hx laparoscopic cholecystectomy History of esophagogastroduodenoscopy (EGD) Social History Housing: House Alcohol intake: current Alcohol intake frequency: holidays/special occasions only Patient Tobacco Use Status: Never used Tobacco e-Cigarette/Vaping Use: Never Used Second Hand Smoke Exposure: No service: No Current occupational status: employed and retired 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 1. Little interest or pleasure in doing things: not at all 2. Feeling down, depressed, or hopeless: not at all 3. Trouble falling or staying asleep, or sleeping too much: not at all 4. Feeling tired or having little energy: not at all 5. Poor appetite or overeating: not at all 6. Feeling bad about yourself - or that you are a failure or have let yourself or your family down: not at all 7. Trouble concentrating on things, such as reading the newspaper or watching television: not at all 8. Moving or speaking so slowly that other people could have noticed. Or the opposite - being so fidgety or restless that you have been moving around a lot more than usual: not at all 9. Thoughts that you would be better off or of hurting yourself in some way: not at all Total score: 0 Depression Screening Interpretation: Negative Depression Screening Done: Yes 97419 - PHQ-9 Billing: Yes Source: Developed by Drs. Mohit Alvarado, Yady Neff, Danielito Lr and colleagues, with an educational charan from [employer]. Thrive Questionnaire Date Thrive assessed: 10/27/24 I am a: Patient What is your living situation today?: I have a steady place to live Within the past 12 months, did the food you bought not last and you didn't have the money to get more?: Never true Within the past 12 months, did you worry whether your food would run out before you got money to buy more?: Never true Do you have trouble paying for medicines?: No Do you have trouble getting transportation to medical appointments?: No Do you have trouble paying your heating and electricity bill?: No Do you have trouble taking care of your child, family member or friend?: No Do you have trouble with day-to-day activities such as bathing, preparing meals, shopping, managing finances, etc.?: No Are you currently unemployed and looking for a job?: No Are you interested in more education?: No THRIVE Score: 0 AUDIT C Alcohol Use Questionnaire (AUDIT-C) 1. How often do you have a drink containing alcohol?: 2-4 times a month 2. How many drinks containing alcohol do you have on a typical day when you are drinking?: 1 or 2 Total Score: 2 Score Reviewed/Action Taken: Yes WILLA-7 AMB Questionnaire WILLA-7 Date WILLA - 7 assessed: 10/27/24 Feeling nervous, anxious, or on edge: 0 = Not at all Not being able to stop or control worryin = Not at all Worrying too much about different things: 0 = Not at all Trouble relaxin = Not at all Being so restless that it is hard to sit still: 0 = Not at all Becoming easily annoyed or irritable: 0 = Not at all Feeling afraid as if something awful might happen: 0 = Not at all Total WILLA-7 score (0-4 normal; 5-9 mild; 10-14 moderate; 15-21 severe): 0 Source: Developed by Drs. Mohit Alvarado, Yady Neff, Danielito Lr and colleagues, with an educational charan from [employer]. WILLA-7 Assessment Billing WILLA-7 Assessment Tool: WILLA-7 Assessment 90859 Review of Systems Const Details: - General: Reports general well-being. - Musculoskeletal: Reports occasional aches and pains due to aging. - Respiratory: Reports decline in frequent breathing test performance; acknowledges past symptoms from pulmonary fibrosis. - Cardiovascular: Denies significant current issues; past pressure readings varied. - Endocrine: Denies current thyroid-related symptoms; reports past high TSH now stable. - Gastrointestinal: Reports management of gastroesophageal reflux disease symptoms. - Psychiatric: Denies depression or anxiety; reports feeling in a good mood. All systems reviewed & are unremarkable except as reviewed in HPI and above Physical exam (Primary Care) Vital Signs: Last Vital Signs Temp 98.2 F 10/27/24 10:26 Pulse 91 10/27/24 10:26 Resp 18 10/27/24 10:26 BP 122/76 10/27/24 10:26 Pulse Ox 98 10/27/24 10:26 Oxygen Delivery Method Room Air 10/27/24 10:26 BMI result Body Mass Index 34.6 Tobacco/Smoking Status: Tobacco use Status Tobacco use date assessed 10/27/24 10/27/24 10:15 Patient Tobacco Use Status Never used Tobacco 10/27/24 10:15 e-Cigarette/Vaping Use Never Used 10/27/24 10:30 Depression Screening Interpretation: Negative Const Other: General: +Alert and oriented, Well nourished, No acute distress. Eye: Pupils are equal, round and reactive to light, Intact accommodation, Extraocular movements are intact, Normal conjunctiva, Vision unchanged. HENT: Normocephalic, Atraumatic, Tympanic membranes are clear, Hearing impaired (uses hearing aids), Oral mucosa is moist, No pharyngeal erythema, Ear canals patent. Respiratory: Lungs CTA bilaterally, No wheeze, Respirations are non-labored, Pulmonary fibrosis and obstructive lung disease present. Cardiovascular: Regular rate, Regular rhythm, S1 auscultated, S2 auscultated, No murmur, Good pulses equal in all extremities, Normal peripheral perfusion, No edema. Gastrointestinal: Soft, Non-tender, Non-distended, Normal bowel sounds, No organomegaly. Musculoskeletal: Normal range of motion, Normal strength, No tenderness, No swelling, No deformity, Normal gait. Integumentary: Warm, Dry, [place], Intact. Neurologic: Alert, Oriented, Normal sensory, Normal motor function, No focal defects, Cranial Nerves II-XII are grossly intact, Normal deep tendon reflexes. Psychiatric: Cooperative, Appropriate mood & affect, Normal judgment. Coding Level of Care Code New Pt Level 4 (69292) Complex EM visit Add On G2211 Diagnoses Gastroesophageal reflux disease, unspecified whether esophagitis present K21.9 Esophagitis presence: esophagitis presence not specified Hypothyroidism, unspecified type E03.9 Hypothyroidism type: unspecified Hyperlipidemia, unspecified hyperlipidemia type E78.5 Hyperlipidemia type: unspecified Gout, unspecified cause, unspecified chronicity, unspecified site M10.9 Gout site: unspecified site Gout etiology: unspecified cause Chronicity: unspecified Pulmonary fibrosis J84.10 Dyspnea on exertion R06.00 Chronic cough R05.3 Cough type: chronic Obesity, unspecified class, unspecified obesity type, unspecified whether serious comorbidity present E66.9 Obesity classification: unspecified obesity classification Obesity type: unspecified obesity type Serious obesity comorbidity presence: unspecified whether serious comorbidity present Additional Codes PHQ-9 - 68955 - PHQ-9 Billing: Yes ([id number]) WILLA-7 Assessment Billing - WILLA-7 Assessment Tool: WILLA-7 Assessment 28171 ([id number]) Assessment & Plan Assessment & Plan (1) GERD (gastroesophageal reflux disease): Comment: - Continue Omeprazole, increase frequency to twice daily as needed. (Explained to take 30 minutes before meals) - Recommended dietary adjustments. Code(s): K21.9 - Gastro-esophageal reflux disease without esophagitis Category: Medical Qualifiers: Esophagitis presence: esophagitis presence not specified Qualified Code(s): K21.9 - Gastro-esophageal reflux disease without esophagitis (2) Hypothyroidism: Comment: - Continue Levothyroxine 150 mcg with regular monitoring of thyroid function tests. - Prior TSH levels supressed with normal results in Mar Code(s): E03.9 - Hypothyroidism, unspecified Category: Medical Qualifiers: Hypothyroidism type: unspecified Qualified Code(s): E03.9 - Hypothyroidism, unspecified (3) Hyperlipidemia: Comment: - Currently on Gemfibrozil, with discussion of switching to statin therapy at next visit based on labs today Code(s): E78.5 - Hyperlipidemia, unspecified Category: Medical Qualifiers: Hyperlipidemia type: unspecified Qualified Code(s): E78.5 - Hyperlipidemia, unspecified (4) Gout: Comment: - Continue Allopurinol for uric acid management. Code(s): M10.9 - Gout, unspecified Category: Medical Qualifiers: Gout site: unspecified site Gout etiology: unspecified cause Chronicity: unspecified Qualified Code(s): M10.9 - Gout, unspecified (5) Pulmonary fibrosis: Comment: PATIENT HAS BILATERAL INTERSTITIAL LUNG DISEASE/PULMONARY FIBROSIS WITH HONEYCOMBING, IN UPPER LOBES WELL BASILAR AREAS, THIS MAY BE AFTER COVID INFECTION OR HE MAY HAVE HAD SOME DEGREE OF FIBROSIS EVEN BEFORE. THE LAST CT SCAN OF THE CHEST ON 12/10/2023, SHOWED SLIGHT INCREASE IN THE PULMONARY FIBROSIS PROCESS MAIN COMPLAINT IS COUGH . TODAY I DID NOTICE THAT HIS O2 SAT, DROPPED TO 88% AFTER WALKING 4-5 MINUTES. RECENT PULMONARY FUNCTION TEST ALSO SHOWS DECREASE IN FVC WELL TLC. Code(s): J84.10 - Pulmonary fibrosis, unspecified Category: Medical Plan: - Continue follow up with Christelle (6) Dyspnea on exertion: Comment: It is mild and consistent with obesity as well as minimal pulmonary fibrosis, Encouraged to do deep breathing exercises and must try to lose some weight. Code(s): R06.00 - Dyspnea, unspecified Category: Medical (7) Cough: Comment: HE HAS CHRONIC COUGH PRIMARILY RELATED TO PULMONARY FIBROSIS, ALSO MAY BE AGGRAVATED BY GERD. COUGH IS RELATIVELY CONTROLLED AND STABLE AT THIS TIME. Code(s): R05.9 - Cough, unspecified Category: Medical Qualifiers: Cough type: chronic Qualified Code(s): R05.3 - Chronic cough (8) Obesity: Comment: HE REMAINS MODERATELY OBESE, WITH A ROUND FACE PHYSICAL FEATURES ARE SUGGESTIVE OF OBSTRUCTIVE SLEEP APNEA. BUT HE STILL DENIES ANY SYMPTOMS OF SLEEP APNEA Code(s): E66.9 - Obesity, unspecified Category: Medical Qualifiers: Obesity classification: unspecified obesity classification Obesity type: unspecified obesity type Serious obesity comorbidity presence: unspecified whether serious comorbidity present Qualified Code(s): E66.9 - Obesity, unspecified Plan I discussed with the patient his current management plan for his chronic health conditions. Emphasizing the importance of monitoring lung function due to the pulmonary fibrosis, consistent with the findings of the breathing test, I advised continuing current inhaler therapies. Given the stability in thyroid function tests, I recommended maintaining the current dose of Levothyroxine. We further considered transitioning from Gemfibrozil to statin therapy, provided no hepatic complications arise. Regarding gastroesophageal reflux disease, slight modifications in medication timing and dietary habits were suggested to alleviate symptoms. Lastly, I highlighted the necessity of regular follow-up visits to ensure stability in all chronic conditions, acknowledging potential adjustments pending future evaluations. Orders: Orders Hemoglobin A1c Today E03.9 - Hypothyroidism, unspecified, E78.5 - Hyperlipidemia, unspecified Lipid Panel Today E03.9 - Hypothyroidism, unspecified, E78.5 - Hyperlipidemia, unspecified Complete Blood Count Auto Diff Today E03.9 - Hypothyroidism, unspecified, E78.5 - Hyperlipidemia, unspecified Comprehensive Met. Panel Today E03.9 - Hypothyroidism, unspecified, E78.5 - Hyperlipidemia, unspecified TSH reflex Free T4 Today E03.9 - Hypothyroidism, unspecified, E78.5 - Hyperlipidemia, unspecified Vitamin D 25-OH Total Today E03.9 - Hypothyroidism, unspecified, E78.5 - Hyperlipidemia, unspecified Patient Instructions: - Take Omeprazole twice a day, once in the morning and once in the evening. - Continue current medications as prescribed. - Attempt weight-loss through increased activity and dietary adjustments. - Avoid foods known to trigger acid reflux, such as onions, mushrooms, and tomatoes. - Make follow-up appointments as needed based on future test results.
[2024-10-27 10:26] VITALS: BP 122/76; PULSE 91; RESP 18; TEMP 36.8; O2SAT 98; BMI 34.6
--- OUTSIDE RECORDS SUMMARY | 2024-10-27 12:28 | XMS_ITS | Clinical Summary ---
Author Organization [facility] Address [address] [place] [address] Phone Care Team Providers Care Home Health Nurse Licensed Practical Name Role Phone Ricardo Vasquez MD Primary [...] Continue wearing hearing aides & f/u with hematology nurse Assessment & Plan (05/02/2021 10:29 AM EDT): Continue wearing hearing aides & f/u with hematology nurse Assessment & Plan (10/29/2020 10:17 AM EDT): Continue wearing hearing aides & f/u with hematology nurse Assessment & Plan (04/30/2020 10:23 AM EDT): Continue wearing hearing aides & f/u with hematology nurse Assessment & Plan (09/18/2018 3:16 PM EDT): [...] safety and efficacy of therapy-standing orders in [facility]. Call with questions or problems in the interim. Assessment & Plan (04/10/2023 11:10 AM EST): Clinically and laboratory hernández stable except for elevated BUN that should be monitored and contoured by proper hydration. Carefully continue current dose of allopurinol. Proper hydration. Low purine diet. Return in12 months with prior blood work monitoring safety and efficacy of therapy-standing orders in [facility]. Call with questions or problems in the interim. Assessment & Plan (05/07/2021 9:25 AM EDT): Get serum uric acid level today. Carefully continue current dose of allopurinol. Proper hydration. Low purine diet. Return in 6 months with prior blood work monitoring safety and efficacy of therapy-standing orders in [facility]. Call with questions or problems in the interim. Assessment & Plan (11/06/2020 12:06 PM EDT): Get monitoring labs today. Carefully continue current dose of allopurinol. Proper hydration. Low purine diet. Get yearly influenza vaccine by November 2020. Return in 6 months with prior blood work monitoring safety and efficacy of therapy-standing orders in [facility]. Call with questions or problems in the interim. Assessment & Plan (05/06/2020 3:23 PM EDT): Carefully continue current dose of allopurinol. Proper hydration. Low purine diet. Return in 6 months with prior blood work monitoring safety and efficacy of therapy-standing orders in [facility]. Call with questions or problems in the [...] EST) SODIUM 137 133 - 146 mmol/L [facility] POTASSIUM 4.6 3.3 - 5.1 mmol/L [facility] CHLORIDE 102 96 - 108 mmol/L [facility] CO2 23 21 - 35 mmol/L [facility] BUN 24(H) 6 - 19 mg/dL [facility] CREATININE 0.90 0.5 - 1.5 mg/dL [facility] GLUCOSE 102(H) 70 - 99 mg/dL [facility] ALBUMIN 4.1 3.9 - 4.8 g/dL [facility] TOTAL PROTEIN 7.2 6.5 - 8.0 g/dL [facility] CALCIUM 9.6 8.4 - 10.3 mg/dL [facility] ALKALINE PHOSPHATASE 117 39 - 117 U/L [facility] TOTAL BILIRUBIN 0.6 0.0 - 1.2 mg/dL [facility] AST 44(H) 0 - 37 U/L [facility] ALT 47(H) 0 - 40 U/L [facility] GLOBULIN 3.1 1 - 4.8 g/dL [facility] EGFR 89 >59 mL/min/1.7 3m2 [facility] Comment:Estimated glomerular filtration rate calculated using the CKD-EPI refit equation. ANION GAP 17 10 - 20 mmol/L [facility] Blood 04/13/2024 10:1 2 AM EST 04/13/2024 10:14 AM EST us Joellen Kennedy MD LAB BLOOD ORDERABLES Fin al Result Performing Organization Address [facility]/State[facility] Co de Phone Number [facility] [address] [place], [place] [phone] from Last 3 Months or Most Recently Relevant to Health Maintenance Insurance [employer] HMO REPLACEMENT [facility] MEDICARE HMO REPLACEMENT [address] [address] [address] MEDICARE HMO REPLACEMENT [facility] MEDICARE HMO REPLACEMENT MEDICARE HMO REPLACEMENT MEDICARE HMO REPLACEMENT MEDICARE HMO REPLACEMENT [employer] HMO REPLACEMENT Care Teams Home Health Nurse Licensed Practical Relationship Specialty Start Date End Date Ricardo Vasquez MD [address] [place] [address] Dr SALAS [address] [place] [id number] PCP - General Internal Medicine 08/13/17 Additional Source Comments The information contained in this document represents components of the legal health record. It is not the complete legal health record.[facility]
--- OUTSIDE RECORDS SUMMARY | 2024-10-27 12:28 | XMS_ITS | Patient Health Record ---
Author Organization [facility] Address [address] [place] [address] Care Team Providers Care Self Pay Representative Name Role Phone Pedro (RETIRED) Ricardo COLEMAN Primary Care Provider Unavailable Mohit Vasquez Unavailable [phone] Allergies Allergen (clinical drug ingredient) Drug/Non Drug [...] Problem Status W/U Status Risk Notes Problem [id number] Encounter for screening for malignant neoplasm of colon (Z12.11) Active confirmed Problem 670631496 Gastroesophageal reflux disease with esophagitis (K21.0) Active confirmed Problem 151054215 Gastroesophageal reflux disease without esophagitis (K21.9) Active confirmed Problem Gastric polyp (10994030) Gastric polyp (K31.7) Active confirmed Problem 65145815 Hiatal hernia (K44.9) Active confirmed Problem 36836213 Esophagitis (K20.9) Active confirmed Problem 867711839 Abnormal barium swallow (R93.3) Active confirmed Problem Esophageal reflux finding (035110331) Gastroesophageal reflux (K21.9) Active confirmed Problem Diverticulosis of colon (789078050) Diverticulosis of colon (K57.30) Active confirmed Problem 35231888 Cough, unspecifi ed type (R05.9) Active confirmed Plan Of Treatment Future Test Test Name Order Date UPPER GI ENDOSCOPY 05/15/2015 COLONOSCOPY 08/02/2019 UPPER GI ENDOSCOPY 11/15/2020 COLONOSCOPY 11/15/2020 Insurance Providers Payer Name Payer Address Payer Phone Subscriber Number Group Number Insured Name Patient Relationship to Insured Coverage Start Date Coverage End Date [facility] [address] [place] [phone] [id number] GROVER GRANT Self - patient is the insured Medical (General) History Medical History History ICD Code GERD--EGD 08/2009--moderate s ized HH, no esophagitis--positive 24 hour pH study off PPI's Colonoscopy 08/2009-neg except for an inf lammatory polyp Denies [place],DM,CVA,Lung disease,renal dise ase Bilateral hearing aids Hypothyroidism [...]
--- OUTSIDE RECORDS SUMMARY | 2024-10-27 12:29 | XMS_ITS | Patient Health Record ---
Author Organization [facility] Address [address] [place] [address] Care Team Providers Care Lusterer Name Role Phone Ricardo Vasquez MD Primary Care Provider Maximus Ariza Unavailable [phone] Allergies Allergen (clinical drug ingredient) Drug/Non Drug [...] Status Risk Notes Problem Pain in limb (30553466) Pain in right toe(s) (M79.674) Active confirmed Problem Tinea pedis (2163690) Tinea pedis (B35.3) Active confirmed Plan Of Treatment Pending Test Test Name Order Date [id number] Plate 08/17/2013 [id number] 08/17/2014 05753- Debride <25 sq cm 10/11/2014 39753- Debride <25 sq cm 07/21/2012 67236- Debride <25 sq cm 03/23/2014 24795-RAKKRIF SKIN/TISSUE 09/06/2014 71229 I&D ABSCESS- SIMPLE,SINGLE 015 [id number] I&D ABSCESS- SIMPLE,SINGLE 013 [id number] I&D ABSCESS- SIMPLE,SINGLE 015 Insurance Providers Payer Name Payer Address Payer Phone Subscriber Number Group Number Insured Name Patient Relationship to Insured Coverage Start Date Coverage End Date [facility] [address] [place] [id number] [phone] [id number] Jermaine Stiles Self - patient is the insured Medical (General) History Medical History History ICD Code cholesterol Hiatal hernia reflux thyroid disorder Surgical History Surgery Date(Month/Year) gall bladder eye surgery pelvis
== END 2024-10-27 11:02 | disposition home or self-care (01) ==
LOC: HO.HMCHD 10:13
PROVIDERS: PCP Student in an Organized Health Care Education/Training Program; Visit Provider Student in an Organized Health Care Education/Training Program
DX: K21.9 Gastro-esophageal reflux disease without esophagitis (principal); J84.10 Pulmonary fibrosis, unspecified; E03.9 Hypothyroidism, unspecified; E78.5 Hyperlipidemia, unspecified; M10.9 Gout, unspecified; R06.00 Dyspnea, unspecified; R05.3 Chronic cough; E66.9 Obesity, unspecified

== ENCOUNTER → 2024-10-27 10:12 | Outpatient (BNVA) | payer MEDICARE, SELFPAY | PROVIDERS: PCP Family Medicine; Visit Provider Student in an Organized Health Care Education/Training Program | DX: K21.9 Gastro-esophageal reflux disease without esophagitis (principal); E03.9 Hypothyroidism, unspecified; E78.5 Hyperlipidemia, unspecified; M10.9 Gout, unspecified; J84.10 Pulmonary fibrosis, unspecified; R06.00 Dyspnea, unspecified; R05.3 Chronic cough; E66.9 Obesity, unspecified; Z68.34 Body mass index [BMI] 34.0-34.9, adult; Z79.899 Other long term (current) drug therapy; Z13.31 Encounter for screening for depression; Z13.39 Encounter for screening examination for other mental health and behavioral disorders | CPT/HCPCS: 96127; 99202 ==

== ENCOUNTER 2024-10-27 11:07 | Outpatient (REF) | payer MEDICARE, SELFPAY ==
[2024-10-27 13:16] LABS: MANUAL DIFF FLAG NO
[2024-10-27 13:25] LABS: Hematocrit 48.5 % (42.0-52.0); Hemoglobin 16.6 g/dl (14.0-18.0); Imm Gran Abs Auto 0.03 X10*3/uL (0.00-0.03); Imm Gran Pct Auto 0.4 % (0.0-0.4); Lymphocytes Absolute Auto 1.8 X10*3/uL (1.2-4.9); Mean Corpuscular HGB Conc 34.2 g/dl (31.0-36.0); Mean Corpuscular Hemoglobin 33.4 pg (27.0-33.0); Mean Corpuscular Volume 97.6 fL (80.0-98.0); NRBC Abs Auto 0.000 X10*3/uL (0.0-0.012); NRBC Pct Auto 0.0 /100WBC (0.0-0.2); Platelet Count 266 X10*3/uL (160-400); Red Blood Count 4.97 X10*6/uL (4.60-5.80); White Blood Count 7.8 X10*3/uL (4.8-10.8)
[2024-10-27 13:28] LABS: Hemoglobin A1C 171.5368 umol/L; Total Hemoglobin (HGBA1C) 4197.4363 umol/L
[2024-10-27 13:56] LABS: Alanine Aminotransferase 49 U/L (0-40); Albumin Level 4.7 g/dL (3.5-5.0); Alkaline Phosphatase 93 U/L (39-117); Anion Gap 11 (12-20); Aspartate Amino Transferase 50 U/L (5-37); Blood Urea Nitrogen 24 mg/dL (9-16); Calcium 9.7 mg/dL (8.4-10.2); Carbon Dioxide 30 mmol/L (22-29); Chloride 103 mmol/L (96-108); Cholesterol 210 mg/dL (<200); Estimated Glomerular Filt Rate 58; HDL Cholesterol 40 mg/dL (>40); Potassium 4.4 mmol/L (3.3-5.1); Sodium 140 mmol/L (135-145); Total Protein 7.6 g/dL (6.5-8.0); Triglycerides 312 mg/dL (<150)
== END 2024-10-27 11:08 | disposition home or self-care (01) ==
LOC: HO.10HDL 11:07
PROVIDERS: Visit Provider Student in an Organized Health Care Education/Training Program
DX: E03.9 Hypothyroidism, unspecified (principal); E78.5 Hyperlipidemia, unspecified; Z13.1 Encounter for screening for diabetes mellitus
CPT/HCPCS: 36415; 80053; 80061; 82306; 83036; 84443; 85025

== ENCOUNTER 2024-12-10 09:37 | Outpatient (REF) | payer MEDICARE, SELFPAY ==
--- NOTE | ~2024-12-10 | CT_ITS ---
CLINICAL HISTORY: J84.10 - Pulmonary fibrosis, unspecified CT chest without contrast Comparison: 12/10/2023 Findings: Lung morgan are clear without acute infiltrates. Stable chronic interstitial fibrosis pattern. No significant mediastinal adenopathy. No significant free pleural fluid. No significant focal bony abnormalities. Impression: Stable chronic disease without acute process This document has been electronically signed by: Cuauhtemoc Atkins MD on 12/12/2024 23:47:15
--- OUTSIDE RECORDS SUMMARY | 2024-12-10 09:40 | XMS_ITS | Patient Health Record ---
Author Organization [facility] Address [address] [facility] [place] [address] Care Team Providers Care Joint Supervisor Name Role Phone Ricardo Vasquez MD Primary Care Provider UnavailMaximus Arias Unavailable [phone] Allergies Allergen (clinical drug ingredient) Drug/Non Drug [...] Status Risk Notes Problem Pain in limb (06193198) Pain in right toe(s) (M79.674) Active confirmed Problem Tinea pedis (7025942) Tinea pedis (B35.3) Active confirmed Plan Of Treatment Pending Test Test Name Order Date 42421-Ktteekhk Plate 08/17/2013 34790-BIA 08/17/2014 51042- Debride <25 sq cm 10/11/2014 14106- Debride <25 sq cm 07/21/2012 08397- Debride <25 sq cm 03/23/2014 [id number] SKIN/TISSUE 09/06/2014 31376 I&D ABSCESS- SIMPLE,SINGLE 015 [id number] I&D ABSCESS- SIMPLE,SINGLE [id number] I&D ABSCESS- SIMPLE,SINGLE 015 Insurance Providers Payer Name Payer Address Payer Phone Subscriber Number Group Number Insured Name Patient Relationship to Insured Coverage Start Date Coverage End Date [facility] [address] [place] [address] [phone] [id number] Jermaine Stiles Self - patient is the insured Medical (General) History Medical History History ICD Code cholesterol Hiatal hernia reflux thyroid disorder Surgical History Surgery Date(Month/Year) gall bladder eye surgery pelvis
--- OUTSIDE RECORDS SUMMARY | 2024-12-10 09:40 | XMS_ITS | Clinical Summary ---
Author Organization [facility] Address [address] [place] [address] Phone Care Team Providers Care Warning Analyst Name Role Phone Ricardo Vasquez MD Primary Care Provider [phone] Allergies Active Allergy Reactions Criticality Noted Date [...] Continue wearing hearing aides & f/u with filling winder Assessment & Plan (05/02/2021 10:29 AM EDT): Continue wearing hearing aides & f/u with filling winder Assessment & Plan (10/29/2020 10:17 AM EDT): Continue wearing hearing aides & f/u with filling winder Assessment & Plan (04/30/2020 10:23 AM EDT): Continue wearing hearing aides & f/u with filling winder Assessment & Plan (09/18/2018 3:16 PM EDT): [...] safety and efficacy of therapy-standing orders in [facility]. Call with questions or problems in the interim. Assessment & Plan (04/10/2023 11:10 AM EST): Clinically and laboratory hernández stable except for elevated BUN that should be monitored and contoured by proper hydration. Carefully continue current dose of allopurinol. Proper hydration. Low purine diet. Return in12 months with prior blood work monitoring safety and efficacy of therapy-standing orders in [facility]. Call with questions or problems in the interim. Assessment & Plan (05/07/2021 9:25 AM EDT): Get serum uric acid level today. Carefully continue current dose of allopurinol. Proper hydration. Low purine diet. Return in 6 months with prior blood work monitoring safety and efficacy of therapy-standing orders in [facility]. Call with questions or problems in the interim. Assessment & Plan (11/06/2020 12:06 PM EDT): Get monitoring labs today. Carefully continue current dose of allopurinol. Proper hydration. Low purine diet. Get yearly influenza vaccine by November 2020. Return in 6 months with prior blood work monitoring safety and efficacy of therapy-standing orders in [facility]. Call with questions or problems in the interim. Assessment & Plan (05/06/2020 3:23 PM EDT): Carefully continue current dose of allopurinol. Proper hydration. Low purine diet. Return in 6 months with prior blood work monitoring safety and efficacy of therapy-standing orders in [facility]. Call with questions or problems in [...] 02/13/2023, 12/22/2021, Additional history exists COVID-19 VACCINE (2024- season) 2024 12/12/2023, 01/09/2021, 05/16/2020, Additional history [...] EST) SODIUM 137 133 - 146 mmol/L [facility] POTASSIUM 4.6 3.3 - 5.1 mmol/L [facility] CHLORIDE 102 96 - 108 mmol/L [facility] CO2 23 21 - 35 mmol/L [facility] BUN 24(H) 6 - 19 mg/dL [facility] CREATININE 0.90 0.5 - 1.5 mg/dL [facility] GLUCOSE 102(H) 70 - 99 mg/dL [facility] ALBUMIN 4.1 3.9 - 4.8 g/dL [facility] TOTAL PROTEIN 7.2 6.5 - 8.0 g/dL [facility] CALCIUM 9.6 8.4 - 10.3 mg/dL [facility] ALKALINE PHOSPHATASE 117 39 - 117 U/L [facility] TOTAL BILIRUBIN 0.6 0.0 - 1.2 mg/dL [facility] AST 44(H) 0 - 37 U/L [facility] ALT 47(H) 0 - 40 U/L [facility] GLOBULIN 3.1 1 - 4.8 g/dL [facility] EGFR 89 >59 mL/min/1.7 3m2 [facility] Comment:Estimated glomerular filtration rate calculated using the CKD-EPI refit equation. ANION GAP 17 10 - 20 mmol/L [facility] Blood 04/13/2024 10:1 2 AM EST 04/13/2024 10:14 AM EST us Joellen Kennedy MD LAB BLOOD ORDERABLES Fin al Result Performing Organization Address City/State/[facility] Co de Phone Number [facility] [address] [place], [place] [phone] from Last 3 Months or Most Recently Relevant to Health Maintenance Insurance [employer] HMO REPLACEMENT [facility] MEDICARE HMO REPLACEMENT [address] [place] [address] MEDICARE HMO REPLACEMENT [facility] MEDICARE HMO REPLACEMENT MEDICARE HMO REPLACEMENT MEDICARE HMO REPLACEMENT MEDICARE HMO REPLACEMENT [employer] HMO REPLACEMENT Care Teams Warning Analyst Relationship Specialty Start Date End Date Ricardo Vasquez MD [address] [place] [address] Dr SALAS [address] [place] [id number] PCP - General Internal Medicine 08/13/17 Additional Source Comments The information contained in this document represents components of the legal health record. It is not the complete legal health record.[facility]
--- OUTSIDE RECORDS SUMMARY | 2024-12-10 09:40 | XMS_ITS | Patient Health Record ---
Author Organization [facility] Address [address] [place] [address] Care Team Providers Care Drafter (Cad) Electronic Name Role Phone Pedro (RETIRED) Ricardo COLEMAN Primary Care Provider Unavailable Mohit Vasquez Unavailable [phone] Allergies Allergen (clinical drug ingredient) Drug/Non Drug Allergy documented on EMR Reaction Allergy Type Onset Date Status niacin Niacin Unknown Drug Allergy Active Reason For Referral No Information Medications Medication SIG (Take, Route, Frequency, Duration) Notes Start Date End Date Status Fluocinonide 0.05 % External; Duration: 30 Active Albuterol Sulfate HFA 108 (90 Base) MCG/ACT Inhalation; Duration: 30 Active guaiFENesin-Codeine 100-10 MG/5ML TAKE 10 ML ORALLY EVERY 4 TO 6 HOURS NEEDED FOR PERSISTANT COUGH FOR 30 DAYS Oral; Duration: 30 Active Metoprolol Succinate 25 MG 1 capsule Ora lly Once a day Active Allopurinol 300 MG 1 tablet Orally Once a day Active Gemfibrozil 600 MG as directed Orally o nce a day Active Levothyroxine Sodium 150 MCG 1 tablet in the morning on an empty stomach Orally Once a day Active ZyrTEC Allergy 10 MG 1 tablet Orally Onc e a day; Duration: 30 day(s) Active Omeprazole 40 MG 1 Orally Twice a day before breakfast and before the evening meal; Duration: 90 days 01/27/2023 Active Famotidine 40 MG 1 tablet Orally Once a day Unknown Immunizations Vaccine Route Administration Date Status Comme nts Influenza Unknown 10/17/2020 Administered Influenza Unknown 08/02/2019 Refused Problems Problem Type SNOMED Code ICD Code Onset Dates Problem Status W/U Status Risk Notes Problem Screening for malignant neoplasm of colon (353380013) Encounter for screening for malignant neoplasm of colon (Z12.11) Active confirmed Problem Gastroesophageal reflux disease with esophagitis (976326745) Gastroesophageal reflux disease with esophagitis (K21.0) Active confirmed Problem Gastroesophageal reflux disease without esophagitis (076895298) Gastroesophageal reflux disease without esophagitis (K21.9) Active confirmed Problem Gastric polyp (80316825) Gastric polyp (K31.7) Active confirmed Problem Hiatal hernia (31770723) Hiatal hernia (K44.9) Active confirmed Problem Esophagitis (43467035) Esophagitis (K20.9) Active confirmed Problem Barium swallow abnormal (942154714) Abnormal barium swallow (R93.3) Active confirmed Problem Esophageal reflux finding (439604849) Gastroesophageal reflux (K21.9) Active confirmed Problem Diverticulosis of colon (685870777) Diverticulosis of colon (K57.30) Active confirmed Problem Cough (finding) (38568639) Cough, unspecified type (R05.9) Active confirmed Plan Of Treatment Future Test Test Name Order Date UPPER GI ENDOSCOPY 05/15/2015 COLONOSCOPY 08/02/2019 UPPER GI ENDOSCOPY 11/15/2020 COLONOSCOPY 11/15/2020 Insurance Providers Payer Name Payer Address Payer Phone Subscriber Number Group Number Insured Name Patient Relationship to Insured Coverage Start Date Coverage End Date [facility] [address] [place] [phone] [id number] GROVER GRANT Self - patient is the insured Medical (General) History Medical History History ICD Code GERD--EGD 08/2009--moderate s ized HH, no esophagitis--positive 24 hour pH study off PPI's Colonoscopy 08/2009-neg except for an inf lammatory polyp Denies [place],DM,CVA,Lung disease,renal dise ase Bilateral hearing aids Hypothyroidism [...]
--- OUTSIDE RECORDS SUMMARY | 2024-12-10 09:40 | XMS_ITS | Data Portability ---
Author Organization [place] [facility] Address [address] [address] Assessment No assessment recorded. Plan of Treatment Reminders Order Date Submit Date Provider Last Modified By Organization Details Last Modified Time Details Appointments None record ed. Lab None record ed. Referral None record ed. Procedures None record ed. Surgeries None record ed. Imaging None record ed. Medication Orders None record ed. Patient TargetsNo targets recorded. Patient InstructionsNo instructions recorded. Reason for Referral None Reported. Problems Name Problem SNOMED Code Status Onset Date Resolution Date Notes Provider Name and Address Organization Details Recorded Time Sensorine ural hearing loss of bilateral ears 170204051 Active 2014 Sensorineu ral HL, bilateral; Note: Date Diagnosed: 12/19/2013 11:27 AM (389.18) ; Start Date : 12/19/2013 Sensorine ural hearing loss, bilateral; Note: Date Diagnosed: 12/18/2014 9:31 AM (H90.3) Not Available [facility] 4 02:53:38 Problem Notes None recorded. Medical Equipment None Reported. Medications Name Sig Start Date Stop Date Status Note LastModified by Organization Details LastModified Time gemfibrozil 600 mg tablet TAKE 1 TABLET BY MOUTH ONCE A DAY active Not Available Not Available No t Available levothyroxin e 150 mcg tablet TAKE 1 TABLET BY MOUTH EVERY DAY active Not Available Not Available No t Available omeprazole 20 mg capsule,nadia yed release TAKE 1 CAPSULE BY MOUTH TWICE A DAY DIRECTED active Not Available Not Available No t Available codeine 10 mg-guaifenes in 100 mg/5 mL oral liquid TAKE 10 ML ORALLY EVERY 4 TO 6 HOURS NEEDED FOR PERSISTANT COUGH FOR 30 DAYS active Not Available Not Available No t Available allopurinol 300 mg tablet TAKE 1 TABLET (300MG TOTAL) BY MOUTH EVERY DAY active Not Available Not Available No t Available metoprolol succinate ER 25 mg tablet,exten ded release 24 hr TAKE 1 TABLET BY MOUTH EVERY DAY IN THE MORNING DIRECTED active Not Available Not Available No t Available albuterol sulfate HFA 90 mcg/actuatio n aerosol inhaler active Not Available Not Available Not Available naproxen 500 mg tablet TAKE 1 TABLET BY MOUTH TWICE DAILY FOR PAIN. active Not Available Not Available No t Available amoxicillin 875 mg-potassium clavulanate 125 mg tablet TAKE 1 TABLET BY MOUTH TWICE DAILY UNTIL ALL TAKEN. active Not Available Not Available N ot Available Breztri Aerosphere 160 mcg-9mcg-4.8 mcg/actuatio n HFA aerosol inhaler active Not Available Not Available Not Available Vitals None Recorded Social History None recorded. Functional Status None recorded. Mental Status None recorded. Family History Nothing Reported. Medical History No medical history recorded. Past Encounters Encounter ID Performer Location Encounter Start Date Encounter Closed Date Diagnosis/Indication Diagnosis SNOMED-CT Code Diagnosis ICD10 Code Diagnosis IMO Codes Diagnosis Note [id number] [address] [facility] - [facility] [address] [facility] [address] [place] [address] 09/05/2024 14:19:43 09/06/2024 22:39:10 Sensorineural hearing loss of bilateral ears 241817984 H90.3 Health Concerns Section Related Observation LastModified by Organization Aric ls LastModified Time None Recorded Concern Status LastModified by Organization Details LastModified Time None Recorded Advance Directives Directive None Recorded Payers Insurance Date Sequence Insurance Name Policy Number Policy Marina Covered Member ID Marina Member ID Guarantor Name 11/20/2024 1 [facility] [id number] Jermaine Stiles [id number] Jermaine Stiles
== END 2024-12-10 09:38 | disposition home or self-care (01) ==
LOC: HO.CT 09:37
PROVIDERS: PCP Student in an Organized Health Care Education/Training Program; Visit Provider Internal Medicine
DX: J84.10 Pulmonary fibrosis, unspecified (principal); R05.9 Cough, unspecified; J98.4 Other disorders of lung
CPT/HCPCS: 71250

== ENCOUNTER → 2024-12-10 09:39 | Outpatient (BNV) | payer MEDICARE, SELFPAY | PROVIDERS: PCP Student in an Organized Health Care Education/Training Program; Visit Provider Radiology Diagnostic Radiology | DX: J84.10 Pulmonary fibrosis, unspecified (principal) | CPT/HCPCS: 71250 ==

== ENCOUNTER 2024-12-28 09:45 | Outpatient (AMB) | payer MEDICARE, SELFPAY ==
--- NOTE | 2024-12-28 09:54 | MHC.OFFVIS ---
Vital Signs 12/28/24 10:05 Height 5 ft 7 in Weight 223 lb 12.307 oz BMI 35.0 BP 110/70 Blood Pressure Location Lt brachial Position Sitting Pulse 79 Pulse Source Pulse Oximeter Pulse Oximetry (%) 96 Oxygen Delivery Method Room Air Intake Visit Reasons: COPD Intake Note: pt is here for follow up and have a ct scan follow up, he notices that his short of breath does seem to be progressing, he has to sit after one dance of dancing, constantly clearing the throat, but has always been this way with a slight cough. please refill cough syrup Odd Ticket Clerk Required: No Flame Annealing Machine Setter: Flame Annealing Machine Setter offered & declined Allergies niacin (NIACIN) Allergy (Intermediate, Verified 12/28/24 10:23) RASH, strange sensation/overheats Medication List - Last Reconciled 12/28/24 by Yasir Womack MD albuterol sulfate 90 mcg/actuation 2 puffs inhalation Q4-6H PRN allopurinol 1 tab PO DAILY atorvastatin (Lipitor) 20 mg PO BEDTIME 90 days zvixdotblt-mllpktbo-shewwxvvej 160-9-4.8 mcg/actuation (Breztri Aerosphere) inhalations inhalation cetirizine (Allergy Relief (cetirizine)) 10 mg PO DAILY codeine-guaifenesin 10-100 mg/5 mL 10 mL PO Q4-6H PRN 30 days gemfibrozil mg PO levothyroxine 1 tab PO DAILY metoprolol succinate ER 1 tab PO DAILY omeprazole 20 mg PO BID PRN Do you need a note to return to daycare/school/sports/work: No HPI HPI COPD: Details: 74 years old gentleman comes after 4 months for his routine pulmonary follow-up. He has had no acute exacerbation in the last 4 months. His main complaint is cough which is worse at night. Sometimes the cough is more like barking sound. He is using safe Tussin 2 tsp b.i.d. during the daytime, and guaifenesin-codeine syrup at night. In spite of bouts of cough he does get good sleep at night. His shortness of breath is not any worse than before. He is going to have total extraction of his upper teeth and then replaced with dentures. His dentist has told him that his upper teeth or damage due to chronic reflux problems. He is using omeprazole 20 mg once a day but only p.r.n.. [facility] Medical History Restrictive lung disease COVID-19 Cough Cough Hiatal hernia Anxiety On beta gabe at home History of kidney stones Arthritis Gout Hyperlipidemia Hypothyroidism Bilateral hearing loss GERD (gastroesophageal reflux disease) Surgical History Hx of colonoscopy (~12/17/20) History of nasal surgery History of eye surgery History of rectal surgery Hx laparoscopic cholecystectomy History of esophagogastroduodenoscopy (EGD) Social History Housing: House Alcohol intake: current Alcohol intake frequency: holidays/special occasions only Patient Tobacco Use Status: Never used Tobacco e-Cigarette/Vaping Use: Never Used Second Hand Smoke Exposure: No service: No Current occupational status: employed and retired Current occupation: [employer] for [employer] Review of Systems Const All systems reviewed & are unremarkable except as noted in HPI and below Eyes Reports no additional complaints ENT Reports nasal congestion (Mild off and) and Reports nasal discharge (Off and on resulting in cough) Card Denies chest pain, Denies irregular heart rhythm and Denies leg edema Resp Reports as per HPI GI Denies abdominal pain and Denies heartburn Reports no additional complaints Musc Denies myalgias, Denies arthralgias and Denies joint swelling Skin/Breast Denies rash Neuro Denies seizure-like activity Psych Reports no additional complaints Endo Denies heat intolerance Steven/Lymph Denies easy bruising Aller/Immun Denies seasonal rhinorrhea Physical Exam Vital Signs: Last Vital Signs Pulse 79 12/28/24 10:05 BP 110/70 12/28/24 10:05 Pulse Ox 96 12/28/24 10:05 Oxygen Delivery Method Room Air 12/28/24 10:05 BMI result Body Mass Index 35.0 Const General: healthy appearing (Except for being overweight), comfortable, no acute distress, alert and awake Orientation/consciousness: patient oriented x3 HEENT Head: Yes normal to inspection General nose exam: No nasal polyps present and No nasal discharge present Face and sinus: Yes sinuses nontender Mouth: oropharynx normal Throat: Yes posterior oropharynx normal Eyes General: appearance normal, both eyes and all related structures Neck Neck: Yes normal visual inspection, Yes no lymphadenopathy, Yes trachea midline and Yes no JVD Thyroid: Thyroid normal Chest Chest palpation & inspection: normal inspection of the chest, normal palpation of entire chest wall and no tenderness Resp Other: Percussion note is resonant, breath sounds are decreased over the basilar areas. No wheezes . But has a few inspiratory crepitations over the basilar areas especially on left base. Cardio Palpation: normal PMI Rate: regular rate Rhythm: regular rhythm Heart sounds: no gallops and no murmurs Peripheral pulses: Peripheral pulses 2+ throughout GI Palpation (GI): Soft to palpation, nontender, No hepatosplenomegaly present, no masses and Other GI palpation findings present (Abdomen is obese and protuberant) Auscultation: normal bowel sounds Back/Spine/Pelvis Thoracic/Lumbar Spine: thoracic and lumbar spine normal to inspection Skin General skin exam: no rashes or lesions noted Neuro General: patient oriented x3 and no focal motor deficits Cranial nerves: Yes CN's II-XII intact bilaterally Extrem General: Yes normal to inspection, Yes no clubbing, cyanosis or edema and Yes no calf tenderness Psych Appearance: grossly normal and well kempt Speech and movement: Normal speech and movement present Assessment & Plan Assessment & Plan (1) Pulmonary fibrosis: Comment: PATIENT HAS BILATERAL INTERSTITIAL LUNG DISEASE/PULMONARY FIBROSIS WITH HONEYCOMBING, IN UPPER LOBES WELL BASILAR AREAS, THIS MAY BE AFTER COVID INFECTION OR HE MAY HAVE HAD SOME DEGREE OF FIBROSIS EVEN BEFORE. THE LAST CT SCAN OF THE CHEST ON 12/10/2023, SHOWED SLIGHT INCREASE IN THE PULMONARY FIBROSIS PROCESS MAIN COMPLAINT IS COUGH . TODAY I DID NOTICE THAT HIS O2 SAT, DROPPED TO 88% AFTER WALKING 4-5 MINUTES. RECENT PULMONARY FUNCTION TEST ALSO SHOWS DECREASE IN FVC WELL TLC. Code(s): J84.10 - Pulmonary fibrosis, unspecified Category: Medical Plan: Continue Breztri arrow Luann 1 puff b.i.d. Albuterol HFA 2 puffs Q 6 hours only p.r.n. (2) Restrictive lung disease: Comment: PER PULMONARY FUNCTION TEST HE HAS MODERATELY SEVERE RESTRICTIVE PULMONARY DISORDER . THIS IS PARTLY DUE TO INTERSTITIAL LUNG DISEASE AND PARTLY DUE TO ABDOMINAL OBESITY. Code(s): J98.4 - Other disorders of lung Category: Medical Plan: Again discussed about doing deep breathing. Exercises 2 to 3 times a day Also try to lose some weight, which has to be done mainly by controlling the diet. (3) Cough: Comment: HE HAS CHRONIC COUGH PRIMARILY RELATED TO PULMONARY FIBROSIS, ALSO MAY BE AGGRAVATED BY GERD, AND UPPER AIRWAY ALLERGIES. COUGH IS RELATIVELY CONTROLLED AND STABLE AT THIS TIME. Code(s): R05.9 - Cough, unspecified Category: Medical Qualifiers: Cough type: chronic Qualified Code(s): R05.3 - Chronic cough Plan: SAFE TUSSIN 2 TSP T.I.D. DURING THE DAYTIME GUAIFENESIN-CODEINE 100-10 SYRUP 2 TSP AT NIGHTTIME (4) Dyspnea on exertion: Comment: It is mild and consistent with obesity as well as minimal pulmonary fibrosis, Encouraged to do deep breathing exercises and must try to lose some weight. Code(s): R06.00 - Dyspnea, unspecified Category: Medical Plan: DO DEEP BREATHING EXERCISES 3 TIMES A DAY TRY TO WALK AROUND DAILY AND STAY ACTIVE. Coding Level of Care Code Est Pt Level 3 (49635) Diagnoses Pulmonary fibrosis J84.10 Restrictive lung disease J98.4 Chronic cough R05.3 Cough type: chronic Dyspnea on exertion R06.00
[2024-12-28 10:05] VITALS: BP 110/70; PULSE 79; O2SAT 96; BMI 35.0
--- OUTSIDE RECORDS SUMMARY | 2024-12-28 11:04 | XMS_ITS | Patient Health Record ---
Author Organization [facility] Address [address] [place] [address] Care Team Providers Care Tearoom Hostess Name Role Phone Pedro (RETIRED) Ricardo COLEMAN Primary Care Provider Unavailable Mohit Vasquez Unavailable [phone] Allergies Allergen (clinical drug ingredient) Drug/Non Drug [...] Problem Screening for malignant neoplasm of colon (142660419) Encounter for screening for malignant neoplasm of colon (Z12.11) Active confirmed Problem Gastroesophageal reflux disease with esophagitis (340690722) Gastroesophageal reflux disease with esophagitis (K21.0) Active confirmed Problem Gastroesophageal reflux disease without esophagitis (164733965) Gastroesophageal reflux disease without esophagitis (K21.9) Active confirmed Problem Gastric polyp (01876443) Gastric polyp (K31.7) Active confirmed Problem Hiatal hernia (23097707) Hiatal hernia (K44.9) Active confirmed Problem Esophagitis (59161813) Esophagitis (K20.9) Active confirmed Problem Barium swallow abnormal (887287983) Abnormal barium swallow (R93.3) Active confirmed Problem Esophageal reflux finding (405513282) Gastroesophageal reflux (K21.9) Active confirmed Problem Diverticulosis of colon (695152958) Diverticulosis of colon (K57.30) Active confirmed Problem Cough (finding) (24988579) Cough, unspecified type (R05.9) Active confirmed Plan Of Treatment Future Test Test Name Order Date UPPER GI ENDOSCOPY 05/15/2015 COLONOSCOPY 08/02/2019 UPPER GI ENDOSCOPY 11/15/2020 COLONOSCOPY 11/15/2020 Insurance Providers Payer Name Payer Address Payer Phone Subscriber Number Group Number Insured Name Patient Relationship to Insured Coverage Start Date Coverage End Date [facility] [address] [place] [address] [phone] [id number] GROVER GRANT Self - patient is the insured Medical (General) History Medical History History ICD Code GERD--EGD 08/2009--moderate s ized HH, no esophagitis--positive 24 hour pH study off PPI's Colonoscopy 08/2009-neg except for an inf lammatory polyp Denies CT,DM,CVA,Lung disease,renal dise ase Bilateral hearing aids Hypothyroidism [...]
--- OUTSIDE RECORDS SUMMARY | 2024-12-28 11:04 | XMS_ITS | Patient Health Record ---
Author Organization [facility] Address [address] [facility] [place] [address] Care Team Providers Care Solution Spec Name Role Phone Ricardo Vasquez MD Primary Care Provider UnavailMaximus Arias Unavailable [phone] Allergies Allergen (clinical drug ingredient) Drug/Non Drug [...] Status Risk Notes Problem Pain in limb (13201117) Pain in right toe(s) (M79.674) Active confirmed Problem Tinea pedis (2739716) Tinea pedis (B35.3) Active confirmed Plan Of Treatment Pending Test Test Name Order Date [id number] Plate 08/17/2013 [id number] 08/17/2014 96673- Debride <25 sq cm 10/11/2014 39794- Debride <25 sq cm 07/21/2012 99543- Debride <25 sq cm 03/23/2014 [id number] SKIN/TISSUE 09/06/2014 08520 I&D ABSCESS- SIMPLE,SINGLE 015 [id number] I&D ABSCESS- SIMPLE,SINGLE 013 [id number] I&D ABSCESS- SIMPLE,SINGLE 015 Insurance Providers Payer Name Payer Address Payer Phone Subscriber Number Group Number Insured Name Patient Relationship to Insured Coverage Start Date Coverage End Date [facility] [address] [facility] [place] [address] [id number] Jermaine Stiles Self - patient is the insured Medical (General) History Medical History History ICD Code cholesterol Hiatal hernia reflux thyroid disorder Surgical History Surgery Date(Month/Year) gall bladder eye surgery pelvis
--- OUTSIDE RECORDS SUMMARY | 2024-12-28 11:04 | XMS_ITS | Clinical Summary ---
Author Organization [facility] Address [address] [place] [phone] Phone Care Team Providers Care Media Relations Specialist Name Role Phone Ricardo Vasquez MD [...] Continue wearing hearing aides & f/u with environmental educator Assessment & Plan (05/02/2021 10:29 AM EDT): Continue wearing hearing aides & f/u with environmental educator Assessment & Plan (10/29/2020 10:17 AM EDT): Continue wearing hearing aides & f/u with environmental educator Assessment & Plan (04/30/2020 10:23 AM EDT): Continue wearing hearing aides & f/u with environmental educator Assessment & Plan (09/18/2018 3:16 PM EDT): [...] safety and efficacy of therapy-standing orders in the medical center. Call with questions or problems in the interim. Assessment & Plan (04/10/2023 11:10 AM EST): Clinically and laboratory hernández stable except for elevated BUN that should be monitored and contoured by proper hydration. Carefully continue current dose of allopurinol. Proper hydration. Low purine diet. Return in12 months with prior blood work monitoring safety and efficacy of therapy-standing orders in the medical center. Call with questions or problems in the interim. Assessment & Plan (05/07/2021 9:25 AM EDT): Get serum uric acid level today. Carefully continue current dose of allopurinol. Proper hydration. Low purine diet. Return in 6 months with prior blood work monitoring safety and efficacy of therapy-standing orders in the medical center. Call with questions or problems in the interim. Assessment & Plan (11/06/2020 12:06 PM EDT): Get monitoring labs today. Carefully continue current dose of allopurinol. Proper hydration. Low purine diet. Get yearly influenza vaccine by November 2020. Return in 6 months with prior blood work monitoring safety and efficacy of therapy-standing orders in the medical center. Call with questions or problems in the interim. Assessment & Plan (05/06/2020 3:23 PM EDT): Carefully continue current dose of allopurinol. Proper hydration. Low purine diet. Return in 6 months with prior blood work monitoring safety and efficacy of therapy-standing orders in the medical center. Call with questions or problems in the [...] on patient's age to complete this topic IPV VACCINES Aged Out No longer eligi ble [...] Date/Time Associated Diagnosis Comments COMPREHENSIVE METABOLIC PANEL (CMP) Routine 04/13/2024 10:12 AM EST Gout, arthritis On allopurinol therapy from Last 3 Months or Most Recently Relevant to Health Maintenance Results * (ABNORMAL) Comprehensive metabolic panel (04/13/2024 10:12 AM EST) SODIUM 137 133 - 146 mmol/L [facility] POTASSIUM 4.6 3.3 - 5.1 mmol/L [facility] CHLORIDE 102 96 - 108 mmol/L [facility] CO2 23 21 - 35 mmol/L [facility] BUN 24(H) 6 - 19 mg/dL [facility] CREATININE 0.90 0.5 - 1.5 mg/dL [facility] GLUCOSE 102(H) 70 - 99 mg/dL [facility] ALBUMIN 4.1 3.9 - 4.8 g/dL [facility] TOTAL PROTEIN 7.2 6.5 - 8.0 g/dL [facility] CALCIUM 9.6 8.4 - 10.3 mg/dL [facility] ALKALINE PHOSPHATASE 117 39 - 117 U/L [facility] TOTAL BILIRUBIN 0.6 0.0 - 1.2 mg/dL [facility] AST 44(H) 0 - 37 U/L [facility] ALT 47(H) 0 - 40 U/L [facility] GLOBULIN 3.1 1 - 4.8 g/dL [facility] EGFR 89 >59 mL/min/1.7 3m2 [facility] Comment:Estimated glomerular filtration rate calculated using the CKD-EPI refit equation. ANION GAP 17 10 - 20 mmol/L [facility] Blood 04/13/2024 10:1 2 AM EST 04/13/2024 10:14 AM EST us Joellen Kennedy MD LAB BLOOD BKR ORDERABLES Final Result [facility] [address] [place], [place] [id number] from Last 3 Months or Most Recently Relevant to Health Maintenance Insurance [employer] H[employer] REPLACEMENT [facility] MEDICARE HMO REPLACEMENT [employer] HMO REPLACEMENT [employer] HMO REPLACEMENT [facility] MEDICARE HMO REPLACEMENT [address] [address] MEDICARE HMO REPLACEMENT MEDICARE HMO REPLACEMENT MEDICARE HMO REPLACEMENT [employer] H[employer] REPLACEMENT Care Teams Media Relations Specialist Relationship Specialty Start Date End Date Ricardo Vasquez MD [address] [place] [address] Dr SALAS [address] [place] [phone] PCP - General Internal Medicine 08/13/17 Additional Source Comments The information contained in this document represents components of the legal health record. It is not the complete legal health record.[facility]
== END 2024-12-28 10:42 | disposition home or self-care (01) ==
PROVIDERS: PCP Student in an Organized Health Care Education/Training Program; Visit Provider Internal Medicine
DX: J84.10 Pulmonary fibrosis, unspecified (principal); J98.4 Other disorders of lung; R05.3 Chronic cough; R06.00 Dyspnea, unspecified
CPT/HCPCS: 99213

== ENCOUNTER → 2024-12-28 09:45 | Outpatient (BNVA) | payer MEDICARE, SELFPAY | PROVIDERS: PCP Student in an Organized Health Care Education/Training Program; Visit Provider Internal Medicine | DX: J84.10 Pulmonary fibrosis, unspecified (principal); J98.4 Other disorders of lung; R05.3 Chronic cough; R06.00 Dyspnea, unspecified; U09.9 Post COVID-19 condition, unspecified | CPT/HCPCS: 99212 ==

== ENCOUNTER → 2025-01-20 09:18 | Outpatient (BNVA) | payer SELFPAY | PROVIDERS: PCP Student in an Organized Health Care Education/Training Program; Visit Provider Internal Medicine | DX: Z02.79 Encounter for issue of other medical certificate (principal) ==

== ENCOUNTER 2025-02-07 09:04 | Outpatient (AMB) | payer MEDICARE, SELFPAY ==
--- NOTE | 2025-02-07 09:10 | MHC.PC.OV ---
Vital Signs 02/07/25 09:11 Height 5 ft 7 in Weight 224 lb BMI 35.1 BP 122/74 Blood Pressure Location Lt brachial Position Sitting Respiration 16 Pulse 74 Pulse Source Pulse Oximeter Temp 97.1 F Temp Source Temporal Artery Scan Pulse Oximetry (%) 97 Oxygen Delivery Method Room Air Intake Visit Reasons: EST Care Routine Client Insights Consultant Required: No Accompanied by: Spouse Allergies niacin (NIACIN) Allergy (Intermediate, Verified 02/07/25 09:11) RASH, strange sensation/overheats Medication List - Last Reconciled 02/07/25 by Clarence De La O MD albuterol sulfate 90 mcg/actuation 2 puffs inhalation Q4-6H PRN allopurinol 1 tab PO DAILY atorvastatin (Lipitor) 20 mg PO BEDTIME 90 days jhgsivuzkr-fzrqafgq-pgwnhunrek 160-9-4.8 mcg/actuation (Breztri Aerosphere) inhalations inhalation cetirizine (Allergy Relief (cetirizine)) 10 mg PO DAILY codeine-guaifenesin 10-100 mg/5 mL 10 mL PO Q4-6H PRN 30 days gemfibrozil mg PO .QD levothyroxine 1 tab PO DAILY metoprolol succinate ER 1 tab PO DAILY omeprazole 20 mg PO BID Tobacco use date assessed: 10/27/24 Fall risk assessment: No Falls in past year Last assessed Fall Risk: 02/07/25 HPI HPI Comments History of Present Illness Details History of Present Illness The patient is a 74 year old male presenting for management of his chronic cough and other chronic conditions. He has a history of pulmonary fibrosis, which contributes to a significant chronic cough. The cough reportedly worsened after having COVID, which led to his diagnosis of lung scarring by his specialist, Dr. Pichardo. His cough is managed with codeine guaifenesin, which he has only been taking at night. For his pulmonary fibrosis, he uses an albuterol inhaler and a Breztri inhaler once daily, as directed by his supervisor drilling and shooting, Dr. Womack. He was advised by Dr. Lincoln to perform deep breathing exercises and use a spirometer. The patient also has a history of a hiatal hernia and associated acid reflux, which is thought to contribute to his cough. He takes omeprazole 20 mg twice a day, typically 20-30 minutes before his evening meal. A post-nasal drip from allergies is another potential contributor to the cough, for which he takes cetirizine. His other chronic conditions include hyperlipidemia, with recent labs showing total cholesterol of 210, LDL of 108, and triglycerides of 312. He is on atorvastatin and another medication for cholesterol transcribed as gabafebrazole. He is also prediabetic with an A1c of 5.9. He has a history of hypothyroidism, managed with levothyroxine, and his thyroid function was good on labs from October with a TSH of 0.39. He takes metoprolol succinate for blood pressure, which was initiated due to differing blood pressure readings in each arm. His current blood pressure reading is 122/74 mmHg. Additional history includes gout, managed with allopurinol, and stable stage 3a chronic kidney disease for over three years with a creatinine of 1.22. 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 Medical History: - Pulmonary fibrosis, diagnosed after a bout with COVID. - Chronic cough - Hiatal hernia - Gastroesophageal reflux disease (GERD) - Allergies - Gout - Mixed hyperlipidemia - Hypothyroidism - Hypertension, treated due to differential blood pressure readings in each arm. - Prediabetes - Stage 3a Chronic Kidney Disease, stable for over 3 years. Medications: - Codeine-guaifenesin solution for chronic cough, taken at night. - Albuterol inhaler for pulmonary fibrosis. - Allopurinol for gout. - Atorvastatin 20mg for hypercholesterolemia. - Breztri inhaler for pulmonary fibrosis, taken once daily. - Cetirizine for allergies and postnasal drip. - Gabafebrazole for hypercholesterolemia. - Levothyroxine for hypothyroidism. - Metoprolol succinate once daily for blood pressure. - Omeprazole 20 mg twice daily for acid reflux and hiatal hernia. Diagnostic Results: - Labs: Recent blood work revealed a total cholesterol of 210, LDL of 108, and triglycerides of 312. - Labs: His A1c is 5.9%. - Labs: Thyroid function test in October showed a TSH of 0.39. - Labs: His creatinine is 1.22. - Labs: Past results have shown mild proteinuria. 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 - Living Situation: He lives with his . - Functional Status: He reports being sedentary since half-way and does not engage in regular walking. - Exercise: Activity is limited to yard work in good weather and walking with a cart in grocery stores. - Nutrition: A few years ago, he lost 22 pounds with portion control and home-cooked meals. - Nutrition: He reports low intake of rice and pasta, and snacks on zero-sugar yogurt with fruit. - Nutrition: He eats Urdu muffins for breakfast PFSH Medical History (Updated 02/07/25 @ 09:51 by Clarence De La O MD) Herpes labialis Prediabetes CKD stage 3a, GFR 45-59 ml/min Restrictive lung disease COVID-19 Cough Cough Hiatal hernia Anxiety On beta gabe at home History of kidney stones Arthritis Gout Hyperlipidemia Hypothyroidism Bilateral hearing loss GERD (gastroesophageal reflux disease) Surgical History Hx of colonoscopy (~12/17/20) History of nasal surgery History of eye surgery History of rectal surgery Hx laparoscopic cholecystectomy History of esophagogastroduodenoscopy (EGD) Social History Housing: House Alcohol intake: current Alcohol intake frequency: holidays/special occasions only Patient Tobacco Use Status: Never used Tobacco e-Cigarette/Vaping Use: Never Used Second Hand Smoke Exposure: No service: No Current occupational status: employed and retired Current occupation: [employer] for [employer] Questionnaire Thrive Questionnaire Date Thrive assessed: 10/27/24 AUDIT C Alcohol Use Questionnaire (AUDIT-C) 1. How often do you have a drink containing alcohol?: Monthly or less 2. How many drinks containing alcohol do you have on a typical day when you are drinking?: 1 or 2 3. How often do you have six or more drinks on one occasion?: Never Total Score: 1 WILLA-7 AMB Questionnaire WILLA-7 Date WILLA - 7 assessed: 10/27/24 Source: Developed by Drs. Mohit Alvarado, Yady Neff, Danielito Lr and colleagues, with an educational charan from [employer]. Review of Systems Narrative Review of Systems - Constitutional: Reports feeling tired and run down. - Respiratory: Reports a severe, chronic cough. - Gastrointestinal: Reports eructation following coughing episodes. - Allergic/Immunologic: Reports allergies and dust exposure in the home. All systems reviewed & are unremarkable except as reviewed in HPI and above Physical exam (Primary Care) Vital Signs: Last Vital Signs Temp 97.1 F 02/07/25 09:11 Pulse 74 02/07/25 09:11 Resp 16 02/07/25 09:11 BP 122/74 02/07/25 09:11 Pulse Ox 97 02/07/25 09:11 Oxygen Delivery Method Room Air 02/07/25 09:11 Care Plan Goal for BP management: At goal BMI result Body Mass Index 35.1 Tobacco/Smoking Status: Tobacco use Status Tobacco use date assessed 10/27/24 02/07/25 09:18 Patient Tobacco Use Status Never used Tobacco 02/07/25 09:18 e-Cigarette/Vaping Use Never Used 02/07/25 09:18 Thrive Assessment: Date of Thrive Assessment Date Thrive assessed 10/27/24 02/07/25 09:18 Narrative Physical Exam General: Alert and oriented, Well nourished, No acute distress, Reports feeling tired and run down. Eye: Pupils are equal, round and reactive to light, Intact accommodation, Extraocular movements are intact, Normal conjunctiva, Vision unchanged. HENT: Normocephalic, Atraumatic, Tympanic membranes are clear, Normal hearing with hearing aids, Oral mucosa is moist, No pharyngeal erythema, Ear canals patent. Respiratory: Lungs CTA bilaterally, No wheeze, Respirations are non-labored, Chronic cough noted, Pulmonary fibrosis present. Cardiovascular: Regular rate, Regular rhythm, S1 auscultated, S2 auscultated, No murmur, Good pulses equal in all extremities, Normal peripheral perfusion, No edema, Blood pressure 122/74. Gastrointestinal: Soft, Non-tender, Non-distended, Normal bowel sounds, No organomegaly, Hiatal hernia present, Acid reflux noted. Musculoskeletal: Normal range of motion, Normal strength, No tenderness, No swelling, No deformity, Normal gait, Encouraged to increase physical activity. Integumentary: Warm, Dry, [place], Intact. Neurologic: Alert, Oriented, Normal sensory, Normal motor function, No focal defects, Cranial Nerves II-XII are grossly intact, Normal deep tendon reflexes. Psychiatric: Cooperative, Appropriate mood & affect, Normal judgment. Coding Level of Care Code Est Pt Level 4 (84247) Add On Problem Visit Only Diagnoses Chronic cough R05.3 Cough type: chronic Pulmonary fibrosis J84.10 Gastroesophageal reflux disease, unspecified whether esophagitis present K21.9 Esophagitis presence: esophagitis presence not specified Hyperlipidemia, unspecified hyperlipidemia type E78.5 Hyperlipidemia type: unspecified Prediabetes R73.03 CKD stage 3a, GFR 45-59 ml/min N18.31 Gout, unspecified cause, unspecified chronicity, unspecified site M10.9 Gout site: unspecified site Gout etiology: unspecified cause Chronicity: unspecified Herpes labialis B00.1 Assessment & Plan Assessment & Plan (1) Cough: Comment: - The cough is considered multifactorial, related to pulmonary fibrosis, GERD, and postnasal drip. - Continue using codeine-guaifenesin at night for cough suppression. - May take an additional dose of codeine-guaifenesin in the morning for severe symptoms, with the caution that he should not drive, and the medication is addictive. Code(s): R05.9 - Cough, unspecified Category: Medical Qualifiers: Cough type: chronic Qualified Code(s): R05.3 - Chronic cough (2) Pulmonary fibrosis: Comment: - Continue albuterol inhaler to help open airways. - Continue Breztri inhaler once daily as directed by his supervisor drilling and shooting. - Continue deep breathing exercises and use of an incentive spirometer to help open lung spaces. Code(s): J84.10 - Pulmonary fibrosis, unspecified Category: Medical (3) GERD (gastroesophageal reflux disease): Comment: - Continue omeprazole 20 mg twice daily. - Instructed to take omeprazole 45-60 minutes before meals on an empty stomach for improved efficacy. - Recommended increasing humidification in the bedroom to alleviate dryness. Code(s): K21.9 - Gastro-esophageal reflux disease without esophagitis Category: Medical Qualifiers: Esophagitis presence: esophagitis presence not specified Qualified Code(s): K21.9 - Gastro-esophageal reflux disease without esophagitis (4) Hyperlipidemia: Comment: - Recent labs showed total cholesterol of 210, LDL of 108, and triglycerides of 312. - Continue atorvastatin and gabafebrazole as prescribed. - Extensive dietary counseling was provided, with recommendations to cut down on red meats, processed foods, fats, butters, and oils. Code(s): E78.5 - Hyperlipidemia, unspecified Category: Medical Qualifiers: Hyperlipidemia type: unspecified Qualified Code(s): E78.5 - Hyperlipidemia, unspecified (5) Prediabetes: Comment: - A1c is 5.9%. - Counseled on dietary modification, with a focus on reducing carbohydrates such as breads, pasta, and rice. - Advised to research diabetic and heart-healthy diets via resources like Diabetes.org. Code(s): R73.03 - Prediabetes Category: Medical (6) CKD stage 3a, GFR 45-59 ml/min: Comment: - The patient has a stable, long-standing history of stage 3a CKD with a creatinine of 1.22. - The condition is not acutely concerning. - A urinalysis will be ordered for monitoring. Code(s): N18.31 - Chronic kidney disease, stage 3a Category: Medical (7) Gout: Comment: - Continue Allopurinol for uric acid management. Code(s): M10.9 - Gout, unspecified Category: Medical Qualifiers: Gout site: unspecified site Gout etiology: unspecified cause Chronicity: unspecified Qualified Code(s): M10.9 - Gout, unspecified (8) Herpes labialis: Comment: - On lower lip, swill start on valacylovir 1gm TID for 7 days Code(s): B00.1 - Herpesviral vesicular dermatitis Category: Medical Plan: Health Maintenance: - Dietary counseling: The patient was advised to follow a heart-healthy and diabetic-friendly diet by reducing intake of red meat, carbohydrates (breads, pastas), processed foods, and fats to manage his hyperlipidemia and prediabetes. - Exercise counseling: Advised to increase physical activity to combat a sedentary lifestyle, with suggestions including home exercise equipment and a fitness tracking watch. - Pulmonary hygiene: Encouraged to continue deep breathing exercises and regular use of an incentive spirometer. - Kidney function monitoring: A urinalysis will be ordered to monitor his stable stage 3 chronic kidney disease. - Hearing: The patient has expensive hearing aids and has had a hearing test in the past. Patient was informed and verbally consented to the use of an ambient scribe for clinic note documentation during this visit. Plan I discussed the patient's overall health status, reassuring him that despite his chronic conditions, he is doing relatively well and is not falling apart. I reviewed the multifactorial nature of his chronic cough, explaining the roles of his pulmonary fibrosis, GERD, and postnasal drip, and outlined the management strategy for each. I strongly emphasized the need for significant lifestyle modifications to address his elevated cholesterol, triglycerides, and prediabetic status, detailing necessary changes in diet and physical activity. I explained that his sedentary lifestyle and abdominal fat can worsen his breathing, and that more structured exercise is needed. I also explained the importance of taking his omeprazole on an empty stomach, 45-60 minutes before a meal, to improve its effectiveness against acid reflux. I noted that his stage 3 kidney disease is a long-standing and stable condition, and we will monitor it with a urinalysis. The patient and his were receptive to the plan, and he agreed to the necessary lifestyle changes and will provide a urine sample today. Orders: Orders UA CC w/rflx Micro + Cult Today N18.31 - Chronic kidney disease, stage 3a Medications: New valacyclovir 1,000 mg PO TID 21 tabs 0RF Patient Instructions: - Take your acid reflux pill (omeprazole) about an hour before you eat in the morning and evening. Take it on an empty stomach. - You can use your cough syrup (codeine-guaifenesin) in the morning if your cough is severe, but do not drive after taking it as it can make you drowsy. - Use your breathing device with the ball (spirometer) several times a day to exercise your lungs. - To help your cholesterol and blood sugar, you need to make changes to your diet. Cut back on red meat. Also, limit foods like bread, pasta, candy, and other sweets. - You must increase your physical activity. Walking around the grocery store is not enough exercise. Consider getting a treadmill or elliptical for your home, or start a regular walking routine. - Look up information on diabetic diet and heart-healthy diet on websites like Diabetes.org to get meal ideas. - Please go to the lab to provide a urine sample today.
[2025-02-07 09:11] VITALS: BP 122/74; PULSE 74; RESP 16; TEMP 36.2; O2SAT 97; BMI 35.1
--- OUTSIDE RECORDS SUMMARY | 2025-02-07 09:42 | XMS_ITS | Patient Health Record ---
Author Organization [facility] Address [address] [facility] [place] [address] Care Team Providers Care Ophthalmologist Name Role Phone Ricardo Vasquez MD Primary Care Provider UnavailMaximus Arias Unavailable [phone] Allergies Allergen (clinical drug ingredient) Drug/Non Drug [...] Status Risk Notes Problem Pain in limb (36443813) Pain in right toe(s) (M79.674) Active confirmed Problem Tinea pedis (1195716) Tinea pedis (B35.3) Active confirmed Plan Of Treatment Pending Test Test Name Order Date [id number] Plate 08/17/2013 [id number] 08/17/2014 87907- Debride <25 sq cm 10/11/2014 45480- Debride <25 sq cm 07/21/2012 95386- Debride <25 sq cm 03/23/2014 [id number] SKIN/TISSUE 09/06/2014 84679 I&D ABSCESS- SIMPLE,SINGLE 015 [id number] I&D ABSCESS- SIMPLE,SINGLE 013 [id number] I&D ABSCESS- SIMPLE,SINGLE 015 Insurance Providers Payer Name Payer Address Payer Phone Subscriber Number Group Number Insured Name Patient Relationship to Insured Coverage Start Date Coverage End Date [facility] [address] [facility] [place] [address] [id number] Jermaine Stiles Self - patient is the insured Medical (General) History Medical History History ICD Code cholesterol Hiatal hernia reflux thyroid disorder Surgical History Surgery Date(Month/Year) gall bladder eye surgery pelvis
--- OUTSIDE RECORDS SUMMARY | 2025-02-07 09:42 | XMS_ITS | Data Portability ---
Author Organization [place] [facility], Allergy Address [address] [address] Assessment No assessment recorded. Plan of Treatment [...] Sensorine ural hearing loss of bilateral ears [id number] Active 2014 Sensorineu ral HL, bilateral; Note: Date Diagnosed: 12/19/2013 11:27 AM (389.18) ; Start Date : 12/19/2013 Sensorine ural hearing loss, bilateral; Note: Date Diagnosed: 12/18/2014 9:31 AM (H90.3) Not Available Critical access hospital 4 02:53:38 Problem Notes None recorded. Medical [...] ICD10 Code Diagnosis IMO Codes Diagnosis Note [id number] GEOVANNI ISRAEL STUART - [facility] 100 [facility] 100 [place] [address] 09/05/2024 14:19:43 09/06/2024 22:39:10 Sensorineural hearing loss of bilateral ears [id number] H90.3 Health Concerns Section Related Observation LastModified by Organization Aric ls LastModified Time None Recorded Concern Status LastModified by Organization Details LastModified Time None Recorded Advance Directives Directive None Recorded Payers Insurance Date Sequence Insurance Name Policy Number Policy Marina Covered Member ID Marina Member ID Guarantor Name 11/20/2024 1 [facility] [id number] Jermaine Stiles [id number] Jermaine Stiles
--- OUTSIDE RECORDS SUMMARY | 2025-02-07 09:42 | XMS_ITS | Patient Health Record ---
Author Organization [facility] Address [address] [place] [id number] Care Team Providers Care Telemarketing Representative Name Role Phone Pedro (RETIRED) Ricardo COLEMAN Primary Care Provider Unavailable Mohit Vasquez Unavailable [phone] Allergies Allergen (clinical drug ingredient) Drug/Non Drug Allergy documented on EMR Reaction Allergy Type Onset Date Status niacin Niacin Unknown Drug Allergy Active Reason For Referral No Information Medications Medication SIG (Take, Route, Frequency, Duration) Notes Start Date End Date Status Fluocinonide 0.05 % Solution External; Duration: 30 Activ e Albuterol Sulfate HFA 108 (90 Base) MCG/ACT Aerosol Solution Inhalation; Duration: 30 Act kwaku guaiFENesin-Codeine 100-10 MG/5ML Solution TAKE 10 ML ORALLY EVERY 4 TO 6 HOURS NEEDED FOR PERSISTANT COUGH FOR 30 DAYS Oral; Duration: 30 Active Metoprolol Succinate 25 MG Capsule ER 24 Hour Sprinkle 1 capsule Orally Once a day Active Allopurinol 300 MG Tablet 1 tablet Orall y Once a day Active Gemfibrozil 600 MG Tablet as directed Or ally once a day Active Levothyroxine Sodium 150 MCG Tablet 1 tablet in the morning on an empty stomach Orally Once a day Active ZyrTEC Allergy 10 MG Tablet 1 tablet Ora lly Once a day; Duration: 30 day(s) Active Omeprazole 40 MG Capsule Delayed Release 1 Orally Twice a day before breakfast and before the evening meal; Duration: 90 days 01/27/2023 Active Famotidine 40 MG Tablet 1 tablet Orally Once a day Unknown Immunizations Vaccine Route Administration Date Status Comme nts Influenza Unknown 08/02/2019 Refused Influenza Unknown 10/17/2020 Administered Social History Social History Additional Details Category Social Info Options Details Miscellaneous: Marital status: 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 nonsmoke r Very occasion EtOH. nonsmoke r Very occasional EtOH. nonsmo ker Very occasional EtOH. nonsmo ker Very occasional EtOH. nonsmo ker Very occasional EtOH. nonsmo ker Problems Problem Type SNOMED Code ICD Code Onset Dates Problem Status W/U Status Risk Notes Problem Screening for malignant neoplasm of colon (078131411) Encounter for screening for malignant neoplasm of colon (Z12.11) Active confirmed Problem Gastroesophageal reflux disease with esophagitis (164067090) Gastroesophageal reflux disease with esophagitis (K21.0) Active confirmed Problem Gastroesophageal reflux disease without esophagitis (131554880) Gastroesophageal reflux disease without esophagitis (K21.9) Active confirmed Problem Gastric polyp (41434666) Gastric polyp (K31.7) Active confirmed Problem Hiatal hernia (29669202) Hiatal hernia (K44.9) Active confirmed Problem Esophagitis (98513963) Esophagitis (K20.9) Active confirmed Problem Barium swallow abnormal (037301047) Abnormal barium swallow (R93.3) Active confirmed Problem Esophageal reflux finding (732383477) Gastroesophageal reflux (K21.9) Active confirmed Problem Diverticulosis of colon (749959403) Diverticulosis of colon (K57.30) Active confirmed Problem Cough (finding) (97585045) Cough, unspecified type (R05.9) Active confirmed Plan Of Treatment Future Test Test Name Order Date UPPER GI ENDOSCOPY 05/15/2015 COLONOSCOPY 08/02/2019 UPPER GI ENDOSCOPY 11/15/2020 COLONOSCOPY 11/15/2020 Insurance Providers Payer Name Payer Address Payer Phone Subscriber Number Group Number Insured Name Patient Relationship to Insured Coverage Start Date Coverage End Date [facility] [address] [place] [phone] [id number] GROVER GRANT Self - patient is the insured Medical (General) History Medical History History ICD Code GERD--EGD 08/2009--moderate s ized HH, no esophagitis--positive 24 hour pH study off PPI's Colonoscopy 08/2009-neg except for an inf lammatory polyp Denies AR,DM,CVA,Lung disease,renal dise ase Bilateral hearing aids Hypothyroidism [...]
--- OUTSIDE RECORDS SUMMARY | 2025-02-07 09:42 | XMS_ITS | Clinical Summary ---
Author Organization [facility] Address [address] [place] [id number] Phone Care Team Providers Care Physical Biochemist Name Role Phone Ricardo Vasquez MD Primary [...] Continue wearing hearing aides & f/u with screw machine setter Assessment & Plan (05/02/2021 10:29 AM EDT): Continue wearing hearing aides & f/u with screw machine setter Assessment & Plan (10/29/2020 10:17 AM EDT): Continue wearing hearing aides & f/u with screw machine setter Assessment & Plan (04/30/2020 10:23 AM EDT): Continue wearing hearing aides & f/u with screw machine setter Assessment & Plan (09/18/2018 3:16 PM EDT): [...] efficacy of therapy-standing orders in [facility]. Call with questions or problems in the interim. Assessment & Plan (04/10/2023 11:10 AM EST): Clinically and laboratory hernández stable except for elevated BUN that should be monitored and contoured by proper hydration. Carefully continue current dose of allopurinol. Proper hydration. Low purine diet. Return in12 months with prior blood work monitoring safety and efficacy of therapy-standing orders in [facility]. Call with questions or problems in the interim. Assessment & Plan (05/07/2021 9:25 AM EDT): Get serum uric acid level today. Carefully continue current dose of allopurinol. Proper hydration. Low purine diet. Return in 6 months with prior blood work monitoring safety and efficacy of therapy-standing orders in [facility]. Call with questions or problems in the interim. Assessment & Plan (11/06/2020 12:06 PM EDT): Get monitoring labs today. Carefully continue current dose of allopurinol. Proper hydration. Low purine diet. Get yearly influenza vaccine by November 2020. Return in 6 months with prior blood work monitoring safety and efficacy of therapy-standing orders in [facility]. Call with questions or problems in the interim. Assessment & Plan (05/06/2020 3:23 PM EDT): Carefully continue current dose of allopurinol. Proper hydration. Low purine diet. Return in 6 months with prior blood work monitoring safety and efficacy of therapy-standing orders in [facility]. Call with questions or problems in the [...] achieve expected goal consider formal dietary/nutritional support. Encounters Date Type Department Care Team Description 01/02/2025 Refill [facility] [address] [place] [address] Joellen Kennedy MD Medication Refill from Last 3 Months Immunizations Immunization Administration Dates Next Due COVID-19 [...] EST) SODIUM 137 133 - 146 mmol/L [facility] POTASSIUM 4.6 3.3 - 5.1 mmol/L [facility] CHLORIDE 102 96 - 108 mmol/L [facility] CO2 23 21 - 35 mmol/L [facility] BUN 24(H) 6 - 19 mg/dL [facility] CREATININE 0.90 0.5 - 1.5 mg/dL [facility] GLUCOSE 102(H) 70 - 99 mg/dL [facility] ALBUMIN 4.1 3.9 - 4.8 g/dL [facility] TOTAL PROTEIN 7.2 6.5 - 8.0 g/dL [facility] CALCIUM 9.6 8.4 - 10.3 mg/dL [facility] ALKALINE PHOSPHATASE 117 39 - 117 U/L [facility] TOTAL BILIRUBIN 0.6 0.0 - 1.2 mg/dL [facility] AST 44(H) 0 - 37 U/L [facility] ALT 47(H) 0 - 40 U/L [facility] GLOBULIN 3.1 1 - 4.8 g/dL [facility] EGFR 89 >59 mL/min/1.7 3m2 [facility] Comment:Estimated glomerular filtration rate calculated using the CKD-EPI refit equation. ANION GAP 17 10 - 20 mmol/L [facility] Blood 04/13/2024 10:1 2 AM EST 04/13/2024 10:14 AM EST us Joellen Kennedy MD LAB BLOOD BKR ORDERABLES Final Result Performing Organization Address City/State/[facility] Co de Phone Number [address] [address] from Last 3 Months or Most Recently Relevant to Health Maintenance Insurance [employer] HMO REPLACEMENT [address] [place] [address] MEDICARE HMO REPLACEMENT [employer] RE[employer]EMENT [employer] H[employer] REPLACEMENT [facility] MEDICARE HMO REPLACEMENT [employer] H[employer] REPLACEMENT [facility] MEDICARE HMO REPLACEMENT [employer]EMENT Care Teams Physical Biochemist Relationship Specialty Start Date End Date Ricardo Vasquez MD [address] [place] [address] Dr SALAS [address] [place] [id number] PCP - General Internal Medicine 08/13/17 Additional Source Comments The information contained in this document represents components of the legal health record. It is not the complete legal health record.[facility]
== END 2025-02-07 09:47 | disposition home or self-care (01) ==
LOC: HO.HMCHD 09:05
PROVIDERS: PCP Student in an Organized Health Care Education/Training Program; Visit Provider Student in an Organized Health Care Education/Training Program
DX: R05.3 Chronic cough (principal); J84.10 Pulmonary fibrosis, unspecified; K21.9 Gastro-esophageal reflux disease without esophagitis; E78.5 Hyperlipidemia, unspecified; R73.03 Prediabetes; N18.31 Chronic kidney disease, stage 3a; M10.9 Gout, unspecified; B00.1 Herpesviral vesicular dermatitis